=== PATIENT | male | born 1945 | race Caucasian/White ===

== ENCOUNTER 2017-09-21 11:26 | Inpatient (IN) | payer MEDICARE, MEDICAID ==
[2017-09-21] MEDS ORDERED: ISOVUE-370 76%-LOCM 1 ML ONE (12:03)
[2017-09-21 12:12] LABS: #Eosinphils 0.1 thou/uL (0.0-0.7); #Lymphocytes 1.6 thou/uL (1.20-3.40); #Monocytes 1.7 thou/uL (0.11-0.59); #Neutrophils 16.2 thou/uL (1.40-6.50); %Basophils 0.2 % (0.0-1.0); %Eosinophils 0.4 % (0.0-10.0); %Monocytes 8.8 % (0.0-10.0); %Neutrophils 82.6 % (42.0-75.0); Hemoglobin 14.6 g/dL (14.0-18.0); Mean Corpuscular HGB CONC 32.9 g/dL (32.0-36.0); Mean Corpuscular Hemoglobin 31.5 pg (27.0-31.0); Mean Corpuscular Volume 95.7 fl (80.0-94.0); Mean Platelet Volume 6.5 fL (7.4-10.4); Platelet Count 282 thou/uL (130-400); Red Blood Cell (RBC) Count 4.63 mill/uL (4.70-6.10); White Blood Cell (WBC) Count 19.6 thou/uL (4.8-10.8)
[2017-09-21 12:20] LABS: PTT 24.8 SEC (22.9-36.1); Prothrombin Time 13.6 SEC (12.0-14.7)
[2017-09-21 12:33] LABS: ALT (SGPT) 19 U/L (8-55); AST (SGOT) 64 U/L (5-34); Albumin 3.8 g/dL (3.4-4.8); Alkaline Phosphatase 49 U/L (40-150); Anion Gap 20 mmol/L (10-20); BUN (Urea Nitrogen) 26 mg/dL (8.4-25.7); Bilirubin, Total 1.5 mg/dL (0.2-1.2); CK (CPK) 1641 U/L (30-200); Calc. Creatinine Clearance 0 mL/min (70-130); Calcium 9.3 mg/dL (7.8-10.44); Carbon Dioxide 18 mmol/L (23-31); Chloride 94 mmol/L (98-107); Estimated GFR-MDRD 79; Globulin 3.8 g/dL (2.4-3.5); Glucose 107 mg/dL (83-110); Potassium 4.3 mmol/L (3.5-5.1); Protein, Total 7.6 g/dL (5.8-8.1); Sodium 128 mmol/L (136-145)
[2017-09-21 12:43] LABS: CKMB 7.7 ng/mL (0-6.6)
[2017-09-21 12:50] LABS: Troponin I 0.035 ng/mL (< 0.028)
--- NOTE | 2017-09-21 13:05 | RAD ---
LEFT KNEE 4 VIEWS: HISTORY: Pain. COMPARISON: None. FINDINGS: There are severe ostial calcifications. Surgical clips medial posterior soft tissues. No fracture. No malalignment. No significant edema. IMPRESSION: 1. No acute fracture or malalignment. 2. Severe vascular calcifications. POS: [facility]
--- NOTE | 2017-09-21 13:21 | RAD ---
CHEST ONE VIEW: History: Syncope. Comparison: 04-24-14 FINDINGS: New median sternotomy wires. No pneumothorax. No effusion. Cardiac silhouette and mediastinal contour s are similar. IMPRESSION: No acute intrathoracic abnormality. POS: [facility]
--- NOTE | 2017-09-21 15:06 | CT ---
CT BRAIN WITHOUT CONTRAST: HISTORY: Injury, right-sided pain, dizziness. FINDINGS: Comparison is made with the exam of 04/24/14. Changes of cortical atrophy and chronic small-vessel ischemic disease are again seen. The ventricula r size is appropriate and the basilar cisterns are patent. No evidence of acute infarct, hemorrhage, midline shift, or abnormal extraaxial fluid collections are seen. The bony calvarium is intact. Th ere is mucosal disease in the left maxillary sinus. IMPRESSION: No CT evidence of acute intracranial process. POS: [facility]
--- NOTE | 2017-09-21 15:15 | RAD ---
LEFT HIP TWO VIEWS: History: Fall. Comparison: None. FINDINGS: There is a fracture of the left femoral neck with foreshortening and mild displacement. IMPRESSION: Impacted left femoral neck fracture. POS: [facility]
--- NOTE | 2017-09-21 15:16 | RAD ---
PELVIS ONE VIEW: History: Fall. Comparison: None. FINDINGS: There is an impacted left femoral neck fracture with mild lateral displacement and mild varus angulat ion. IMPRESSION: Impacted left femoral neck fracture. POS: [facility]
[2017-09-21 15:21] LABS: Bilirubin Moderate (Negative); Blood, Urine Small (Negative); Clarity CLOUDY (Clear); Glucose, Urine (Dipstick) Negative (Negative); Leukocyte Negative (Negative); Nitrite Negative (Negative); Protein, Urine (Dipstick) 300 mg/dL (Neg-Trace); Specific Gravity, Urine 1.036 (1.002-1.036); pH, Urine 5.5 (5.0-9.0)
--- NOTE | 2017-09-21 15:21 | CT ---
CT FACIAL BOENS WITH CORONAL AND SAGITTAL REFORMATIONS: HISTORY: A 72-year-old male with a history of fall, dizziness, right-sided facial pain. FINDINGS: The facial bones appear intact. No temporomandibular dislocation is seen. No air fluid levels are s een in the paranasal sinuses. There is mucosal disease in the left maxillary sinus. There is tea bullosa of the middle turbinates bilaterally. IMPRESSION: No CT evidence of facial bone fracture. POS: [facility]
[2017-09-21 15:22] LABS: Bacteria/HPF None Seen HPF (None Seen); Pathc Cast-AUWi Flag 1.89 (0-2.49); Squamous Epithelial 0-3 HPF (0-3); WBC/HPF 0-3 HPF (0-3)
--- NOTE | 2017-09-21 15:24 | CT ---
CT CERVICAL SPINE WITHOUT CONTRAST: History Fall. Trauma. COMPARISON: None available. FINDINGS: The occipital condyles are intact. The odontoid process is intact. The mastoids are well aerated. Multilevel spondylosis of the cervical spine. Degenerative disk space disease most severe at C5-6 an d C6-7. There is 2 mm C7 over T1 anterolisthesis due to degenerative facet arthropathy. There are dense calcifications of intradural vertebral arteries bilaterally. The lung apices are clear. The paraspinal soft tissues are unremarkable. IMPRESSION: Degenerative changes. No fracture of the cervical spine. POS: [facility]
[2017-09-21 15:26] LABS: Hyaline Casts/LPF 0-3 HYALINE CAST LPF (0-3 Hyaline)
--- NOTE | 2017-09-21 15:41 | CT ---
CT THORAX WITH CONTRAST CT ABDOMEN WITH CONTRAST CT PELVIS WITH CONTRAST: (trauma protocol) 09/21/17 HISTORY: 72-year-old male status post fall, resulting in trauma to the chest, abdomen and pelvis. TECHNIQUE: IV administration of iodinated contrast media. No oral contrast media. Single phase scans of thorax, abdomen, and pelvis. Sagittal reconstructions of thoracic and lumbar spine. FINDINGS: Thoracic and lumbar spine: There is an old burst fracture with approximately 75% loss of height of T11, and an old compression f racture with anterior wedge loss of height of approximately 50% of T10, which were both present on pr evious MRI of 05/27/16. The rest of the thoracic and lumbar vertebral body heights are preserved. Thorax: The lungs are essentially clear. No pleural effusion or pneumothorax. No mediastinal hematoma or lymp hadenopathy. Sternotomy wires. Extensive atherosclerotic calcification of all major pulmonary arterie s. No cardiomegaly or pericardial effusion. No grossly displaced rib fracture or grossly displaced ac [place] sternal fracture. Abdomen: No evidence of traumatic injury to the bilateral kidneys, adrenals, pancreas, liver, or spleen. No hy dronephrosis. Atherosclerotic calcification of thoracic and abdominal aorta without aneurysm or ruptu re. Heavy atherosclerotic calcification of proximal bilateral renal arteries and superior mesenteric artery. No free fluid or retroperitoneal hematoma. Pelvis: There is a subcapital left femoral neck acute fracture with anterior angulation of fracture apex, and approximately 25 to 50% bone width anterosuperior displacement of distal fragment. The pelvic ring i s intact. No dislocation. No free fluid within the pelvic cavity. No extrapelvic hematoma. No traumat ic injury to the urinary bladder. Heavy atherosclerotic calcification of common, internal, and executive director al, iliac arteries, and the common, superficial, and profunda, femoral arteries. IMPRESSION: 1. Acute, traumatic, displaced, closed, left subcapital femoral neck fracture. 2. No other acute, traumatic injury identified. 3. Old compression fracture of T10 and old burst fracture of T11. 4. Extensive atherosclerotic disease of entire aorta and all of its branches, and all of the cor onary arteries. BECCA Davison POS: [facility]
[2017-09-21] MEDS ORDERED: Morphine 2 mg/2ml in 0.9% NaCl PF SYRINGE ONE (15:43)
[2017-09-21] MEDS ORDERED: Ondansetron ODT 4 MG TAB PO PRN (16:24)
[2017-09-21] MEDS ORDERED: Dextrose 50% Abboject 50 ML SYRINGE SLOW IVP PRN (16:24)
[2017-09-21] MEDS ORDERED: HYDROcodone/Acetaminophen 10/325 mg Tablet PO PRN (16:24)
[2017-09-21] MEDS ORDERED: Dextrose 5% in Water 1,000 ML IV PRN (16:24)
[2017-09-21] MEDS ORDERED: Ondansetron HCl/PF 4 MG/2 ML Vial IVP PRN (16:24)
[2017-09-21] MEDS ORDERED: CEFAZOLIN/Water 2 GM/20 ML SYRINGE SLOW IVP SCH (16:45)
--- NOTE | 2017-09-21 16:53 | HP ---
DATE OF ADMISSION: 09/21/2017 REQUESTING PHYSICIAN: Graham Mcdaniel M.D. ATTENDING SURGEON: Luis Antonio Yates M.D. CONSULTATIONS: Orthopedics, Dr. Flores. HISTORY OF PRESENT ILLNESS: The patient is a 72-year-old man who lives alone at the [facility] when he fell yesterday. He states that he was unable to activate his Life Alert and he believes it malfunctioned. The patient is unsure how long he actually was lying on the ground, b ut it was greater than 12 hours, he was found this afternoon and brought to the emergency department, evaluated and examined, noted to have a hip fracture and mild rhabdomyolysis, at which time we were asked to evaluate the patient for admission and obtain orthopedic consultation. ALLERGIES: None. MEDICATIONS: The patient's current medication list is not available. The nurses are attempting to r each the senior care to obtain his current medical list. PAST MEDICAL HISTORY: Hypertension, Parkinson's disease, coronary artery disease. PAST SURGICAL HISTORY: Appendectomy, hernia repair, coronary artery bypass graft surgery and tonsill ectomy. SOCIAL HISTORY: Patient lives independently in a senior care/assisted living. Patient states he dr inks approximately 5 drinks per day. He quit smoking many years ago and denies drug use. FAMILY MEDICAL HISTORY: Unknown. REVIEW OF SYSTEMS: Ten-point review of systems was negative, unless otherwise stated. PHYSICAL EXAMINATION: VITAL SIGNS: Blood pressure 156/77, heart rate 88, respirations 18, temperature is 98.4, oxygen satu ration is 95% on room air. GENERAL: The patient is resting comfortably in ER bed. He is alert and oriented x3. [place] coma s elly is 15. HEENT: Head is normocephalic. He has contusions noted to bilateral periorbital areas with some ecch ymosis on both and a superficial laceration to the right periorbital area. Nose is atraumatic withou t discharge. Ears are atraumatic without discharge. Oropharynx is clear. NECK: Nontender. Trachea is midline. No JVD. CHEST: Clear to auscultation with moderate inspiratory and expiratory effort. HEART: Regular rate and rhythm. ABDOMEN: Soft, flat, nontender with active bowel sounds. Pelvis is stable. The patient has tendern ess to palpation on the left consistent with his hip fracture. EXTREMITIES: Neurovascularly intact x4. BACK: By history was reported to be atraumatic and nontender. LABORATORY FINDINGS: White blood cell count 19.6, hemoglobin 14.6, hematocrit 44.3, platelets 282. Sodium 128, potassium 4.3, chloride 94, CO2 18, BUN 26, creatinine 0.94, glucose 107, magnesium 1.5, total bilirubin 1.5, AST 64, ALT 19, alkaline phosphatase 49. CK 1641, CK-MB 7.7, troponin 0.035. B PRINTER SLOTTER FEEDER 73.5, PT 14, INR 1, PTT 25. Urinalysis, protein 300, ketones 15, rbc's 7-10. RADIOGRAPHIC REPORTS: CT of the brain without contrast shows no CT evidence of acute intracranial pr ocess. CT of the facial bones without contrast shows no CT evidence of facial bone fractures. CT of the C-spine without contrast showed degenerative changes, no fracture of the cervical spine. CT of the chest, abdomen and pelvis with IV contrast shows an acute traumatic displaced closed left subcapi favian femoral neck fracture. No other acute traumatic injuries are identified. AP chest shows no acut e intrathoracic abnormality. Four views of the left knee showed no acute fracture or malalignment. Two views of the left hip showed impacted left femoral neck fracture. AP pelvis shows a left femoral neck shaft fracture. ASSESSMENT AND PLAN: 1. Status post fall greater than 12 hours ago. 2. Left hip fracture. 3. Rhabdomyolysis. 4. Pain secondary to acute trauma. Plan will be to admit the patient to the surgical floor. IV hydration to include sodium bicarbonate drip, pain control, pulmonary toilet, gastritis and mechanical DVT prophylaxis and pain management. The evaluation, examination and laboratory radiographic findings were done with Dr. Yates in the em ergency department and he was in agreement with this plan. The patient will be made n.p.o. after mid night and we will recheck his labs in the morning, sooner as needed.
[2017-09-21] MEDS ORDERED: Morphine 2 MG/ML SYRINGE SLOW IVP PRN (17:30)
[2017-09-21] MEDS ORDERED: Morphine 4 MG/ML VIAL SLOW IVP PRN (17:45)
[2017-09-21] MEDS ORDERED: Sodium Bicarbonate 150 MEQ in D5 1/4 NS 1,000 ML IV SCH (18:00)
[2017-09-21] MEDS: Acetaminophen 1,000 MG in Premix Bag 1 BAG IVPB SCH ×2 (18:04→23:38)
[2017-09-21] MEDS: Ketorolac Tromethamine 30 MG/ML VIAL IVP SCH ×2 (18:05→23:37)
[2017-09-21] MEDS: Famotidine 20 MG TAB PO SCH (20:16)
[2017-09-21 20:43] LABS: Lactic Acid 1.4 mmol/L (0.5-2.2)
[2017-09-21] MEDS ORDERED: Magnesium 2 GM/NS 0.9% 100 ML 2 GM in Premix Bag 1 BAG IVPB SCH (21:00)
[2017-09-21] MEDS ORDERED: Senokot 8.6 MG TAB PO PRN (21:17)
[2017-09-21] MEDS ORDERED: Acetaminophen 325 MG TAB PO PRN (21:17)
[2017-09-21] MEDS ORDERED: Nitroglycerin 0.4 MG TAB (25 Tab Bottle) PO PRN (21:17)
[2017-09-21] MEDS ORDERED: Bisacodyl 10 MG SUPP PR PRN (21:17)
--- NOTE | 2017-09-21 21:40 | PDOC.EVN ---
Event Note - Event Note Event Note: Patient seen and examined. Note dictated. Full code. DPOA - family
[2017-09-21] MEDS ORDERED: cloNIDine 0.1 MG TAB PO PRN (21:41)
[2017-09-21] MEDS ORDERED: Polyethylene Glycol 3350 17 GM Packet PO PRN (21:41)
[2017-09-21] MEDS ORDERED: Labetalol HCl 100 MG/20 ML VIAL SLOW IVP PRN (21:41)
[2017-09-21] MEDS ORDERED: Diabetic Tussin 200 MG/10 ML UDCUP PO PRN (21:41)
[2017-09-21] MEDS ORDERED: Calcium Carbonate 500 MG ChewTAB PO PRN (21:41)
[2017-09-21] MEDS ORDERED: Loratadine 10 MG TAB PO PRN (21:41)
[2017-09-21] MEDS ORDERED: Eucerin (Mineral Oil/Petrolatum,White) 30 gm Jar TOP PRN (21:41)
[2017-09-21] MEDS ORDERED: Aspirin 81 mg Enteric Coated Tablet PO SCH (21:45)
[2017-09-21] MEDS ORDERED: predniSONE 20 MG TAB PO SCH (21:45)
[2017-09-21] MEDS ORDERED: Folic Acid 1 MG TAB PO SCH (21:45)
[2017-09-21] MEDS ORDERED: Multivit, Therapeutic 1 TAB PO SCH (21:45)
[2017-09-21] MEDS ORDERED: Metoprolol Tartrate 25 MG TAB PO SCH (22:00)
[2017-09-21] MEDS ORDERED: TROSPIUM 20 MG TABLET PO SCH (22:00)
[2017-09-21] MEDS ORDERED: Gabapentin 300 MG CAP PO SCH (22:00)
--- NOTE | 2017-09-21 22:42 | ADD-CON ---
This is an addendum to H&P dictated by Dr. Jr Lane, Trauma PA. This is a 72-year-old male who presents after a fall, was down for 24 hours before he was found. He has been found to have evidence of left femoral neck fracture. He has been hemodynamically stable. His creatine kinase is elevated at 1641 and so he is in rhabdomyolysis. The patient will be admitted , medical consult will be obtained. Dr. Flores will see from an orthopedic standpoint. Again, ple ase see Dr. Jr Lane's note for details.
--- NOTE | 2017-09-21 23:20 | CON ---
DATE OF CONSULTATION: 09/21/2017 REASON FOR CONSULTATION: Medical management. PRIMARY CARE PHYSICIAN: Jc Prieto M.D. ATTENDING PHYSICIAN: Luis Antonio Yates M.D. (Trauma team) REASON FOR ADMISSION: Fall. HISTORY OF PRESENT ILLNESS: Patient is a 72-year-old male with hypertension, hyperlipidemia, Khai on disease and degenerative joint disease on chronic steroids, presented to the emergency room with a n episode of fall. Patient is a poor historian and not much information is available from the patien t. He was on the floor for approximately 24 hours per ER report. He denies any loss of consciousnes s. He is unable to describe his symptoms appropriately. He denies any chest pain, shortness of evnone th, syncope, fever, chills or diaphoresis. In the emergency room, initial vital signs showed temperature 98.2, respiration 18, pulse rate of 121 with blood pressure 130/85. His EKG showed sinus tachycardia without significant ST-T wave changes. His CK was 1641 with sodium of 128. WBC of 19.6 with 82.6% neutrophils, lactic acid 3.2. Urinalys is was negative for WBC or bacteria. His chest x-ray was negative for infiltrate. CT scan of the br ain, facial bone CT, neck CT and chest abdomen CT was negative for acute findings except for subcapit al left femoral neck fracture with anterior angulation of fracture and displacement of the distal fra gment. He received morphine with IV fluids in the emergency room. PAST MEDICAL HISTORY: 1. Hypertension 2. Hyperlipidemia. 3. Parkinson disease. 4. Degenerative disease on chronic steroids. 5. Chronic hyponatremia. 6. Chronic alcoholism. 7. History of falls. 8. Deconditioning. 9. History of compression fractures of thoracic spine. 10. Coronary artery disease. 11. History of paroxysmal atrial fibrillation in the past. PAST SURGICAL HISTORY: 1. Coronary artery bypass grafting. 2. Appendectomy. 3. Tonsillectomy. CURRENT HOME MEDICATIONS: The patient is unable to recall any of his home medications. Per review o radha Mendez's office record from April of this year, his medications were, metoprolol tartrate 50 mg daily, Cymbalta 30 mg twice a day, gabapentin 300 mg b.i.d., losartan 100 mg daily, Mobic 15 mg marily y, amlodipine 2.5 mg daily, prednisone 10 mg daily, tolterodine ER 4 mg daily. ALLERGIES: The patient is allergic to STATINS that causes muscle aches. FAMILY HISTORY: Negative for any inheritable disease per patient report. SOCIAL HISTORY: Patient currently lives alone. He drinks 3-4 beers on the daily basis. Denies any drug use. He ambulates with the help of a rolling walker. He has history of multiple falls in the p ast. REVIEW OF SYSTEMS: The following complete review of systems was negative, unless otherwise mentioned in the HPI or below: Constitutional: Weight loss or gain, ability to conduct usual activities. Skin: Rash, itching. Ey es: Double vision, pain. ENT/Mouth: Nose bleeding, neck stiffness, pain, tenderness. Cardiovascul ar: Palpitations, dyspnea on exertion, orthopnea. Respiratory: Shortness of breath, wheezing, coug h, hemoptysis, fever or night sweats. Gastrointestinal: Poor appetite, abdominal pain, heartburn, n ausea, vomiting, constipation, or diarrhea. Genitourinary: Urgency, frequency, dysuria, nocturia. Musculoskeletal: Pain, swelling. Neurologic/Psychiatric: Anxiety, depression. Allergy/Immunologic : Skin rash, bleeding tendency. PHYSICAL EXAMINATION: VITAL SIGNS: As discussed above. GENERAL: A 72-year-old male in no apparent distress. Denies any pain at this time. HEENT: Head atraumatic, normocephalic, sclerae are anicteric. Dry mucous membrane, no oral lesion. NECK: Supple, no JVD appreciated. No carotid bruit. LUNGS: Clear to auscultation bilaterally. No wheezing or rales. HEART: S1, S2 present. Regular rate and rhythm, tachycardic. No rubs or gallops. ABDOMEN: Soft, nontender, bowel sounds present, no rebound or guarding. EXTREMITIES: No edema or calf tenderness. NEUROLOGIC: Grossly nonfocal, moves all four extremities. PSYCHIATRY: Alert, awake, oriented x3. MUSCULOSKELETAL: No joint swelling or tenderness except for left lower extremity which was not asses sed. SKIN: Warm and dry. LYMPH NODES: No palpable lymph nodes in the neck. PERIPHERAL VASCULAR: Radial pulses palpable bilaterally. LABORATORY AND X-RAY FINDINGS: CBC showed WBC 19.6 with hemoglobin 14.6, platelet 282. PT, INR, PTT normal range. Chemistries showed sodium 128, potassium 4.3, chloride 94, bicarbonate 18, BUN 26, cr eatinine 0.94, glucose 107. Magnesium 1.5. Lactic acid 3.2. Repeat lactic acid 1.4. CK was 1641, total bilirubin 1.5 with AST of 64. Urinalysis was negative for WBC or bacteria. Chest x-ray by my review as discussed above. EKG by my review as discussed above. IMPRESSION AND PLAN: 1. Left femoral neck fracture, management per trauma team. 2. Rhabdomyolysis. 3. Hypomagnesemia. 4. Chronic hyponatremia. 5. Metabolic acidosis/lactic acidosis. 6. Abnormal liver function tests, probably secondary to alcoholic hepatitis. 7. Dehydration. 8. Leukocytosis without any infectious etiology. 9. Sinus tachycardia, probably secondary to dehydration. 10. Coronary artery disease, status post bypass. 11. Parkinson disease. 12. History of degenerative joint disease on chronic steroids, prescribed by Dr. Mendez 13. Depression, on Cymbalta. 14. Chronic pain syndrome on gabapentin. 15. Hypertension, on metoprolol, losartan and amlodipine. 16. Chronic alcoholism with a history of delirium tremens in the past. 17. History of multiple falls. 18. Physical deconditioning. 19. Elevated troponins, probably secondary to demand ischemia. 20. Paroxysmal atrial fibrillation in the past, not an anticoagulation candidate due to recurrent fa lls. PLAN: The patient is currently admitted under trauma team on the surgical floor. We will resume bet a blockers at a low dose. We will resume chronic steroids to prevent going into adrenal insufficienc y. We will repeat cardiac enzymes in a.m. Continue IV fluids. Replace magnesium. Add thiamine, fo lic acid and multivitamins. Due to elevated troponins in the indeterminate range, we will start him on aspirin. Patient never had any chest pain. His troponins are probably elevated from demand ische [place] from sinus tachycardia. We will repeat labs in a.m. Thank you for this consultation. We will follow with you. Plan of care was discussed with the patient in detail. He stated understanding.
[2017-09-22] MEDS: Acetaminophen 1,000 MG in Premix Bag 1 BAG IVPB SCH ×2 (05:07→12:00)
[2017-09-22] MEDS: Ketorolac Tromethamine 30 MG/ML VIAL IVP SCH (05:08)
[2017-09-22] MEDS: Metoprolol Tartrate 25 MG TAB PO SCH ×3 (05:16→22:55)
[2017-09-22 06:31] LABS: #Eosinphils 0.3 thou/uL (0.0-0.7); #Lymphocytes 2.8 thou/uL (1.20-3.40); #Monocytes 1.3 thou/uL (0.11-0.59); #Neutrophils 12.4 thou/uL (1.40-6.50); %Basophils 0.2 % (0.0-1.0); %Lymphocytes 16.5 % (21.0-51.0); %Monocytes 7.9 % (0.0-10.0); %Neutrophils 73.5 % (42.0-75.0); Hemoglobin 12.9 g/dL (14.0-18.0); Mean Corpuscular HGB CONC 33.3 g/dL (32.0-36.0); Mean Corpuscular Hemoglobin 31.9 pg (27.0-31.0); Mean Corpuscular Volume 95.8 fl (80.0-94.0); Mean Platelet Volume 6.7 fL (7.4-10.4); Platelet Count 262 thou/uL (130-400); RBC Distribution Width 11.8 % (11.5-14.5); Red Blood Cell (RBC) Count 4.06 mill/uL (4.70-6.10); White Blood Cell (WBC) Count 16.8 thou/uL (4.8-10.8)
[2017-09-22 06:50] LABS: Troponin I 0.043 ng/mL (< 0.028)
[2017-09-22 06:52] LABS: CKMB 7.5 ng/mL (0-6.6); Critical Call CKMBM RESULT DECREASING
[2017-09-22 07:19] LABS: ALT (SGPT) 18 U/L (8-55); AST (SGOT) 57 U/L (5-34); Albumin 3.4 g/dL (3.4-4.8); Alkaline Phosphatase 49 U/L (40-150); Anion Gap 15 mmol/L (10-20); BUN (Urea Nitrogen) 36 mg/dL (8.4-25.7); Bilirubin, Total 1.2 mg/dL (0.2-1.2); CK (CPK) 1212 U/L (30-200); Calc. Creatinine Clearance 47 mL/min (70-130); Calcium 8.7 mg/dL (7.8-10.44); Carbon Dioxide 25 mmol/L (23-31); Chloride 95 mmol/L (98-107); Estimated GFR-MDRD 49; Globulin 3.1 g/dL (2.4-3.5); Glucose 90 mg/dL (83-110); Magnesium 2.7 mg/dL (1.6-2.6); Phosphorus 3.5 mg/dL (2.3-4.7); Potassium 3.6 mmol/L (3.5-5.1); Protein, Total 6.5 g/dL (5.8-8.1); Sodium 131 mmol/L (136-145)
[2017-09-22] MEDS ORDERED: predniSONE 20 MG TAB PO SCH (08:00)
[2017-09-22 08:12] LABS: Anion Gap 16 mmol/L (10-20); BUN (Urea Nitrogen) 38 mg/dL (8.4-25.7); CK (CPK) 1085 U/L (30-200); Calc. Creatinine Clearance 46 mL/min (70-130); Calcium 8.6 mg/dL (7.8-10.44); Carbon Dioxide 25 mmol/L (23-31); Chloride 94 mmol/L (98-107); Estimated GFR-MDRD 47; Glucose 106 mg/dL (83-110); Potassium 3.6 mmol/L (3.5-5.1); Sodium 131 mmol/L (136-145)
[2017-09-22] MEDS ORDERED: DULoxetine 30 MG CAP PO SCH (09:00)
[2017-09-22] MEDS ORDERED: Gabapentin 300 MG CAP PO SCH (09:00)
[2017-09-22] MEDS ORDERED: Meropenem 1 GM in Sodium Chloride 0.9% 100 ML IVPB SCH (09:00)
--- NOTE | 2017-09-22 09:02 | PDOC.PN ---
- Subjective Encounter Start Date: 09/22/17 Encounter Start Time: 08:58 Patient seen and examined. Lethargic. No overnight events - Objective Resuscitation Status: Resuscitation Status FULL:Full Resuscitation MAR Reviewed: Yes Vital Signs & Weight: Vital Signs (12 hours) Temp Pulse Resp BP Pulse Ox 09/22/17 07:30 97.6 F 67 16 109/67 96 09/22/17 05:25 75 18 131/87 98 09/22/17 04:38 97.6 F 70 18 96/66 96 09/22/17 00:40 99.0 F 97 18 123/76 95 Weight Weight 155 lb I&O: 09/21/17 09/22/17 09/23/17 06:59 06:59 06:59 Intake Total 1320 Output Total 350 Balance 970 Result Diagrams: 09/22/17 05:28 09/22/17 07:37 Phys Exam - Physical Examination Constitutional: NAD Respiratory: no wheezing, no rhonchi S Cardiovascular: RRR, no rub no heaves/pulsations Gastrointestinal: soft, non-tender, positive bowel sounds Musculoskeletal: no edema Neuro/Psych - Cannot assess due to lethargy Dx/Plan - Plan DVT proph w/SCDs IMPRESSION: 1. Toxic Metabolic Encephalopathy - multifactorial 2. Rhabdomyolysis. 3. Coronary artery disease, status post bypass. started on ASA 4. Suspected Sepsis 5. Chronic hyponatremia 6. Abnormal liver function tests, probably secondary to alcoholic hepatitis. 7. Chronic pain syndrome on gabapentin. 8. Depression, on Cymbalta. 9. Hypertension 10. History of degenerative joint disease on chronic steroids 11. Chronic alcoholism with a history of delirium tremens in the past. 12. History of multiple falls. 13. Elevated troponins, probably secondary to demand ischemia. 14. Paroxysmal atrial fibrillation in the past, not an anticoagulation candidate due to recurrent falls/Left femoral neck fracture, management per trauma team/Hypomagnesemia/Metabolic acidosis/lactic acidosis/Dehydration/ Parkinson disease/Sinus tachycardia, probably secondary to dehydration/Physical deconditioning. PLAN: * Transfer to stroke * Consult Neuro * Hold Cymbalta/Gabapentin * CT brain ordered * Neurochecks * Blood cultures * Empiric Atbx * Cont other meds as below * Change Prednisone to IV Solumedrol 20 mg Q8h due to chronic steroid use Laboratory Tests 09/22/17 09/22/17 09/22/17 05:28 05:28 05:28 Creatine Kinase 1212 H Troponin I 0.043 H TSH 3rd Generation 1.0116 Review of Systems - Review of Systems Other: Cannot obtain due to current cognition - Medications/Allergies Allergies/Adverse Reactions: Allergies Allergy/AdvReac Type Severity Reaction Status Date / Time tramadol Allergy Verified 05/02/14 08:59 Medications: Current Medications Acetaminophen (Tylenol) 650 mg PO Q4H PRN PRN Reason: Headache/Fever or Pain Albuterol/Ipratropium (Duoneb) 3 ml NEB Q4H PRN PRN Reason: Wheezing Aspirin (Ecotrin) 81 mg PO DAILY [facility] Bisacodyl (Dulcolax) 10 mg CA Q24H PRN PRN Reason: Constipation Calcium Carbonate (Tums) 1,000 mg PO Q4H PRN PRN Reason: Heartburn or Indigestion Cefazolin Sodium (Ancef) 2 gm SLOW IVP WILLCALL [facility] Stop: 09/22/17 16:46 Clonidine (Catapres) 0.1 mg PO Q4H PRN PRN Reason: Systolic BP > 180 Dextrose/Water (Dextrose 50%) 25 gm SLOW IVP PRN PRN PRN Reason: Hypoglycemia Docusate Sodium (Colace) 100 mg PO BID [facility] Famotidine (Pepcid) 20 mg PO BID [facility] Last Admin: 09/21/17 20:16 Dose: 20 mg Folic Acid (Folvite) 1 mg PO HS [facility] Glucagon (Glucagon) 1 mg IM PRN PRN PRN Reason: Hypoglycemia Guaifenesin (Robitussin Sf) 200 mg PO Q4H PRN PRN Reason: Cough Hydralazine HCl (Apresoline) 10 mg SLOW IVP Q6H PRN PRN Reason: SBP > 150 Acetaminophen 1,000 mg/ Device 100 mls @ 400 mls/hr IVPB Q6HR [facility] Stop: 09/22/17 12:14 Last Admin: 09/22/17 05:07 Dose: 100 mls Dextrose/Water (D5w) 1,000 mls @ 0 mls/hr IV .Q0M PRN; As Directed PRN Reason: Hypoglycemia Sodium Bicarbonate 150 meq/ (Dextrose/Sodium Chloride) 1,150 mls @ 110 mls/hr IV INF [facility] Last Admin: 09/21/17 20:17 Dose: 1,150 mls Vancomycin HCl 1 gm/ Device 200 mls @ 200 mls/hr IVPB Q12H [facility] Meropenem 1 gm/ Sodium (Chloride) 100 mls @ 200 mls/hr IVPB Q8H [facility] Vancomycin HCl 1 gm/ Device 200 mls @ 200 mls/hr IVPB ASDIR [facility] Labetalol HCl (Normodyne) 10 mg SLOW IVP Q4H PRN PRN Reason: Systolic BP > 180 Loratadine (Claritin) 10 mg PO DAILYPRN PRN PRN Reason: Sinus Symptoms Methylprednisolone Sodium Succinate (Solu-Medrol) 20 mg IVP Q8H [facility] Metoprolol Tartrate (Lopressor) 12.5 mg PO BID [facility] Last Admin: 09/22/17 05:16 Dose: 12.5 mg Mineral Oil/White Petrolatum (Eucerin Cream) 0 gm TOP BIDPRN PRN PRN Reason: Dry Skin Miscellaneous Medication (Pharmacy To Dose) 1 each IVPB ONE PRN PRN Reason: Pharmacy to dose Morphine Sulfate (Morphine) 2 mg SLOW IVP Q2H PRN PRN Reason: Mild Pain (1-3) Morphine Sulfate (Morphine) 4 mg SLOW IVP Q2H PRN PRN Reason: Moderate Pain (4-6) Multivitamins (Theragran) 1 tab PO HS [facility] Nitroglycerin (Nitrostat) 0.4 mg PO Q5MIN PRN PRN Reason: Chest Pain Ondansetron HCl (Zofran Odt) 4 mg PO Q6H PRN PRN Reason: Nausea/Vomiting Ondansetron HCl (Zofran) 4 mg IVP Q6H PRN PRN Reason: Nausea Polyethylene Glycol (Miralax) 17 gm PO DAILY PRN PRN Reason: Constipation Saccharomyces Boulardii (Florastor) 250 mg PO DAILY [facility] Senna (Senokot) 2 tab PO HSPRN PRN PRN Reason: Constipation Sodium Chloride (Flush - Normal Saline) 10 ml IVF PRN PRN PRN Reason: Saline Flush Thiamine HCl (Thiamine) 100 mg PO HS [facility] Trospium (Trospium Chloride) 20 mg PO BID [facility]
[2017-09-22] MEDS ORDERED: Vancomycin HCl 1 GM in Premix Bag 1 BAG IVPB SCH ×4 (09:30→14:00)
--- NOTE | 2017-09-22 10:58 | CT ---
CT BRAIN: History: Altered mental status, lethargy. Fall at home. Technique: Noncontrast enhanced CT images of the brain obtained from the base of the skull to the matthew shilpa. Brain and bone windows were obtained. Comparison: One day earlier. FINDINGS/IMPRESSION: No evidence of acute intracranial masses, hemorrhages, strokes or contusions seen. Cortical atrophy a nd deep white matter ischemic changes seen. No significant interval change is seen since the previous CT from one day earlier. POS: [facility]
--- NOTE | 2017-09-22 11:52 | CON ---
DATE OF CONSULTATION: 09/21/2017 REQUESTING PHYSICIAN: Dr. Gareth Yates PRINCIPAL COMPLAINT: Right hip pain. HISTORY OF PRESENT ILLNESS: The patient is a 72-year-old gentleman with history of hypertension, hyp erlipidemia, also past history of coronary artery bypass graft. The patient also has a history of Pa lacey's. He lives independently, but does have home health care come on a daily basis for 2-3 hour s per day. The patient was found down earlier today with complaints of right hip pain and inability to move or ambulate. They estimate that he was down for at least 24 hours. It is unknown whether th ere was any loss of consciousness. Upon arrival at [place], he was found to be awake and alert, b ut did not have a great memory of the events that led to his right femoral neck fracture. He was als o worked up with labs and was found to have a CK level of 1641 with a sodium of 128. Given the recen t trauma he was admitted to the Trauma Surgical Service and medical consultation requested for his pr esumed mild rhabdomyolysis and ongoing chronic medical problems. PAST MEDICAL HISTORY: Remarkable for hypertension, hyperlipidemia, Parkinson's, chronic alcoholism, history of falls. PAST SURGICAL HISTORY: Includes coronary artery bypass, appendectomy, tonsillectomy. MEDICATIONS: The patient is unable to give a list of his home medications, but looking at the record in the emergency room it appears he does take metoprolol, gabapentin, losartan, an anti-inflammatory and other medications, although I do not have a comprehensive list at this time. ALLERGIES: STATINS cause muscle aches. FAMILY HISTORY: Noncontributory. SOCIAL HISTORY: He does drink alcohol on a daily basis with 3-4 alcoholic beverages per day. He den ies history of current cigarette smoking. REVIEW OF SYSTEMS: He does not report any obvious fevers or chills recently. He does have some shor tness of breath with exertion. He also has some mild stocking distribution neuropathy distally witho ut an obvious etiology. PHYSICAL EXAMINATION: HEENT: The patient is found to have an abrasion and scab over the right eye, but with no erythema. He also has drainage from the right eye that he states is chronic. His neck is nontender. HEART: Regular rate and rhythm with a 2/6 systolic ejection blowing murmur. LUNGS: Clear to auscultation bilaterally, but with shallow breath sounds. ABDOMEN: Round and nontender. PELVIS: Stable. EXTREMITIES: Remarkable for right lower extremity that is shortened and held in external rotation. He is able to wiggle his toes, but has some mild decreased sensation bilateral lower extremities. Kn ee, ankle and feet appear atraumatic. X-RAY FINDINGS: X-rays of the hip show a base of neck fracture with displacement and some mild commi nution. LABORATORY: The patient has an INR of 1.0. He has a white blood cell count 19.6, a hematocrit of 44 .3 and 282,000 platelets. His chemistries are remarkable for a sodium of 128. He is found to have a CPK of 1641 with a troponin of 0.035. ASSESSMENT: A 72-year-old gentleman status post unwitnessed fall at home with right femoral neck fra cture. PLAN: At this time, we will proceed with hemiarthroplasty once the patient has been stabilized medic ally. We will obtain informed consent prior to surgery. I have briefly discussed with patient the r isks of surgery. These include, but are not limited to bleeding, infection, nerve injury, DVT, PE, l oss of limb or life. The patient appears to understand and does wish to proceed. Consent will be ob tained prior to surgery.
--- NOTE | 2017-09-22 11:52 | PRG ---
DATE OF SERVICE: 09/22/2017 SUBJECTIVE: The patient is hospital day #2 status post ground level fall which he had reportedly fel l approximately 24 hours earlier and was unable to notify anyone. The patient would eventually be ab le to get help and was brought to the Emergency Department, evaluated, examined and noted to be havin g some rhabdomyolysis and sustained a hip fracture. Overnight, there were no reported issues. The p atient was made n.p.o. with the plan being operative intervention on this hip fracture today. Unfort unately, this morning when the orthopedic surgeon came to consent the patient, the patient was extrem rachel drowsy and he felt that he was unable to properly consent the patient for procedure. OBJECTIVE: VITAL SIGNS: Temperature is 97.6, heart rate 67, blood pressure 109/67, respirations 16. GENERAL: The patient is resting in bed. He is asleep. He will open his eyes briefly when I speak t o him and will nod his head that he is not having any pain, but he is definitely more somnolent today than he was yesterday when I had seen him in the emergency department. HEENT: Unchanged. LUNGS: Clear to auscultation with shallow respirations. The patient is not following the command to take a deep breath during my examination. HEART: Regular rate and rhythm. ABDOMEN: Soft, flat, nontender with hypoactive bowel sounds. EXTREMITIES: Capillary refill is less than 3 seconds. Pulses are 2+ in all 4 extremities. LABORATORY DATA: White blood cell count 16.8, hemoglobin 12.9, hematocrit 38.9, platelets 262. Sodi um 131, potassium 3.6, chloride 94, CO2 of 25, BUN 38, creatinine 1.47, glucose 106. CK 1085. CK-MB 7.5, troponin 0.043. ASSESSMENT AND PLAN: 1. Status post ground level fall. 2. Rhabdomyolysis. 3. Left hip fracture. 4. Probable encephalopathy. Plan will be to continue n.p.o. status. We will review all of his medications to ensure that there a re no meds that could possibly contributed to his somnolence. We will obtain a brain CT this morning for the sake of completeness and thoroughness. After discussion with Dr. Rothman we agreed that it is best that move the patient to the stroke floor for monitoring. We will adjust his care as needed. This case was discussed with Dr. Yates at rounds also this morning.
[2017-09-22] MEDS: Aspirin 81 mg Enteric Coated Tablet PO SCH (11:55)
[2017-09-22] MEDS: Docusate 100 MG CAP PO SCH ×2 (11:55→22:14)
[2017-09-22] MEDS: Famotidine 20 MG TAB PO SCH ×2 (11:55→22:14)
[2017-09-22] MEDS: Saccharomyces boulardii 250 MG CAP PO SCH (11:55)
[2017-09-22] MEDS: TROSPIUM 20 MG TABLET PO SCH ×2 (11:56→22:15)
[2017-09-22] MEDS: MEROPENEM 1 GM/50 ML 1 GM in Premix Bag 1 BAG IVPB SCH ×2 (12:00→23:06)
[2017-09-22] MEDS: D5 0.9% NS w/ 20 mEq KCl 1,000 ML IV SCH ×2 (12:04→22:15)
[2017-09-22] MEDS: hydrALAZINE 20 MG/ML VIAL SLOW IVP PRN (16:07)
[2017-09-22] MEDS ORDERED: Ziprasidone 20 MG VIAL IM PRN (17:33)
[2017-09-22] MEDS: Folic Acid 1 MG TAB PO SCH (22:14)
[2017-09-22] MEDS: Multivit, Therapeutic 1 TAB PO SCH (22:15)
[2017-09-22] MEDS ORDERED: Acetaminophen 650 MG Suppository PR PRN (22:37)
[2017-09-23] MEDS: hydrALAZINE 20 MG/ML VIAL SLOW IVP PRN (03:57)
[2017-09-23] MEDS: D5 0.9% NS w/ 20 mEq KCl 1,000 ML IV SCH ×2 (04:23→20:12)
[2017-09-23 05:09] LABS: #Lymphocytes 0.8 thou/uL (1.20-3.40); #Monocytes 0.5 thou/uL (0.11-0.59); #Neutrophils 11.8 thou/uL (1.40-6.50); %Basophils 0.1 % (0.0-1.0); %Eosinophils 0.2 % (0.0-10.0); %Lymphocytes 6.1 % (21.0-51.0); %Monocytes 3.5 % (0.0-10.0); %Neutrophils 90.1 % (42.0-75.0); Hemoglobin 12.7 g/dL (14.0-18.0); Mean Corpuscular HGB CONC 33.8 g/dL (32.0-36.0); Mean Corpuscular Hemoglobin 32.4 pg (27.0-31.0); Mean Corpuscular Volume 95.9 fl (80.0-94.0); Mean Platelet Volume 6.4 fL (7.4-10.4); Platelet Count 266 thou/uL (130-400); RBC Distribution Width 11.8 % (11.5-14.5); Red Blood Cell (RBC) Count 3.93 mill/uL (4.70-6.10); White Blood Cell (WBC) Count 13.1 thou/uL (4.8-10.8)
[2017-09-23 05:39] LABS: ALT (SGPT) 18 U/L (8-55); AST (SGOT) 46 U/L (5-34); Albumin 3.3 g/dL (3.4-4.8); Alkaline Phosphatase 42 U/L (40-150); Anion Gap 13 mmol/L (10-20); BUN (Urea Nitrogen) 30 mg/dL (8.4-25.7); Bilirubin, Total 0.6 mg/dL (0.2-1.2); CK (CPK) 593 U/L (30-200); Calc. Creatinine Clearance 86 mL/min (70-130); Calcium 8.5 mg/dL (7.8-10.44); Carbon Dioxide 24 mmol/L (23-31); Chloride 99 mmol/L (98-107); Estimated GFR-MDRD Greater than 90; Globulin 3.3 g/dL (2.4-3.5); Glucose 116 mg/dL (83-110); Magnesium 2.4 mg/dL (1.6-2.6); Phosphorus 2.6 mg/dL (2.3-4.7); Protein, Total 6.6 g/dL (5.8-8.1); Sodium 132 mmol/L (136-145)
[2017-09-23] MEDS: Metoprolol Tartrate 25 MG TAB PO SCH ×2 (05:51→22:40)
[2017-09-23 08:34] VITALS: BMI 24.6
[2017-09-23] MEDS ORDERED: Vancomycin HCl 1 GM in Premix Bag 1 BAG IVPB SCH (09:00)
[2017-09-23] MEDS: Famotidine 20 MG TAB PO SCH ×2 (09:28→22:41)
[2017-09-23] MEDS: Docusate 100 MG CAP PO SCH ×2 (09:28→22:41)
[2017-09-23] MEDS: Saccharomyces boulardii 250 MG CAP PO SCH (09:28)
[2017-09-23] MEDS: TROSPIUM 20 MG TABLET PO SCH ×2 (09:28→22:44)
[2017-09-23] MEDS: Aspirin 81 mg Enteric Coated Tablet PO SCH (09:28)
[2017-09-23] MEDS: MEROPENEM 1 GM/50 ML 1 GM in Premix Bag 1 BAG IVPB SCH (10:41)
[2017-09-23] MEDS ORDERED: MEROPENEM 1 GM/50 ML 1 GM in Premix Bag 1 BAG IVPB SCH (11:00)
--- NOTE | 2017-09-23 11:38 | PRG ---
DATE OF SERVICE: 09/23/2017 SUBJECTIVE: The patient is hospital day #3 status post ground level fall in which he fell approximat rachel up to 24 hours prior to presentation. Patient was admitted for rhabdomyolysis and left hip fract ure. Yesterday, he had been scheduled for his surgery, but due to some altered mental status, the saturnino pearson was unable to consent for the procedure, so it was decided to wait and see if it would resolve which did after stopping some sedating type medicines and getting the patient hydrated. In that afte rnoon, he became much more alert and this morning he is back to his baseline and is able to consent f or the surgery. PHYSICAL EXAMINATION: VITAL SIGNS: Temperature is 98.3, heart rate 81, blood pressure 161/70, respirations 18, and oxygen saturation is 95% on room air. GENERAL: Patient is resting comfortably. He is awake, conversant and appropriate. LUNGS: Clear to auscultation bilaterally. HEART: Regular rate and rhythm. ABDOMEN: Soft, flat, and nontender with active bowel sounds. EXTREMITIES: Neurovascularly intact x4. LABORATORY DATA AND IMAGING DATA: White blood cell count 13.1, hemoglobin 12.7, hematocrit 37.7, and platelets 266. Sodium 132, potassium 4.0, chloride 99, CO2 24, BUN 30, creatinine 0.77, glucose 116 , magnesium 2.4, and phosphorus 2.6. There are no radiographs to review this morning. ASSESSMENT AND PLAN: 1. Status post ground level fall. 2. Rhabdomyolysis, resolving. 3. Left hip fracture, awaiting open reduction and internal fixation by orthopedics today. PLAN: Will be to continue supportive care and begin physical and occupational therapy once patient i s postoperative. At that time, placement will be discussed also. His case was discussed with Dr. Saturnino cordero this morning during rounds.
--- NOTE | 2017-09-23 11:44 | PDOC.PN ---
- Subjective Encounter Start Date: 09/23/17 Encounter Start Time: 11:41 Patient seen and examined. No new complaints. No overnight events. Mentation improved - Objective Resuscitation Status: Resuscitation Status FULL:Full Resuscitation MAR Reviewed: Yes Vital Signs & Weight: Vital Signs (12 hours) Temp Pulse Resp BP BP Pulse Ox 09/23/17 07:34 98.3 F 81 18 95 09/23/17 07:30 97.8 F 73 16 161/70 H 97 09/23/17 05:50 91 136/78 09/23/17 03:57 78 166/75 H 09/23/17 03:49 98.3 F 78 20 166/75 H 94 L 09/22/17 23:53 98.5 F 80 16 132/69 95 Weight Admit Weight 155 lb Weight 152 lb 11.2 oz I&O: 09/22/17 09/23/17 09/24/17 06:59 06:59 06:59 Intake Total 1320 1250 Output Total 350 1100 Balance 970 150 Result Diagrams: 09/23/17 04:44 09/23/17 04:44 Additional Labs: Accuchecks 09/23/17 09/22/17 04:43 12:16 POC Glucose 120 H 105 EKG Reviewed by me: Yes (Tele SR) Phys Exam - Physical Examination Constitutional: NAD Respiratory: no wheezing, no rhonchi Cardiovascular: RRR, no rub Gastrointestinal: soft, non-tender, positive bowel sounds Musculoskeletal: no edema Neurological: moves all 4 limbs Dx/Plan - Plan DVT proph w/SCDs 1. Toxic Metabolic Encephalopathy - improved 2. Rhabdomyolysis CK improving 3. Coronary artery disease, status post bypass. started on ASA 4. Suspected Sepsis - cultures negative 5. Chronic hyponatremia 6. Abnormal liver function tests, probably secondary to alcoholic hepatitis. 7. Chronic pain syndrome on gabapentin. 8. Depression, on Cymbalta. 9. Hypertension 10. History of degenerative joint disease on chronic steroids 11. Chronic alcoholism with a history of delirium tremens in the past. 12. History of multiple falls. 13. Elevated troponins, probably secondary to demand ischemia. 14. Paroxysmal atrial fibrillation in the past, not an anticoagulation candidate due to recurrent falls/Left femoral neck fracture, management per trauma team/Hypomagnesemia/Metabolic acidosis/lactic acidosis/Dehydration/ Parkinson disease/Sinus tachycardia, probably secondary to dehydration/Physical deconditioning. PLAN: * Transfer to surgical after surgery * Neuro input apprecaited * Cymbalta/Gabapentin on hold * Change Steroids IV to BID - change to PO in AM * dc Atbx * Cont other meds as below * AM labs Review of Systems - Review of Systems Respiratory: negative: Cough, Dry, Shortness of Breath, Hemoptysis, SOB with Excertion, Pleuritic Pain, Sputum, Wheezing Cardiovascular: negative: chest pain, palpitations, orthopnea, paroxysmal nocturnal dyspnea, edema, light headedness Gastrointestinal: negative: Nausea, Vomiting, Abdominal Pain, Diarrhea, Constipation, Melena, Hematochezia, Other - Medications/Allergies Allergies/Adverse Reactions: Allergies Allergy/AdvReac Type Severity Reaction Status Date / Time tramadol Allergy Verified 05/02/14 08:59 Medications: Current Medications Acetaminophen (Tylenol) 650 mg PO Q4H PRN PRN Reason: Headache/Fever or Pain Last Admin: 09/22/17 22:54 Dose: 650 mg Acetaminophen (Tylenol) 650 mg SC Q4H PRN PRN Reason: Headache/Fever or Pain Albuterol/Ipratropium (Duoneb) 3 ml NEB Q4H PRN PRN Reason: Wheezing Aspirin (Ecotrin) 81 mg PO DAILY [facility] Last Admin: 09/23/17 09:28 Dose: Not Given Bisacodyl (Dulcolax) 10 mg SC Q24H PRN PRN Reason: Constipation Calcium Carbonate (Tums) 1,000 mg PO Q4H PRN PRN Reason: Heartburn or Indigestion Clonidine (Catapres) 0.1 mg PO Q4H PRN PRN Reason: Systolic BP > 180 Dextrose/Water (Dextrose 50%) 25 gm SLOW IVP PRN PRN PRN Reason: Hypoglycemia Docusate Sodium (Colace) 100 mg PO BID [facility] Last Admin: 09/23/17 09:28 Dose: Not Given Famotidine (Pepcid) 20 mg PO BID [facility] Last Admin: 09/23/17 09:28 Dose: Not Given Folic Acid (Folvite) 1 mg PO HS [facility] Last Admin: 09/22/17 22:14 Dose: Not Given Glucagon (Glucagon) 1 mg IM PRN PRN PRN Reason: Hypoglycemia Guaifenesin (Robitussin Sf) 200 mg PO Q4H PRN PRN Reason: Cough Hydralazine HCl (Apresoline) 10 mg SLOW IVP Q6H PRN PRN Reason: SBP > 150 Last Admin: 09/23/17 03:57 Dose: 10 mg Dextrose/Water (D5w) 1,000 mls @ 0 mls/hr IV .Q0M PRN; As Directed PRN Reason: Hypoglycemia Potassium Chloride/Dextrose/Sod Cl (D5 0.9% Ns W/ 20 Meq Kcl) 1,000 mls @ 100 mls/hr IV .Q10H [facility] Last Admin: 09/23/17 04:23 Dose: 1,000 mls Labetalol HCl (Normodyne) 10 mg SLOW IVP Q4H PRN PRN Reason: Systolic BP > 180 Loratadine (Claritin) 10 mg PO DAILYPRN PRN PRN Reason: Sinus Symptoms Methylprednisolone Sodium Succinate (Solu-Medrol) 20 mg IVP BID [facility] Metoprolol Tartrate (Lopressor) 12.5 mg PO BID [facility] Last Admin: 09/23/17 05:51 Dose: 12.5 mg Mineral Oil/White Petrolatum (Eucerin Cream) 0 gm TOP BIDPRN PRN PRN Reason: Dry Skin Miscellaneous Medication (Pharmacy To Dose) 0 each IVPB ASDIR PRN PRN Reason: Pharmacy to Dose VANC/ ANTIBIO Morphine Sulfate (Morphine) 2 mg SLOW IVP Q2H PRN PRN Reason: Mild Pain (1-3) Morphine Sulfate (Morphine) 4 mg SLOW IVP Q2H PRN PRN Reason: Moderate Pain (4-6) Last Admin: 09/23/17 09:28 Dose: 4 mg Multivitamins (Theragran) 1 tab PO [facility] Last Admin: 09/22/17 22:15 Dose: Not Given Nitroglycerin (Nitrostat) 0.4 mg PO Q5MIN PRN PRN Reason: Chest Pain Ondansetron HCl (Zofran Odt) 4 mg PO Q6H PRN PRN Reason: Nausea/Vomiting Ondansetron HCl (Zofran) 4 mg IVP Q6H PRN PRN Reason: Nausea Polyethylene Glycol (Miralax) 17 gm PO DAILY PRN PRN Reason: Constipation Senna (Senokot) 2 tab PO HSPRN PRN PRN Reason: Constipation Sodium Chloride (Flush - Normal Saline) 10 ml IVF PRN PRN PRN Reason: Saline Flush Last Admin: 09/23/17 03:58 Dose: 10 ml Thiamine HCl (Thiamine) 100 mg PO HS [facility] Last Admin: 09/22/17 22:15 Dose: Not Given Trospium (Trospium Chloride) 20 mg PO BID [facility] Last Admin: 09/23/17 09:28 Dose: Not Given Ziprasidone (Geodon) 20 mg IM Q8H PRN PRN Reason: HALLUCINATIONS
[2017-09-23] MEDS ORDERED: Fentanyl 100 MCG/2 ML VIAL ONE ×4 (14:03→17:52)
[2017-09-23] MEDS ORDERED: HYDROmorphone 2 MG/ML VIAL SLOW IVP PRN (15:39)
[2017-09-23] MEDS ORDERED: Ondansetron HCl/PF 4 MG/2 ML Vial IVP PRN (15:39)
--- NOTE | 2017-09-23 16:17 | OP ---
DATE OF OPERATION: 09/23/2017 OPERATION: Left hip bipolar hemiarthroplasty. PREOPERATIVE DIAGNOSIS: Left femoral neck fracture. POSTOPERATIVE DIAGNOSIS: Left femoral neck fracture. COMPLICATIONS: None. ESTIMATED BLOOD LOSS: 150 mL SURGEON: Winston Rubi M.D. PACKING AND WRAPPING SUPERVISOR: Dillon Negron PA-C. IMPLANTS: 1. DePuy Foreman femoral stem size 7 basic press fit. 2. A +8.5 x 28 femoral head with a 48 mm bipolar shell from De[employer]uy. INDICATIONS: Mr. Sepulveda is a 72-year-old male who fell. He sustained a fracture of the left femora l neck. He was indicated for hemiarthroplasty of the hip to restore the ability to mobilize and prev ent complications of prolonged bed rest. Risks have been reviewed in detail. He elected to proceed with the operation after medical optimization. DESCRIPTION OF PROCEDURE: Mr. Sepulveda was identified in the preoperative holding area. His correct extremity was marked. He was carried to the operating room. He was positioned supine. General anes thesia was induced. A multidisciplinary timeout was performed. The left lower extremity was prepped and draped in sterile fashion. We began the procedure with a posterior approach to the left hip. We dissected down through the subc utaneous tissues to the fascia, which was incised. We then exposed the short external rotators of th e hip. These were subperiosteally divided from the proximal femur. We then performed a capsulotomy. This exposed the underlying femoral neck. At this point, we removed the broken femoral neck and he ad. We then performed a new osteotomy using the oscillating saw. At this point, we prepared the femoral side for our stem implantation. We entered the intramedullary canal. We then reamed to a size 7. Next, we broach to a size 7. This gave a good fit. We then tr ialed off of this broach. A +8.5 gave good range of motion and stability of the hip with equal leg l ength. We removed our trial components. We then impacted our final femoral stem and bipolar head. We reduced the hip once more and checked stability. At this point, we closed the capsule and short e xternal rotators with a #5 Ethibond suture followed by 2-0 Vicryl and skin closure. A sterile dressi ng was applied. The patient was taken to the recovery room in good condition without complication.
--- NOTE | 2017-09-23 16:54 | RAD ---
SINGLE LATERAL VIEW LEFT HIP: FINDINGS: Single lateral view left hip demonstrates left hip hemiarthroplasty. The femoral porous-type compone nt is in good position. No evidence of fractures or loosening seen in the proximal portion of the le ft femur. Extensive vascular calcification seen in the left common and superficial femoral arteries. POS: [facility]
--- NOTE | 2017-09-23 17:03 | RAD ---
PELVIS ONE VIEW 09/23/17 HISTORY: Fracture. COMPARISON: Pelvis 09/21/17. FINDINGS: Satisfactory appearance of the left hip arthroplasty. Extensive vascular calcifications. IMPRESSION: Satisfactory appearance left hip arthroplasty. POS: [facility]
[2017-09-23] MEDS ORDERED: PHENYLEPHRINE-NS 100 MCG/ML 10 ML SYRINGE ONE (17:23)
[2017-09-23] MEDS ORDERED: Succinylcholine Chloride 20 MG/ML 10 ml SYRINGE FS ONE (17:23)
[2017-09-23] MEDS ORDERED: Dexamethasone 20 MG/5 ML VIAL ONE (17:23)
[2017-09-23] MEDS ORDERED: Glycopyrrolate 0.2 MG/ML 5 ML SYRINGE ONE (17:23)
[2017-09-23] MEDS ORDERED: Lidocaine 1% PF 5 ML VIAL ONE (17:23)
[2017-09-23] MEDS ORDERED: Ondansetron HCl/PF 4 MG/2 ML Vial ONE (17:23)
[2017-09-23] MEDS ORDERED: PROPOFOL 200 MG/20 ML VIAL ONE (17:23)
[2017-09-23] MEDS: CEFAZOLIN/Water 2 GM/20 ML SYRINGE SLOW IVP SCH (22:40)
[2017-09-23] MEDS: Multivit, Therapeutic 1 TAB PO SCH (22:41)
[2017-09-23] MEDS: Folic Acid 1 MG TAB PO SCH (22:41)
[2017-09-24] MEDS: D5 0.9% NS w/ 20 mEq KCl 1,000 ML IV SCH (00:15)
[2017-09-24] MEDS: CEFAZOLIN/Water 2 GM/20 ML SYRINGE SLOW IVP SCH (05:16)
[2017-09-24 05:39] LABS: #Lymphocytes 0.8 thou/uL (1.20-3.40); %Eosinophils 0.2 % (0.0-10.0); %Lymphocytes 6.1 % (21.0-51.0); %Monocytes 7.9 % (0.0-10.0); %Neutrophils 85.8 % (42.0-75.0); Hemoglobin 10.6 g/dL (14.0-18.0); Mean Corpuscular HGB CONC 32.8 g/dL (32.0-36.0); Mean Corpuscular Volume 97.6 fl (80.0-94.0); Mean Platelet Volume 6.4 fL (7.4-10.4); Platelet Count 257 thou/uL (130-400); RBC Distribution Width 11.7 % (11.5-14.5); Red Blood Cell (RBC) Count 3.32 mill/uL (4.70-6.10); White Blood Cell (WBC) Count 12.8 thou/uL (4.8-10.8)
[2017-09-24 06:06] LABS: ALT (SGPT) 19 U/L (8-55); AST (SGOT) 44 U/L (5-34); Alkaline Phosphatase 32 U/L (40-150); Anion Gap 10 mmol/L (10-20); BUN (Urea Nitrogen) 22 mg/dL (8.4-25.7); Bilirubin, Total 0.6 mg/dL (0.2-1.2); Calc. Creatinine Clearance 93 mL/min (70-130); Calcium 8.1 mg/dL (7.8-10.44); Carbon Dioxide 25 mmol/L (23-31); Chloride 105 mmol/L (98-107); Estimated GFR-MDRD Greater than 90; Globulin 2.7 g/dL (2.4-3.5); Glucose 134 mg/dL (83-110); Magnesium 2.3 mg/dL (1.6-2.6); Phosphorus 2.1 mg/dL (2.3-4.7); Potassium 4.1 mmol/L (3.5-5.1); Protein, Total 5.7 g/dL (5.8-8.1); Sodium 136 mmol/L (136-145)
[2017-09-24] MEDS: Acetaminophen 325 MG TAB PO SCH ×5 (07:54→21:35)
[2017-09-24] MEDS ORDERED: Sterile Water 10 ML ONE (08:46)
[2017-09-24] MEDS: Ibuprofen 600 MG TAB PO SCH ×3 (10:04→21:35)
[2017-09-24] MEDS: Famotidine 20 MG TAB PO SCH ×2 (10:05→21:34)
[2017-09-24] MEDS: Aspirin 81 mg Enteric Coated Tablet PO SCH (10:05)
[2017-09-24] MEDS: Metoprolol Tartrate 25 MG TAB PO SCH ×2 (10:05→21:33)
[2017-09-24] MEDS: Senokot S 8.6-50 MG TAB PO SCH ×2 (10:06→21:34)
[2017-09-24] MEDS: Docusate 100 MG CAP PO SCH ×2 (10:06→21:33)
[2017-09-24] MEDS: TROSPIUM 20 MG TABLET PO SCH ×2 (10:06→21:33)
[2017-09-24] MEDS: K-Phos Neutral 250 MG TAB PO SCH ×3 (13:01→21:32)
[2017-09-24] MEDS: Ferrous Sulfate 325 MG TAB PO SCH (18:00)
--- NOTE | 2017-09-24 18:04 | PRG ---
DATE OF SERVICE: 09/24/2017 SUBJECTIVE: The patient is hospital day #4 status post ground level fall in which he presented appro ximately 24 hours after his fall. The patient appeared to be in rhabdomyolysis and also sustained a left hip fracture. The patient has since undergone ORIF of the same. He tolerated this procedure we ll. He did have a short stay on the stroke unit primarily due to his altered mental status from his rhabdomyolysis. The patient postoperatively has moved to the surgical floor. While here, he has beg un working with physical and occupational therapy and yesterday afternoon, it was noted that he was a ble to be out of bed and began actual therapy with them. Overnight, there were no issues. This morn ing, he is tolerating a diet and his pain is controlled. PHYSICAL EXAMINATION: VITAL SIGNS: Temperature is 97.9, heart rate 83, blood pressure 165/75, respirations 18, oxygen satu ration 96% on room air. GENERAL: The patient is resting comfortably in bed. He is awake, conversant and appropriate, and ap pears to be at his baseline. HEENT: Resolving contusions on his face and forehead, otherwise unremarkable. LUNGS: Clear to auscultation bilaterally. HEART: Regular rate and rhythm. ABDOMEN: Soft, flat, nontender with active bowel sounds. EXTREMITIES: Neurovascularly intact x4. LABORATORY DATA AND IMAGING DATA: White blood cell count 12.8, hemoglobin 10.6, hematocrit 32.3, neena telets 257. Sodium 136, potassium 4.1, chloride 105, CO2 25, BUN 22, creatinine 0.71, glucose 134. Magnesium 2.3, phosphorus 2.1. There are no radiographs to review this morning. ASSESSMENT AND PLAN: 1. Status post ground level fall with delayed presentation. 2. Left hip fracture, status post open reduction and internal fixation. 3. Rhabdomyolysis, resolved. Plan will be to continue physical and occupational therapy and discussed placement with case manageme nt. This case was discussed with Dr. Lima this morning during rounds.
[2017-09-24] MEDS: Folic Acid 1 MG TAB PO SCH (21:33)
[2017-09-24] MEDS: Multivit, Therapeutic 1 TAB PO SCH (21:34)
--- NOTE | 2017-09-24 22:33 | PDOC.PN ---
- Subjective Encounter Start Date: 09/24/17 Encounter Start Time: 15:00 Patient seen and examined. No new complaints. No overnight events. Pain controlled. Intermittent confusion per RN. - Objective Resuscitation Status: Resuscitation Status FULL:Full Resuscitation MAR Reviewed: Yes Vital Signs & Weight: Vital Signs (12 hours) Temp Pulse Resp BP Pulse Ox 09/24/17 21:07 97.9 F 80 18 167/80 H 97 09/24/17 16:47 98.3 F 80 16 178/94 H 96 09/24/17 12:00 97.9 F 83 18 127/56 L 92 L Weight Admit Weight 155 lb Weight 152 lb 11.2 oz I&O: 09/23/17 09/24/17 09/25/17 06:59 06:59 06:59 Intake Total 1250 1920 Output Total 1100 875 Balance 150 1045 Result Diagrams: 09/25/17 04:53 09/25/17 04:53 Phys Exam - Physical Examination Constitutional: NAD Respiratory: no wheezing, no rhonchi Cardiovascular: RRR, no rub Gastrointestinal: soft, non-tender, positive bowel sounds Musculoskeletal: no edema Neurological: moves all 4 limbs Dx/Plan - Plan DVT proph w/SCDs IMPRESSION: 1. Toxic Metabolic Encephalopathy - improved 2. Rhabdomyolysis CK improved 3. Coronary artery disease, status post bypass. started on ASA 4. Suspected Sepsis - cultures negative - Antibiotic dced 5. Chronic hyponatremia 6. Abnormal liver function tests, probably secondary to alcoholic hepatitis. 7. Chronic pain syndrome on gabapentin. 8. Depression, on Cymbalta. 9. Hypertension 10. History of degenerative joint disease on chronic steroids 11. Chronic alcoholism with a history of delirium tremens in the past. 12. History of multiple falls. 13. Elevated troponins, probably secondary to demand ischemia. 14. Paroxysmal atrial fibrillation in the past, not an anticoagulation candidate due to recurrent falls/Left femoral neck fracture, management per trauma team/Hypomagnesemia/Metabolic acidosis/lactic acidosis/Dehydration/ Parkinson disease/Sinus tachycardia, probably secondary to dehydration/Physical deconditioning. PLAN: * Transfer to surgical after surgery * Cymbalta/Gabapentin on hold * Change Steroids to PO in AM * Cont other meds as below * AM labs Review of Systems - Review of Systems Respiratory: negative: Cough, Dry, Shortness of Breath, Hemoptysis, SOB with Excertion, Pleuritic Pain, Sputum, Wheezing Cardiovascular: negative: chest pain, palpitations, orthopnea, paroxysmal nocturnal dyspnea, edema, light headedness - Medications/Allergies Allergies/Adverse Reactions: Allergies Allergy/AdvReac Type Severity Reaction Status Date / Time tramadol Allergy Verified 05/02/14 08:59 Medications: Current Medications Acetaminophen (Tylenol) 650 mg PO Q4H PRN PRN Reason: Headache/Fever or Pain Last Admin: 09/22/17 22:54 Dose: 650 mg Acetaminophen (Tylenol) 650 mg OR Q4H PRN PRN Reason: Headache/Fever or Pain Acetaminophen (Tylenol) 650 mg PO Q4H [facility] Last Admin: 09/24/17 21:35 Dose: Not Given Albuterol/Ipratropium (Duoneb) 3 ml NEB Q4H PRN PRN Reason: Wheezing Aspirin (Ecotrin) 81 mg PO DAILY [facility] Last Admin: 09/24/17 10:05 Dose: 81 mg Bisacodyl (Dulcolax) 10 mg OR Q24H PRN PRN Reason: Constipation Calcium Carbonate (Tums) 1,000 mg PO Q4H PRN PRN Reason: Heartburn or Indigestion Clonidine (Catapres) 0.1 mg PO Q4H PRN PRN Reason: Systolic BP > 180 Dextrose/Water (Dextrose 50%) 25 gm SLOW IVP PRN PRN PRN Reason: Hypoglycemia Docusate Sodium (Colace) 100 mg PO BID [facility] Last Admin: 09/24/17 21:33 Dose: 100 mg Famotidine (Pepcid) 20 mg PO BID [facility] Last Admin: 09/24/17 21:34 Dose: 20 mg Ferrous Sulfate (Feosol) 325 mg PO BID-[facility] Last Admin: 09/24/17 18:00 Dose: 325 mg Folic Acid (Folvite) 1 mg PO HS [facility] Last Admin: 09/24/17 21:33 Dose: 1 mg Glucagon (Glucagon) 1 mg IM PRN PRN PRN Reason: Hypoglycemia Guaifenesin (Robitussin Sf) 200 mg PO Q4H PRN PRN Reason: Cough Hydralazine HCl (Apresoline) 10 mg SLOW IVP Q6H PRN PRN Reason: SBP > 150 Last Admin: 09/23/17 03:57 Dose: 10 mg Dextrose/Water (D5w) 1,000 mls @ 0 mls/hr IV .Q0M PRN; As Directed PRN Reason: Hypoglycemia Ibuprofen (Motrin) 600 mg PO Q8H [facility] Last Admin: 09/24/17 21:35 Dose: Not Given Labetalol HCl (Normodyne) 10 mg SLOW IVP Q4H PRN PRN Reason: Systolic BP > 180 Loratadine (Claritin) 10 mg PO DAILYPRN PRN PRN Reason: Sinus Symptoms Metoprolol Tartrate (Lopressor) 25 mg PO BID [facility] Mineral Oil/White Petrolatum (Eucerin Cream) 0 gm TOP BIDPRN PRN PRN Reason: Dry Skin Miscellaneous Medication (Pharmacy To Dose) 0 each IVPB ASDIR PRN PRN Reason: Pharmacy to Dose VANC/ ANTIBIO Morphine Sulfate (Morphine) 2 mg SLOW IVP Q2H PRN PRN Reason: Mild Pain (1-3) Multivitamins (Theragran) 1 tab PO [facility] Last Admin: 09/24/17 21:34 Dose: 1 tab Nitroglycerin (Nitrostat) 0.4 mg PO Q5MIN PRN PRN Reason: Chest Pain Ondansetron HCl (Zofran Odt) 4 mg PO Q6H PRN PRN Reason: Nausea/Vomiting Ondansetron HCl (Zofran) 4 mg IVP Q6H PRN PRN Reason: Nausea Phosphorus (Kphos Neutral) 500 mg PO QID-[facility] Last Admin: 09/24/17 21:32 Dose: 500 mg Polyethylene Glycol (Miralax) 17 gm PO DAILY PRN PRN Reason: Constipation Prednisone (Prednisone) 20 mg PO QAM-[facility] Senna (Senokot) 2 tab PO HSPRN PRN PRN Reason: Constipation Senna/Docusate Sodium (Senokot S) 1 tab PO BID [facility] Last Admin: 09/24/17 21:34 Dose: 1 tab Sodium Chloride (Flush - Normal Saline) 10 ml IVF PRN PRN PRN Reason: Saline Flush Last Admin: 09/24/17 21:32 Dose: 10 ml Thiamine HCl (Thiamine) 100 mg PO [facility] Last Admin: 09/24/17 21:34 Dose: 100 mg Trospium (Trospium Chloride) 20 mg PO BID [facility] Last Admin: 09/24/17 21:33 Dose: 20 mg Ziprasidone (Geodon) 20 mg IM Q8H PRN PRN Reason: HALLUCINATIONS
[2017-09-25] MEDS: Acetaminophen 325 MG TAB PO SCH ×2 (02:54→06:42)
[2017-09-25] MEDS: hydrALAZINE 20 MG/ML VIAL SLOW IVP PRN ×2 (02:59→20:23)
[2017-09-25 05:28] LABS: #Lymphocytes 1.2 thou/uL (1.20-3.40); #Monocytes 1.4 thou/uL (0.11-0.59); #Neutrophils 10.8 thou/uL (1.40-6.50); %Basophils 0.1 % (0.0-1.0); %Eosinophils 0.2 % (0.0-10.0); %Lymphocytes 8.9 % (21.0-51.0); %Monocytes 10.1 % (0.0-10.0); %Neutrophils 80.8 % (42.0-75.0); Hemoglobin 10.2 g/dL (14.0-18.0); Mean Corpuscular HGB CONC 33.9 g/dL (32.0-36.0); Mean Corpuscular Hemoglobin 32.9 pg (27.0-31.0); Mean Corpuscular Volume 97.1 fl (80.0-94.0); Mean Platelet Volume 7.1 fL (7.4-10.4); Platelet Count 255 thou/uL (130-400); RBC Distribution Width 11.7 % (11.5-14.5); Red Blood Cell (RBC) Count 3.09 mill/uL (4.70-6.10); White Blood Cell (WBC) Count 13.4 thou/uL (4.8-10.8)
[2017-09-25 05:49] LABS: ALT (SGPT) 29 U/L (8-55); AST (SGOT) 49 U/L (5-34); Albumin 3.2 g/dL (3.4-4.8); Alkaline Phosphatase 39 U/L (40-150); Anion Gap 12 mmol/L (10-20); BUN (Urea Nitrogen) 22 mg/dL (8.4-25.7); Bilirubin, Total 0.7 mg/dL (0.2-1.2); Calc. Creatinine Clearance 102 mL/min (70-130); Calcium 8.4 mg/dL (7.8-10.44); Carbon Dioxide 24 mmol/L (23-31); Chloride 103 mmol/L (98-107); Estimated GFR-MDRD Greater than 90; Globulin 2.7 g/dL (2.4-3.5); Glucose 105 mg/dL (83-110); Phosphorus 3.5 mg/dL (2.3-4.7); Potassium 3.7 mmol/L (3.5-5.1); Protein, Total 5.9 g/dL (5.8-8.1); Sodium 135 mmol/L (136-145)
[2017-09-25] MEDS: Ibuprofen 600 MG TAB PO SCH (06:41)
[2017-09-25] MEDS ORDERED: Tamsulosin HCl 0.4 MG CAP PO SCH (07:15)
[2017-09-25] MEDS: predniSONE 20 MG TAB PO SCH (09:12)
[2017-09-25] MEDS: Senokot S 8.6-50 MG TAB PO SCH ×2 (09:12→20:09)
[2017-09-25] MEDS: Metoprolol Tartrate 25 MG TAB PO SCH ×2 (09:12→20:09)
[2017-09-25] MEDS: Famotidine 20 MG TAB PO SCH ×2 (09:12→20:08)
[2017-09-25] MEDS: Aspirin 81 mg Enteric Coated Tablet PO SCH (09:12)
[2017-09-25] MEDS: Ferrous Sulfate 325 MG TAB PO SCH ×2 (09:12→17:13)
[2017-09-25] MEDS: Docusate 100 MG CAP PO SCH ×2 (09:12→20:08)
[2017-09-25] MEDS: K-Phos Neutral 250 MG TAB PO SCH ×4 (09:13→20:08)
[2017-09-25] MEDS: Ibuprofen 600 MG TAB PO PRN ×2 (09:18→20:23)
[2017-09-25] MEDS: TROSPIUM 20 MG TABLET PO SCH (09:25)
--- NOTE | 2017-09-25 09:59 | PRG ---
DATE OF SERVICE: 09/25/2017 SUBJECTIVE: The patient is hospital day #5 status post ground level fall. When he presented approxi mately 24 hours after his fall, the patient had rhabdomyolysis upon presentation in addition to his l eft hip fracture. His rhabdomyolysis has subsequently resolved and he has undergone ORIF of his hip fracture. The patient is currently awaiting placement. The patient has been working with physical a nd occupational therapy and making slow progress which was his advanced age and Parkinson's and this is to be expected. The patient is ready to go to a skilled facility whenever placement is available. Overnight, there have been no issues. This morning, the patient states his pain is controlled. He has been refusing his pain medications during evening and he is tolerating a diet. PHYSICAL EXAMINATION: VITAL SIGNS: Temperature is 97.9, heart rate 92, blood pressure 154/74, respirations 20, and oxygen saturation 96% on room air. HEENT: Head, resolving contusions on the face. Otherwise, unremarkable. LUNGS: Clear to auscultation with good inspiratory and expiratory effort. HEART: Regular rate and rhythm. ABDOMEN: Soft, flat, and nontender with active bowel sounds. EXTREMITIES: Neurovascularly intact x4. Postop dressing is clean, dry, and intact. LABORATORY DATA AND IMAGING DATA: White blood cell count 13.4, hemoglobin 10.0, hematocrit 30, plate lets 255. Sodium 135, potassium 3.7, chloride 102, CO2 24, BUN 22, creatinine 0.65, glucose 105, mag nesium 2.0, and phosphorus 3.5. There are no radiographs to review this morning. ASSESSMENT AND PLAN: 1. Status post ground level fall with delayed presentation. 2. Rhabdomyolysis, resolved. 3. Left hip fracture, status post open reduction and internal fixation of the same. Plan will be to continue supportive care, physical and occupational therapy and await placement.
[2017-09-25] MEDS: Multivit, Therapeutic 1 TAB PO SCH (20:08)
[2017-09-25] MEDS: Tamsulosin HCl 0.4 MG CAP PO SCH (20:08)
[2017-09-25] MEDS: Folic Acid 1 MG TAB PO SCH (20:09)
--- NOTE | 2017-09-25 20:17 | PDOC.PN ---
- Subjective Encounter Start Date: 09/25/17 Encounter Start Time: 14:00 Patient seen and examined. No new complaints. No overnight events - Objective Resuscitation Status: Resuscitation Status FULL:Full Resuscitation MAR Reviewed: Yes Vital Signs & Weight: Vital Signs (12 hours) Temp Pulse Resp BP Pulse Ox 09/25/17 15:25 98.5 F 94 20 147/81 H 96 09/25/17 11:45 98.5 F 85 20 102/61 95 09/25/17 10:00 98 Weight Admit Weight 155 lb Weight 152 lb 11.2 oz I&O: 09/24/17 09/25/17 09/26/17 06:59 06:59 06:59 Intake Total 1920 1680 Output Total 875 1700 Balance 1045 -20 Result Diagrams: 09/26/17 10:41 09/26/17 10:41 Additional Labs: Accuchecks 09/25/17 09/25/17 15:57 11:42 POC Glucose 116 H 94 EKG Reviewed by me: Yes Phys Exam - Physical Examination Constitutional: NAD Respiratory: no wheezing, no rhonchi Cardiovascular: RRR, no rub Gastrointestinal: soft, non-tender, positive bowel sounds Musculoskeletal: no edema Neurological: moves all 4 limbs Psychiatric: A&O x 3 Dx/Plan - Plan PT/OT, incentive spirometry, DVT proph w/SCDs IMPRESSION: 1. Coronary artery disease, status post bypass. on ASA 2. Chronic hyponatremia 3. Abnormal liver function tests, probably secondary to alcoholic hepatitis. 4. Chronic pain syndrome on gabapentin. 5. Depression, on Cymbalta. 6. Hypertension 7. History of degenerative joint disease on chronic steroids 8. Chronic alcoholism with a history of delirium tremens in the past. 9. History of multiple falls. 10. Elevated troponins, probably secondary to demand ischemia. 11. Toxic Metabolic Encephalopathy/Rhabdomyolysis - resolved 14. Paroxysmal atrial fibrillation in the past, not an anticoagulation candidate due to recurrent falls/Left femoral neck fracture, management per trauma team/Hypomagnesemia/Metabolic acidosis/lactic acidosis/Dehydration/ Parkinson disease/Sinus tachycardia, probably secondary to dehydration/Physical deconditioning. PLAN: * Start low dose Cymbalta * Cont current meds as below * Cont therapy * DC to SNF when accepted. * Will follow PRN Review of Systems - Review of Systems Respiratory: negative: Cough, Dry, Shortness of Breath, Hemoptysis, SOB with Excertion, Pleuritic Pain, Sputum, Wheezing Cardiovascular: negative: chest pain, palpitations, orthopnea, paroxysmal nocturnal dyspnea, edema, light headedness - Medications/Allergies Allergies/Adverse Reactions: Allergies Allergy/AdvReac Type Severity Reaction Status Date / Time tramadol Allergy Verified 05/02/14 08:59 Medications: Current Medications Acetaminophen (Tylenol) 650 mg [place] Q4H PRN PRN Reason: Headache/Fever or Pain Albuterol/Ipratropium (Duoneb) 3 ml NEB Q4H PRN PRN Reason: Wheezing Aspirin (Ecotrin) 81 mg PO DAILY [facility] Last Admin: 09/25/17 09:12 Dose: 81 mg Bisacodyl (Dulcolax) 10 mg [place] Q24H PRN PRN Reason: Constipation Calcium Carbonate (Tums) 1,000 mg PO Q4H PRN PRN Reason: Heartburn or Indigestion Clonidine (Catapres) 0.1 mg PO Q4H PRN PRN Reason: Systolic BP > 180 Dextrose/Water (Dextrose 50%) 25 gm SLOW IVP PRN PRN PRN Reason: Hypoglycemia Docusate Sodium (Colace) 100 mg PO BID [facility] Last Admin: 09/25/17 20:08 Dose: 100 mg Duloxetine HCl (Cymbalta) 20 mg PO DAILY [facility] Famotidine (Pepcid) 20 mg PO BID [facility] Last Admin: 09/25/17 20:08 Dose: 20 mg Ferrous Sulfate (Feosol) 325 mg PO BID-[facility] Last Admin: 09/25/17 17:13 Dose: 325 mg Folic Acid (Folvite) 1 mg PO [facility] Last Admin: 09/25/17 20:09 Dose: 1 mg Glucagon (Glucagon) 1 mg IM PRN PRN PRN Reason: Hypoglycemia Guaifenesin (Robitussin Sf) 200 mg PO Q4H PRN PRN Reason: Cough Hydralazine HCl (Apresoline) 10 mg SLOW IVP Q6H PRN PRN Reason: SBP > 150 Last Admin: 09/25/17 02:59 Dose: 10 mg Dextrose/Water (D5w) 1,000 mls @ 0 mls/hr IV .Q0M PRN; As Directed PRN Reason: Hypoglycemia Ibuprofen (Motrin) 600 mg PO Q8H PRN PRN Reason: pain Last Admin: 09/25/17 09:18 Dose: 600 mg Labetalol HCl (Normodyne) 10 mg SLOW IVP Q4H PRN PRN Reason: Systolic BP > 180 Loratadine (Claritin) 10 mg PO DAILYPRN PRN PRN Reason: Sinus Symptoms Metoprolol Tartrate (Lopressor) 25 mg PO BID [facility] Last Admin: 09/25/17 20:09 Dose: 25 mg Mineral Oil/White Petrolatum (Eucerin Cream) 0 gm TOP BIDPRN PRN PRN Reason: Dry Skin Miscellaneous Medication (Pharmacy To Dose) 0 each IVPB ASDIR PRN PRN Reason: Pharmacy to Dose VANC/ ANTIBIO Morphine Sulfate (Morphine) 2 mg SLOW IVP Q2H PRN PRN Reason: Mild Pain (1-3) Multivitamins (Theragran) 1 tab PO [facility] Last Admin: 09/25/17 20:08 Dose: 1 tab Nitroglycerin (Nitrostat) 0.4 mg PO Q5MIN PRN PRN Reason: Chest Pain Ondansetron HCl (Zofran Odt) 4 mg PO Q6H PRN PRN Reason: Nausea/Vomiting Last Admin: 09/25/17 20:09 Dose: 4 mg Ondansetron HCl (Zofran) 4 mg IVP Q6H PRN PRN Reason: Nausea Phosphorus (Kphos Neutral) 500 mg PO QID-[facility] Last Admin: 09/25/17 20:08 Dose: 500 mg Polyethylene Glycol (Miralax) 17 gm PO DAILY PRN PRN Reason: Constipation Prednisone (Prednisone) 20 mg PO QAM-[facility] Last Admin: 09/25/17 09:12 Dose: 20 mg Senna (Senokot) 2 tab PO HSPRN PRN PRN Reason: Constipation Senna/Docusate Sodium (Senokot S) 1 tab PO BID [facility] Last Admin: 09/25/17 20:09 Dose: 1 tab Sodium Chloride (Flush - Normal Saline) 10 ml IVF PRN PRN PRN Reason: Saline Flush Last Admin: 09/24/17 21:32 Dose: 10 ml Tamsulosin HCl (Flomax) 0.4 mg PO [facility] Last Admin: 09/25/17 20:08 Dose: 0.4 mg Thiamine HCl (Thiamine) 100 mg PO HS [facility] Last Admin: 09/25/17 20:08 Dose: 100 mg Ziprasidone (Geodon) 20 mg IM Q8H PRN PRN Reason: HALLUCINATIONS
[2017-09-26] MEDS ORDERED: Acetaminophen 325 MG TAB PO PRN (07:39)
[2017-09-26] MEDS: Ibuprofen 600 MG TAB PO PRN (08:56)
[2017-09-26] MEDS: Famotidine 20 MG TAB PO SCH ×2 (08:58→22:15)
[2017-09-26] MEDS: Senokot S 8.6-50 MG TAB PO SCH ×2 (08:58→21:24)
[2017-09-26] MEDS: Aspirin 81 mg Enteric Coated Tablet PO SCH (08:59)
[2017-09-26] MEDS: K-Phos Neutral 250 MG TAB PO SCH ×4 (08:59→22:16)
[2017-09-26] MEDS: Ferrous Sulfate 325 MG TAB PO SCH ×2 (08:59→17:32)
[2017-09-26] MEDS: Docusate 100 MG CAP PO SCH ×2 (08:59→21:22)
[2017-09-26] MEDS: predniSONE 20 MG TAB PO SCH (08:59)
[2017-09-26] MEDS: Metoprolol Tartrate 25 MG TAB PO SCH ×2 (08:59→22:16)
[2017-09-26 10:50] LABS: #Eosinphils 0.3 thou/uL (0.0-0.7); #Lymphocytes 1.4 thou/uL (1.20-3.40); #Monocytes 1.1 thou/uL (0.11-0.59); #Neutrophils 13.5 thou/uL (1.40-6.50); %Basophils 0.3 % (0.0-1.0); %Eosinophils 1.6 % (0.0-10.0); %Lymphocytes 8.5 % (21.0-51.0); %Monocytes 6.9 % (0.0-10.0); %Neutrophils 82.7 % (42.0-75.0); Hemoglobin 9.8 g/dL (14.0-18.0); Mean Corpuscular Hemoglobin 32.6 pg (27.0-31.0); Mean Corpuscular Volume 98.7 fl (80.0-94.0); Mean Platelet Volume 5.9 fL (7.4-10.4); Platelet Count 258 thou/uL (130-400); RBC Distribution Width 11.7 % (11.5-14.5); White Blood Cell (WBC) Count 16.3 thou/uL (4.8-10.8)
--- NOTE | 2017-09-26 11:02 | PRG ---
DATE OF SERVICE: 09/26/2017 SUBJECTIVE: The patient is hospital day #6 status post ground level fall in which he fell approximat rachel 24 hours prior. He presented to emergency department with rhabdomyolysis and a left hip fracture . The patient has resolved his rhabdomyolysis and has undergone surgical repair of his hip fracture. The patient has been working with physical and occupational therapy, was tolerating a diet. His vishal wel function has returned and his pain is controlled. The patient this morning appears a little bit more drowsy than previous mornings, but will open his eyes and answer questions appropriately. PHYSICAL EXAMINATION: VITAL SIGNS: Temperature is 97.9, heart rate 85, blood pressure 161/62, respirations 20, oxygen satu ration 94% on room air. GENERAL: The patient is resting comfortably in bed, he will open his eyes to verbal stimuli and answ er simple questions, states that he ate breakfast and denies any pain. HEENT: Unremarkable. LUNGS: Clear to auscultation bilaterally. HEART: Regular rate and rhythm. ABDOMEN: Soft, flat, nontender with active bowel sounds. EXTREMITIES: Neurovascularly intact x4. Dressing is clean, dry, and intact. LABORATORY: Labs this morning are pending. ASSESSMENT AND ASSESSMENT: 1. Status post ground level fall with delayed presentation. 2. Left hip fracture, status post open reduction internal fixations of the same. PLAN: The plan will be to continue supportive care. We will check his labs this morning to include a BNP. The patient is slightly ahead on his ins and outs. This case was discussed and evaluated with Dr. Velez during rounds this morning.
[2017-09-26 11:09] LABS: Anion Gap 12 mmol/L (10-20); BUN (Urea Nitrogen) 21 mg/dL (8.4-25.7); Calc. Creatinine Clearance 99 mL/min (70-130); Calcium 7.9 mg/dL (7.8-10.44); Carbon Dioxide 24 mmol/L (23-31); Chloride 100 mmol/L (98-107); Estimated GFR-MDRD Greater than 90; Glucose 101 mg/dL (83-110); Magnesium 1.8 mg/dL (1.6-2.6); Phosphorus 4.5 mg/dL (2.3-4.7); Potassium 3.4 mmol/L (3.5-5.1); Sodium 133 mmol/L (136-145)
[2017-09-26] MEDS ORDERED: Enoxaparin Sodium 40 MG/0.4 ML SYRINGE SC SCH (12:45)
[2017-09-26] MEDS ORDERED: Magnesium Sulfate 2 GM in Sodium Chloride 0.9% 250 ML 250 ML IVPB SCH (21:30)
[2017-09-26] MEDS ORDERED: Magnesium 2 GM/NS 0.9% 50 ML 2 GM in Premix Bag 1 BAG IVPB SCH (22:00)
[2017-09-26] MEDS: Multivit, Therapeutic 1 TAB PO SCH (22:15)
[2017-09-26] MEDS: Tamsulosin HCl 0.4 MG CAP PO SCH (22:16)
[2017-09-26] MEDS: Folic Acid 1 MG TAB PO SCH (22:31)
[2017-09-27] MEDS: Ferrous Sulfate 325 MG TAB PO SCH ×2 (09:07→17:44)
[2017-09-27] MEDS: Famotidine 20 MG TAB PO SCH ×2 (09:07→20:51)
[2017-09-27] MEDS: Metoprolol Tartrate 25 MG TAB PO SCH ×2 (09:07→20:51)
[2017-09-27] MEDS: predniSONE 20 MG TAB PO SCH (09:07)
[2017-09-27] MEDS: Docusate 100 MG CAP PO SCH ×2 (09:08→20:52)
[2017-09-27] MEDS: Enoxaparin Sodium 40 MG/0.4 ML SYRINGE SC SCH ×2 (09:08→12:30)
[2017-09-27] MEDS: Senokot S 8.6-50 MG TAB PO SCH ×2 (09:08→20:52)
[2017-09-27] MEDS: Aspirin 81 mg Enteric Coated Tablet PO SCH (09:09)
[2017-09-27] MEDS: K-Phos Neutral 250 MG TAB PO SCH ×4 (09:17→20:51)
[2017-09-27 09:34] LABS: #Basophils 0.1 thou/uL (0.0-0.2); #Eosinphils 0.4 thou/uL (0.0-0.7); #Lymphocytes 2.1 thou/uL (1.20-3.40); #Monocytes 0.9 thou/uL (0.11-0.59); #Neutrophils 8.6 thou/uL (1.40-6.50); %Basophils 1.2 % (0.0-1.0); %Eosinophils 3.6 % (0.0-10.0); %Lymphocytes 17.1 % (21.0-51.0); %Monocytes 7.3 % (0.0-10.0); %Neutrophils 70.8 % (42.0-75.0); Hemoglobin 9.7 g/dL (14.0-18.0); Mean Corpuscular HGB CONC 33.6 g/dL (32.0-36.0); Mean Corpuscular Hemoglobin 32.8 pg (27.0-31.0); Mean Corpuscular Volume 97.5 fl (80.0-94.0); Mean Platelet Volume 6.2 fL (7.4-10.4); Platelet Count 289 thou/uL (130-400); RBC Distribution Width 11.7 % (11.5-14.5); Red Blood Cell (RBC) Count 2.95 mill/uL (4.70-6.10); White Blood Cell (WBC) Count 12.2 thou/uL (4.8-10.8)
[2017-09-27 09:47] LABS: Anion Gap 11 mmol/L (10-20); BUN (Urea Nitrogen) 17 mg/dL (8.4-25.7); Calc. Creatinine Clearance 109 mL/min (70-130); Calcium 7.9 mg/dL (7.8-10.44); Carbon Dioxide 27 mmol/L (23-31); Chloride 102 mmol/L (98-107); Estimated GFR-MDRD Greater than 90; Glucose 79 mg/dL (83-110); Magnesium 2.1 mg/dL (1.6-2.6); Phosphorus 3.6 mg/dL (2.3-4.7); Potassium 3.2 mmol/L (3.5-5.1); Sodium 137 mmol/L (136-145)
--- NOTE | 2017-09-27 16:48 | PRG ---
DATE OF SERVICE: 09/27/2017 ATTENDING PHYSICIAN: Romaine Velez, DO This is Carine Tompkins, nurse practitioner dictating daily progress note for Dr. Romaine Velez. SUBJECTIVE: A 72-year-old male postop day 4 status post left hip hemiarthroplasty. He has been mobilizing with physical and occupational therapy. He reports very poor appetite and minimal p.o. intake. OBJECTIVE: VITAL SIGNS: Temperature 98.3, pulse 77, respirations 14, O2 sat 95% on room air, blood pressure 150/71. GENERAL: Elderly male lying in bed in no acute distress. Appropriately interactive. HEENT: Atraumatic, normocephalic. PULMONARY: No respiratory distress. Respirations even, unlabored. CARDIOVASCULAR: Regular rate and rhythm. ABDOMEN: Soft, nontender, nondistended. EXTREMITIES: Cap refill brisk. Neurovascularly intact. Moves all extremities. NEUROLOGIC: GCS of 15. Awake, alert, oriented x3. ASSESSMENT: 1. Status post ground-level fall. 2. Left hip fracture. 3. Status post open reduction internal fixation. 4. Rhabdomyolysis, resolved. PLAN: 1. Continue mobilizing with PT, OT. 2. Megace for appetite stimulation. 3. Add Ensure for protein supplementation. 4. Case management referral for discharge planning to detention facility. 5. Hospital medicine following p.r.n. at this point. Patient is seen and examined with Dr. Velez, attending trauma surgeon, who agrees with the assessment and plan. ROMA
[2017-09-27] MEDS: Multivit, Therapeutic 1 TAB PO SCH (20:51)
[2017-09-27] MEDS: Tamsulosin HCl 0.4 MG CAP PO SCH (20:51)
[2017-09-27] MEDS: Folic Acid 1 MG TAB PO SCH (20:51)
[2017-09-27] MEDS: Megestrol Acetate 40 MG TAB PO SCH (20:51)
[2017-09-28] MEDS: K-Phos Neutral 250 MG TAB PO SCH ×2 (08:58→12:41)
[2017-09-28] MEDS: Enoxaparin Sodium 40 MG/0.4 ML SYRINGE SC SCH (08:58)
[2017-09-28] MEDS: Megestrol Acetate 40 MG TAB PO SCH (08:58)
[2017-09-28] MEDS: predniSONE 20 MG TAB PO SCH (08:59)
[2017-09-28] MEDS: Famotidine 20 MG TAB PO SCH (08:59)
[2017-09-28] MEDS: Metoprolol Tartrate 25 MG TAB PO SCH (08:59)
[2017-09-28] MEDS: Ferrous Sulfate 325 MG TAB PO SCH (08:59)
[2017-09-28] MEDS: Aspirin 81 mg Enteric Coated Tablet PO SCH (08:59)
[2017-09-28] MEDS: Senokot S 8.6-50 MG TAB PO SCH (09:24)
[2017-09-28] MEDS: Docusate 100 MG CAP PO SCH (09:24)
[2017-09-28 12:28] VITALS: TEMP 97.5
[2017-09-28 12:42] VITALS: BP 120/74
--- NOTE | 2017-09-29 14:09 | DIS ---
DATE OF ADMISSION: 09/21/2017 DATE OF DISCHARGE: 09/28/2017 ADMITTING PHYSICIAN: Dr. Yates. CONSULTING PHYSICIAN: Dr. [facility] REASON FOR HOSPITALIZATION: Ground level fall with left hip pain. HOSPITAL DIAGNOSES: 1. Left hip fracture. 2. Rhabdomyolysis. PROCEDURE: Left hip bipolar hemiarthroplasty. DATE OF OPERATION: 09/23/2017 SURGEON: Dr. Winston Rubi DISCHARGE CONDITION: Good, to prison facility. FOLLOWUP: Dr. Winston Rubi, 10 days. PCP on discharge from prison facility. BRIEF HISTORY OF HOSPITALIZATION: A 72-year-old male who had a ground level fall. He was found down on the floor by family members and had been unable to get up for at least 24 hours. He was transported to [facility]. He was found to have a left hip fracture and rhabdomyolysis with a CK level of 1641. He was admitted to the hospital by Trauma services. He was started on IV fluids to correct his rhabdomyolysis. He was taken to the operating room by Dr. Winston Rubi for fixation of fracture. Hospital medicine physician was consulted for medical management. He did not have any postoperative complications. He mobilized with PT, OT. Case management was consulted for discharge planning. He was accepted to a prison facility and was discharged on 09/28/2017. He was given followup information and strict return precautions. The patient was seen and examined with Dr. Velez, attending trauma surgeon, who agrees with the assessment and plan for discharge. ROMA
--- NOTE | 2017-10-21 14:08 | EKG ---
Test Reason : Blood Pressure : / mmHG Vent. Rate : 110 BPM Atrial Rate : 110 BPM P-R Int : 192 ms QRS Dur : 084 ms QT Int : 326 ms P-R-T Axes : 042 028 045 degrees QTc Int : 441 ms Sinus tachycardia with Premature atrial complexes Possible Left atrial enlargement Borderline ECG Confirmed by MARYANN CEDILLO, JAG ([id number]), scientific publications editor ANABELL PRITCHARD ([id number]) on 10/21/2017 2:07:23 PM Referred By: Confirmed By:JAG WOLF MD
== END 2017-09-28 14:30 | DRG 469 ==
LOC: ERS 11:26 → SURG B 15:00 → 2SE 09-22 13:09 → SURG A 09-23 12:30
PROVIDERS: ADMIT Surgery; ATTEND Surgery
PROC: 0SRS01A Replacement of Left Hip Joint, Femoral Surface with Metal Synthetic Substitute, Uncemented, Open Approach (ICD-10-PCS; principal; 2017-09-23)
DX: S72.002A Fracture of unspecified part of neck of left femur, initial encounter for closed fracture (principal); G92 Toxic encephalopathy; E87.2 Acidosis; E87.1 Hypo-osmolality and hyponatremia; E83.42 Hypomagnesemia; M62.82 Rhabdomyolysis; G20 Parkinson's disease; W18.30XA Fall on same level, unspecified, initial encounter; I10 Essential (primary) hypertension; I25.10 Atherosclerotic heart disease of native coronary artery without angina pectoris; Z95.1 Presence of aortocoronary bypass graft; Z87.891 Personal history of nicotine dependence; S01.111A Laceration without foreign body of right eyelid and periocular area, initial encounter; S00.12XA Contusion of left eyelid and periocular area, initial encounter; G89.11 Acute pain due to trauma; E78.5 Hyperlipidemia, unspecified; F10.20 Alcohol dependence, uncomplicated; Z91.81 History of falling; Z79.52 Long term (current) use of systemic steroids; M19.90 Unspecified osteoarthritis, unspecified site; E86.0 Dehydration; F32.9 Major depressive disorder, single episode, unspecified; G89.4 Chronic pain syndrome; S50.12XA Contusion of left forearm, initial encounter; S50.11XA Contusion of right forearm, initial encounter; S41.011A Laceration without foreign body of right shoulder, initial encounter
CPT/HCPCS: 36415; 36416; 51702; 70450; 70486; 71010; 71260; 72125; 72170; 74177; 80048; 80053; 81003; 81015; 82550; 82553; 83605; 83735; 83880; 83930; 84100; 84443; 84484; 85025; 85610; 85730; 87040; 87086; 93005; 94760; 96361; 96374; A4216; G0390; G8978-GP-CM; G8979-GP-CK; G8987-GO-CM; G8988-GO-CL; G8996-GN-CI; G8996-GN-CN; G8997-GN-CI; J0131; J0360; J1100; J1650; J1885; J2001; J2270; J2405; J2704; J2920; J3010; J3370; J3475; J7042; J7506; Q0162; S0179

== ENCOUNTER 2017-11-13 17:07 | Inpatient (IN) | payer MEDICARE, MEDICAID ==
[2017-11-13 17:52] LABS: #Basophils 0.2 thou/uL (0.0-0.2); #Eosinphils 0.2 thou/uL (0.0-0.7); #Lymphocytes 3.2 thou/uL (1.20-3.40); #Monocytes 0.9 thou/uL (0.11-0.59); #Neutrophils 6.7 thou/uL (1.40-6.50); %Basophils 1.4 % (0.0-1.0); %Eosinophils 1.8 % (0.0-10.0); %Lymphocytes 28.9 % (21.0-51.0); %Monocytes 8.2 % (0.0-10.0); %Neutrophils 59.8 % (42.0-75.0); Hemoglobin 11.5 g/dL (14.0-18.0); Mean Corpuscular HGB CONC 33.2 g/dL (32.0-36.0); Mean Corpuscular Hemoglobin 30.8 pg (27.0-31.0); Mean Corpuscular Volume 92.9 fl (80.0-94.0); Mean Platelet Volume 6.5 fL (7.4-10.4); Platelet Count 371 thou/uL (130-400); RBC Distribution Width 12.7 % (11.5-14.5); Red Blood Cell (RBC) Count 3.75 mill/uL (4.70-6.10); White Blood Cell (WBC) Count 11.1 thou/uL (4.8-10.8)
[2017-11-13 18:06] LABS: ALT (SGPT) 10 U/L (8-55); AST (SGOT) 19 U/L (5-34); Albumin 4.5 g/dL (3.4-4.8); Alkaline Phosphatase 90 U/L (40-150); Anion Gap 15 mmol/L (10-20); BUN (Urea Nitrogen) 15 mg/dL (8.4-25.7); Bilirubin, Total 0.7 mg/dL (0.2-1.2); Calc. Creatinine Clearance 0 mL/min (70-130); Carbon Dioxide 28 mmol/L (23-31); Chloride 99 mmol/L (98-107); Estimated GFR-MDRD 81; Globulin 4.2 g/dL (2.4-3.5); Glucose 84 mg/dL (83-110); Potassium 3.8 mmol/L (3.5-5.1); Protein, Total 8.7 g/dL (5.8-8.1); Sodium 138 mmol/L (136-145)
--- NOTE | 2017-11-13 18:06 | RAD ---
PORTABLE CHEST: Date: 11/13/17 HISTORY: Cough. COMPARISON: 09/21/17. FINDINGS: Heart size is within normal limits. There are postop sternotomy changes. Linear atelectasis in the ri ght base. No signs of failure. IMPRESSION: Linear atelectasis right lung base. POS: [facility]
[2017-11-13] MEDS ORDERED: Piperacillin/Tazobactam 4.5 GM in Sodium Chloride 0.9% 100 ML IVPB SCH (19:00)
[2017-11-13 23:12] VITALS: BMI 22.6
[2017-11-14] MEDS ORDERED: Enoxaparin Sodium 40 MG/0.4 ML SYRINGE SC SCH ×2 (01:00→21:00)
[2017-11-14] MEDS ORDERED: Ondansetron ODT 4 MG TAB PO PRN (01:10)
[2017-11-14] MEDS ORDERED: Albuterol Sulfate 2.5 mg/3 ml Neb NEB PRN (01:10)
[2017-11-14] MEDS ORDERED: Polyethylene Glycol 3350 17 GM Packet PO PRN (01:10)
[2017-11-14] MEDS ORDERED: Acetaminophen 325 MG TAB PO PRN (01:10)
[2017-11-14] MEDS ORDERED: HYDROcodone/Acetaminophen 10/325 mg Tablet PO PRN (01:10)
[2017-11-14] MEDS ORDERED: HYDROcodone/Acetaminophen 5/325 mg Tablet PO PRN (01:10)
[2017-11-14] MEDS ORDERED: methylPREDNISolone Sod Succ/PF 125 MG/2 ML VIAL IVP SCH (01:15)
[2017-11-14] MEDS ORDERED: hydrALAZINE 20 MG/ML VIAL SLOW IVP PRN ×2 (01:40→11:18)
--- NOTE | 2017-11-14 02:22 | HP ---
DATE OF ADMISSION: 11/14/2017 TIME OF SERVICE: 00:30 PRIMARY CARE PHYSICIAN: Mik Rosen M.D. The patient is a resident of [facility]. CHIEF COMPLAINT: Shortness of breath. HISTORY OF PRESENT ILLNESS: Mr. Sepulveda is a pleasant 72-year-old white male with history of Khai on's, hypertension, coronary artery disease, who presents to the emergency department today for short ness of breath. Notes in the ER say one day, however, he was checked for the flu at his assisted about 3 days ago that was negative. He has been on some Levaquin for prophylaxis and prophylactic d oses of Tamiflu. Nursing reported fever today, though the patient said he has never had fever, just increased temperat ures not over 100 and was brought to the emergency department for evaluation when he was requiring ox ygen to keep his sats 92% or higher. ER notes on arrival was 92% on room air, he was complaining of cough with clear phlegm and some wheez ing. He was given nebulizer treatment, placed on oxygen and we were subsequently called for admissio n. Chest x-ray done in the emergency department showed some lingular scarring, but no pneumonia. Th e patient complains of decreased appetite. He denies any nausea, vomiting, diarrhea, constipation. No shaking chills or rigors. He did miss all of his evening medications. PAST MEDICAL HISTORY: 1. Parkinson's disease. 2. Hypertension. 3. Coronary artery disease. PAST SURGICAL HISTORY: Includes, 1. Hernia repair. 2. Appendectomy. 3. Coronary bypass grafting. 4. Tonsillectomy. HOME MEDICATIONS: 1. Tylenol as needed. 2. Aspirin 81 mg daily. 3. Sinemet 25/100 p.o. t.i.d. 4. Docusate 100 mg p.o. b.i.d. 5. Folic acid 1 mg p.o. daily, 6. Gabapentin 100 mg p.o. t.i.d. 7. Metoprolol tartrate 25 mg p.o. b.i.d. 8. MiraLax 17 grams orally daily. 9. Omeprazole 40 mg daily. 10. Cymbalta 20 mg p.o. q.a.m. 11. Vitamin D2 of 50,000 units orally every week. 12. Iron sulfate 325 mg p.o. daily. 13. Hydrocortisone 10 mg p.o. q.a.m., 5 mg p.o. q.p.m. 14. Levofloxacin dose unknown. New recent medicine, 1. Losartan 50 mg p.o. q.a.m. 2. Pramipexole 0.5 mg p.o. at bedtime. 3. Risperdal 0.25 mg p.o. at bedtime. 4. Tamiflu 75 mg daily. 5. Vitamin B1 of 100 mg daily. ALLERGIES: TRAMADOL causes altered mental status. FAMILY HISTORY: Negative for clotting or bleeding disorder, no immune dysfunction. SOCIAL HISTORY: Negative for habits x3. He does have a 25 or so year pack year history of smoking, smoked 1 pack per day, but quit some 27 years ago. He has no local family and no other immediate con tact. He does wish to be a FULL CODE. REVIEW OF SYSTEMS: A 10-point review of systems was performed, negative for all the systems except a s that is per HPI. PHYSICAL EXAMINATION: VITAL SIGNS: Temperature 97.7, pulse 66, blood pressure 156/73, respiratory rate 20, satting 93% on room air, 95% on 2 liters nasal cannula. GENERAL: He is awake. He is alert. He is oriented x3. He is a thin, frail looking, elderly white male, appears to be in no acute distress. HEENT: Normocephalic, atraumatic. Eyes: Pupils equal, round, react to light bilaterally, mucous me mbranes are moist. He has no visible lesion. No thrush. NECK: Supple with no lymphadenopathy, JVD or thyromegaly. He has normal carotid upstrokes. I do no t appreciate bruits. CHEST: Lungs have diffuse inspiratory expiratory wheezes bilaterally that are very mild. He has a s lightly prolonged expiratory phase. He has no crackles. When taking deep breath, he does have a non productive dry cough. CARDIOVASCULAR: He has normal cardiac and regular. Normal S1, S2. No S3, S4. No audible murmurs. ABDOMEN: Soft. Scaphoid is nontender, nondistended. Good bowel sounds in all four quadrants. Ther e is no rebound, rigidity or guarding. EXTREMITIES: No cyanosis, no clubbing, no edema. He has got 1+ peripheral pulse in the dorsalis ped is and posterior tibial arteries. SKIN: Warm, moist, and well perfused. He has no rashes or lesions. NEUROLOGIC: Cranial nerves II-XII are grossly intact. He has no focal neurologic deficit. He does have a resting pill tremor. He does have cogwheel rigidity and a slightly masked face. He does not g et him up to test his gait. MUSCULOSKELETAL: Showed large joints to be uninflamed. He has got good range of motion and no palpa ble effusions. LABORATORY DATA: Sodium 138, potassium 3.8, chloride 99, bicarbonate 28, BUN 15, creatinine 0.92, gl ucose 84 and calcium 10.0. Liver function completely within normal limits. CBC showed a white count barely elevated at 11.1, he moglobin 11.5, hematocrit 34.8, and platelet count is 371,000. Flu screen here was negative. He has had now 2 of them negative, 11/09 and 11/12. Lactic acid normal at 1.9. Chest x-ray showed lingular a telectasis, but otherwise no infiltrates, no acute cardiopulmonary disease. ASSESSMENT AND PLAN: 1. Probable upper respiratory infection, viral. No sign of bacterial infection at this point. 2. Acute exacerbation of chronic obstructive pulmonary disease. He has not been diagnosed with wood patternmaker rich obstructive pulmonary disease, but does have a significant pack year history of tobacco use. Jeanne ramos has an upper respiratory infection with acute exacerbation of chronic obstructive pulmonary disea se causing his mild hypoxia. 3. Mild hypoxia/mild acute hypoxemic respiratory failure requiring oxygen at present. We will put h im on steroids, nebs, continue his Levaquin, and wean his oxygen as tolerated. He will be able to go home in 1-2 days. 4. Parkinson's disease. We will resume his Sinemet. 5. Hypertension. I will continue his home medications. 6. Coronary artery disease. We will continue his aspirin. He has had no chest pain or other sympto ms.
[2017-11-14] MEDS: Aspirin 81 mg Enteric Coated Tablet PO SCH (09:19)
[2017-11-14] MEDS: Metoprolol Tartrate 25 MG TAB PO SCH ×2 (09:20→20:24)
[2017-11-14] MEDS: Losartan 25 MG TAB PO SCH (09:20)
[2017-11-14] MEDS: Carbidopa/Levodopa 25-100 mg Tablet PO SCH ×3 (09:20→20:24)
[2017-11-14] MEDS: Senokot S 8.6-50 MG TAB PO SCH ×2 (09:20→20:24)
[2017-11-14] MEDS: Gabapentin 100 MG CAP PO SCH ×3 (09:20→20:24)
[2017-11-14] MEDS: Hydrocortisone 10 mg Tablet PO SCH ×2 (09:20→20:23)
[2017-11-14] MEDS: Ferrous Sulfate 325 MG TAB PO SCH (09:20)
[2017-11-14] MEDS ORDERED: cefTRIAXone\\ROCEPHIN 1 GM in Sodium Chloride 0.9% 100 ML IVPB SCH (11:15)
[2017-11-14] MEDS: cefTRIAXone\\ROCEPHIN 1 GM, Syringe 0.4 ML in Sterile Water 9.6 ML SLOW IVP SCH (12:44)
[2017-11-14] MEDS: Pramipexole Di-HCl 1 MG TAB PO SCH (20:22)
[2017-11-14] MEDS: risperiDONE 0.25 MG TAB PO SCH (20:24)
[2017-11-15] MEDS: Metoprolol Tartrate 25 MG TAB PO SCH ×2 (07:53→20:44)
[2017-11-15] MEDS: Ferrous Sulfate 325 MG TAB PO SCH (07:53)
[2017-11-15] MEDS: Hydrocortisone 10 mg Tablet PO SCH ×2 (07:53→20:44)
[2017-11-15] MEDS: Aspirin 81 mg Enteric Coated Tablet PO SCH (07:53)
[2017-11-15] MEDS: Carbidopa/Levodopa 25-100 mg Tablet PO SCH ×3 (07:54→20:44)
[2017-11-15] MEDS: Losartan 25 MG TAB PO SCH (07:54)
[2017-11-15] MEDS: Senokot S 8.6-50 MG TAB PO SCH ×2 (07:54→20:44)
[2017-11-15] MEDS: Gabapentin 100 MG CAP PO SCH ×3 (07:54→20:44)
[2017-11-15] MEDS: cefTRIAXone\\ROCEPHIN 1 GM, Syringe 0.4 ML in Sterile Water 9.6 ML SLOW IVP SCH (11:54)
--- NOTE | 2017-11-15 14:35 | RAD ---
PORTABLE CHEST 1 VIEW: DATE: 11/15/17. TIME: 2:16 p.m. HISTORY: Shortness of breath. FINDINGS: Comparison is made with the exam of 11/13/17. There are changes of median sternotomy. The heart size is normal. There has been interval improveme nt of linear atelectasis in the right lung base. No focal areas of consolidation, pneumothoraces, or pleural effusions are seen. IMPRESSION: No acute process. POS: [facility]
--- NOTE | 2017-11-15 19:43 | PDOC.PN ---
- Subjective Encounter Start Date: 11/15/17 Encounter Start Time: 15:30 Patient seen and examined. SOB on mild exertion/Wheezing +. Cough productive of thick whitish phlegm No overnight events - Objective MAR Reviewed: Yes Result Diagrams: 11/13/17 17:45 11/13/17 17:45 Radiology Reviewed by me: Yes (CXR - ?Rt basilar infiltrate) Phys Exam - Physical Examination Pt in mild resp distress when trying to sit up on the side of bed Respiratory: no wheezing, no rhonchi, wheezing present Cardiovascular: RRR, no rub Gastrointestinal: soft, non-tender, positive bowel sounds Musculoskeletal: no edema Neurological: moves all 4 limbs Dx/Plan - Plan DVT proph w/SCDs IMPRESSION: 1. COPD Exacerbation/Acute hypoxic respiratory failure with ?Rt basilar pneumonia. O2 Sat today 89 % on RA 2. Coronary artery disease, status post bypass. on ASA 3. Hypertension 4. Chronic pain syndrome 5. Depression 6. Physical deconditioning 7. Parkinson disease PLAN: * Cont IV Steroids/Atbx * AM labs * Cont current meds as below * Not stable for dc due to persistent hypoxia Review of Systems - Review of Systems Gastrointestinal: negative: Nausea, Vomiting, Abdominal Pain, Diarrhea, Constipation, Melena, Hematochezia, Other - Medications/Allergies Allergies/Adverse Reactions: Allergies Allergy/AdvReac Type Severity Reaction Status Date / Time tramadol Allergy Verified 11/13/17 22:16 Medications: Current Medications Acetaminophen (Tylenol) 650 mg PO Q4H PRN PRN Reason: Headache/Fever or Pain Last Admin: 11/14/17 01:46 Dose: 650 mg Hydrocodone Bitart/Acetaminophen ([place] 10/325) 1 tab PO Q4H PRN PRN Reason: Severe Pain (7-10) Hydrocodone Bitart/Acetaminophen ([place] 5/325) 1 tab PO Q4H PRN PRN Reason: Moderate Pain (4-6) Albuterol Sulfate (Ventolin) 2.5 mg NEB Q2H PRN PRN Reason: Wheezing Albuterol/Ipratropium (Duoneb) 3 ml NEB [id number] PASHA Last Admin: 11/15/17 13:56 Dose: 3 ml Aspirin (Ecotrin) 81 mg PO DAILY PASHA Last Admin: 11/15/17 07:53 Dose: 81 mg Carbidopa/Levodopa (Sinemet 25-100) 1 tab PO TID [facility] Last Admin: 11/15/17 14:51 Dose: 1 tab Duloxetine HCl (Cymbalta) 20 mg PO DAILY [facility] Last Admin: 11/15/17 07:53 Dose: 20 mg Enoxaparin Sodium (Lovenox) 40 mg SC 2100 [facility] Last Admin: 11/14/17 20:22 Dose: 40 mg Ferrous Sulfate (Feosol) 325 mg PO DAILY [facility] Last Admin: 11/15/17 07:53 Dose: 325 mg Gabapentin (Neurontin) 100 mg PO TID [facility] Last Admin: 11/15/17 14:51 Dose: 100 mg Hydralazine HCl (Apresoline) 10 mg SLOW IVP Q3H PRN PRN Reason: FOR SBP > 180 Last Admin: 11/14/17 01:50 Dose: 10 mg Hydralazine HCl (Apresoline) 10 mg SLOW IVP Q4H PRN PRN Reason: SBP Greater Than 180 Hydrocortisone (Cortef) 10 mg PO DAILY [facility] Last Admin: 11/15/17 07:53 Dose: 10 mg Hydrocortisone (Cortef) 5 mg PO HS [facility] Last Admin: 11/14/17 20:23 Dose: 5 mg Ceftriaxone Sodium 1 gm/ (Syringe 0.4 ml/ Sterile Water) 10 mls @ 120 mls/hr SLOW IVP 1200 [facility] Last Admin: 11/15/17 11:54 Dose: 10 mls Levofloxacin (Levaquin) 500 mg PO 0600 [facility] Last Admin: 11/15/17 05:07 Dose: 500 mg Losartan Potassium (Cozaar) 50 mg PO DAILY [facility] Last Admin: 11/15/17 07:54 Dose: 50 mg Methylprednisolone Sodium Succinate (Solu-Medrol) 40 mg IVP Q6HR [facility] Last Admin: 11/15/17 17:18 Dose: 40 mg Metoprolol Tartrate (Lopressor) 25 mg PO BID [facility] Last Admin: 11/15/17 07:53 Dose: 25 mg Ondansetron HCl (Zofran Odt) 4 mg PO Q6H PRN PRN Reason: Nausea/Vomiting Pantoprazole Sodium (Protonix) 40 mg PO DAILY [facility] Last Admin: 11/15/17 07:54 Dose: 40 mg Polyethylene Glycol (Miralax) 17 gm PO DAILY PRN PRN Reason: Constipation Pramipexole Dihydrochloride (Mirapex) 0.5 mg PO HS [facility] Last Admin: 11/14/17 20:22 Dose: 0.5 mg Risperidone (Risperidone) 0.25 mg PO [facility] Last Admin: 11/14/17 20:24 Dose: 0.25 mg Senna/Docusate Sodium (Senokot S) 1 tab PO BID [facility] Last Admin: 11/15/17 07:54 Dose: 1 tab Thiamine HCl (Thiamine) 100 mg PO DAILY [facility] Last Admin: 11/15/17 07:53 Dose: 100 mg
[2017-11-15] MEDS: risperiDONE 0.25 MG TAB PO SCH (20:44)
[2017-11-15] MEDS: Pramipexole Di-HCl 1 MG TAB PO SCH (20:44)
[2017-11-15] MEDS: Enoxaparin Sodium 30 MG/0.3 ML SYRINGE SC SCH (20:45)
[2017-11-16 05:02] LABS: #Monocytes 0.5 thou/uL (0.11-0.59); #Neutrophils 12.2 thou/uL (1.40-6.50); %Basophils 0.1 % (0.0-1.0); %Eosinophils 0.1 % (0.0-10.0); %Lymphocytes 7.1 % (21.0-51.0); %Monocytes 3.6 % (0.0-10.0); Hemoglobin 9.3 g/dL (14.0-18.0); Mean Corpuscular HGB CONC 33.2 g/dL (32.0-36.0); Mean Corpuscular Hemoglobin 30.1 pg (27.0-31.0); Mean Corpuscular Volume 90.8 fl (80.0-94.0); Mean Platelet Volume 6.5 fL (7.4-10.4); Platelet Count 423 thou/uL (130-400); RBC Distribution Width 12.5 % (11.5-14.5); White Blood Cell (WBC) Count 13.7 thou/uL (4.8-10.8)
[2017-11-16 05:19] LABS: Albumin 3.4 g/dL (3.4-4.8); Anion Gap 14 mmol/L (10-20); BUN (Urea Nitrogen) 21 mg/dL (8.4-25.7); BUN/Creatinine Ratio 26.25; Calc. Creatinine Clearance 78 mL/min (70-130); Calcium 8.8 mg/dL (7.8-10.44); Carbon Dioxide 24 mmol/L (23-31); Chloride 100 mmol/L (98-107); Estimated GFR-MDRD Greater than 90; Glucose 134 mg/dL (83-110); Phosphorus 3.7 mg/dL (2.3-4.7); Potassium 3.1 mmol/L (3.5-5.1); Sodium 135 mmol/L (136-145)
[2017-11-16] MEDS: Losartan 25 MG TAB PO SCH (08:25)
[2017-11-16] MEDS: Metoprolol Tartrate 25 MG TAB PO SCH ×2 (08:25→21:19)
[2017-11-16] MEDS: Senokot S 8.6-50 MG TAB PO SCH ×2 (08:25→21:19)
[2017-11-16] MEDS: Hydrocortisone 10 mg Tablet PO SCH ×2 (08:25→21:19)
[2017-11-16] MEDS: Aspirin 81 mg Enteric Coated Tablet PO SCH (08:25)
[2017-11-16] MEDS: Gabapentin 100 MG CAP PO SCH ×3 (08:25→21:19)
[2017-11-16] MEDS: Ferrous Sulfate 325 MG TAB PO SCH (08:25)
[2017-11-16] MEDS: Carbidopa/Levodopa 25-100 mg Tablet PO SCH ×3 (08:47→21:19)
[2017-11-16] MEDS ORDERED: Potassium Chloride 20 MEQ TAB PO SCH (10:15)
[2017-11-16] MEDS: cefTRIAXone\\ROCEPHIN 1 GM, Syringe 0.4 ML in Sterile Water 9.6 ML SLOW IVP SCH (12:12)
--- NOTE | 2017-11-16 17:19 | PDOC.PN ---
- Subjective Encounter Start Date: 11/16/17 Encounter Start Time: 11:20 Subjective: pt up in bed wants to go home - Objective Vital Signs & Weight: Vital Signs (12 hours) Temp Pulse Resp BP Pulse Ox 11/16/17 14:20 87 16 97 11/16/17 10:17 85 20 11/16/17 08:00 98.1 F 60 20 97 11/16/17 07:55 96 11/16/17 07:54 60 20 96 11/16/17 07:47 97.6 F 70 18 175/82 H 96 I&O: 11/15/17 11/16/17 11/17/17 06:59 06:59 06:59 Intake Total 240 600 Balance 240 600 Result Diagrams: 11/16/17 04:28 11/16/17 04:28 Phys Exam - Physical Examination HEENT: PERRLA Neck: no nodes Respiratory: wheezing present (pt has rhonchi all over lungs) Cardiovascular: RRR, no significant murmur Gastrointestinal: soft, non-tender Musculoskeletal: no edema Psychiatric: normal affect Dx/Plan (1) COPD with acute exacerbation Code(s): J44.1 - CHRONIC OBSTRUCTIVE PULMONARY DISEASE W (ACUTE) EXACERBATION Status: Acute Plan: pt up in bed still on oxygen, on iv steroids. will continue abx, will check resp viral panel (2) Hypertension Code(s): I10 - ESSENTIAL (PRIMARY) HYPERTENSION Status: Chronic Plan: pt is on solucortef at home? not sure why. pt's solumedrol has been reduced. on metoprolol. - Plan * .
[2017-11-16] MEDS: Enoxaparin Sodium 30 MG/0.3 ML SYRINGE SC SCH (21:17)
[2017-11-16] MEDS: Pramipexole Di-HCl 1 MG TAB PO SCH (21:18)
[2017-11-16] MEDS: risperiDONE 0.25 MG TAB PO SCH (21:19)
[2017-11-17] MEDS: Losartan 25 MG TAB PO SCH (09:35)
[2017-11-17] MEDS: Gabapentin 100 MG CAP PO SCH ×3 (09:35→21:07)
[2017-11-17] MEDS: Metoprolol Tartrate 25 MG TAB PO SCH ×2 (09:35→21:09)
[2017-11-17] MEDS: Ferrous Sulfate 325 MG TAB PO SCH (09:35)
[2017-11-17] MEDS: Carbidopa/Levodopa 25-100 mg Tablet PO SCH ×3 (09:35→21:09)
[2017-11-17] MEDS: Aspirin 81 mg Enteric Coated Tablet PO SCH (09:35)
[2017-11-17] MEDS: Senokot S 8.6-50 MG TAB PO SCH ×2 (09:35→21:09)
[2017-11-17] MEDS: Hydrocortisone 10 mg Tablet PO SCH ×2 (09:35→21:07)
[2017-11-17] MEDS: cefTRIAXone\\ROCEPHIN 1 GM, Syringe 0.4 ML in Sterile Water 9.6 ML SLOW IVP SCH (13:03)
--- NOTE | 2017-11-17 15:09 | PDOC.PN ---
- Subjective Encounter Start Date: 11/17/17 Encounter Start Time: 11:00 Subjective: pt up in bed states he feels much better - Objective Vital Signs & Weight: Vital Signs (12 hours) Temp Pulse Pulse Resp BP Pulse Ox Pulse Ox 11/17/17 14:10 84 16 98 11/17/17 10:08 86 16 94 L 11/17/17 09:02 96 96 11/17/17 08:00 97.7 F 78 22 H 95 11/17/17 07:26 97.7 F 78 22 H 158/82 H 92 L 11/17/17 07:08 76 16 97 I&O: 11/16/17 11/17/17 11/18/17 06:59 06:59 06:59 Intake Total 240 1340 480 Output Total 2 Balance 240 1338 480 Result Diagrams: 11/16/17 04:28 11/16/17 04:28 Phys Exam - Physical Examination HEENT: PERRLA Neck: no nodes Respiratory: wheezing present (significnat wheezing and rhonchi) Cardiovascular: RRR, no significant murmur Gastrointestinal: soft, non-tender Psychiatric: normal affect Dx/Plan (1) COPD with acute exacerbation Code(s): J44.1 - CHRONIC OBSTRUCTIVE PULMONARY DISEASE W (ACUTE) EXACERBATION Status: Acute Plan: pt still has significant wheezing and not ready for discharge. will increase steroids to bid, will add flutter valve and mucinex. will continue levaquin (2) Hypertension Code(s): I10 - ESSENTIAL (PRIMARY) HYPERTENSION Status: Chronic Plan: stable continue to monitor - Plan * .
[2017-11-17] MEDS: Pramipexole Di-HCl 1 MG TAB PO SCH (21:08)
[2017-11-17] MEDS: Enoxaparin Sodium 30 MG/0.3 ML SYRINGE SC SCH (21:09)
[2017-11-17] MEDS: risperiDONE 0.25 MG TAB PO SCH (21:09)
[2017-11-17] MEDS: guaiFENesin ER 600 MG TAB PO SCH (21:09)
[2017-11-18] MEDS: Carbidopa/Levodopa 25-100 mg Tablet PO SCH ×3 (09:26→20:58)
[2017-11-18] MEDS: Metoprolol Tartrate 25 MG TAB PO SCH ×2 (09:26→21:00)
[2017-11-18] MEDS: guaiFENesin ER 600 MG TAB PO SCH ×2 (09:26→21:00)
[2017-11-18] MEDS: Ferrous Sulfate 325 MG TAB PO SCH (09:27)
[2017-11-18] MEDS: Senokot S 8.6-50 MG TAB PO SCH ×2 (09:27→21:00)
[2017-11-18] MEDS: Hydrocortisone 10 mg Tablet PO SCH ×2 (09:27→20:59)
[2017-11-18] MEDS: Losartan 25 MG TAB PO SCH (09:27)
[2017-11-18] MEDS: Gabapentin 100 MG CAP PO SCH ×3 (09:27→21:00)
[2017-11-18] MEDS: Aspirin 81 mg Enteric Coated Tablet PO SCH (09:27)
--- NOTE | 2017-11-18 11:54 | PDOC.PN ---
- Subjective Encounter Start Date: 11/18/17 Encounter Start Time: 10:00 Subjective: pt up in bed feels a lot better - Objective Vital Signs & Weight: Vital Signs (12 hours) Temp Pulse Resp BP Pulse Ox 11/18/17 10:32 74 18 100 11/18/17 08:00 97.4 F L 83 16 95 11/18/17 07:45 97.4 F L 83 16 126/71 95 I&O: 11/17/17 11/18/17 11/19/17 06:59 06:59 06:59 Intake Total 1340 2500 240 Output Total 2 Balance 1338 2500 240 Result Diagrams: 11/16/17 04:28 11/16/17 04:28 Phys Exam - Physical Examination HEENT: PERRLA Neck: no nodes Respiratory: wheezing present (improved from yestarday) Cardiovascular: RRR, no significant murmur Gastrointestinal: soft, non-tender Musculoskeletal: no edema Neurological: non-focal Psychiatric: normal affect Dx/Plan (1) COPD with acute exacerbation Code(s): J44.1 - CHRONIC OBSTRUCTIVE PULMONARY DISEASE W (ACUTE) EXACERBATION Status: Acute Plan: will change steroids to po, pt is doing well, continue abx for now. will get oxygen walk test. (2) Hypertension Code(s): I10 - ESSENTIAL (PRIMARY) HYPERTENSION Status: Chronic Plan: stable continue to monitor - Plan * .
[2017-11-18] MEDS: Pramipexole Di-HCl 1 MG TAB PO SCH (20:58)
[2017-11-18] MEDS: Enoxaparin Sodium 30 MG/0.3 ML SYRINGE SC SCH (21:00)
[2017-11-18] MEDS: risperiDONE 0.25 MG TAB PO SCH (21:00)
[2017-11-19 05:35] LABS: Anion Gap 9 mmol/L (10-20); BUN (Urea Nitrogen) 14 mg/dL (8.4-25.7); Calc. Creatinine Clearance 87 mL/min (70-130); Calcium 8.6 mg/dL (7.8-10.44); Carbon Dioxide 25 mmol/L (23-31); Chloride 104 mmol/L (98-107); Estimated GFR-MDRD Greater than 90; Glucose 102 mg/dL (83-110); Potassium 3.3 mmol/L (3.5-5.1); Sodium 135 mmol/L (136-145)
[2017-11-19 05:55] LABS: MDiff Complete? YES
[2017-11-19 05:56] LABS: Band 4 % (5-11); Hemoglobin 9.4 g/dL (14.0-18.0); Lymphocytes 28 % (21-51); Mean Corpuscular HGB CONC 32.7 g/dL (32.0-36.0); Mean Corpuscular Hemoglobin 29.7 pg (27.0-31.0); Mean Corpuscular Volume 90.7 fl (80.0-94.0); Mean Platelet Volume 6.2 fL (7.4-10.4); Monocytes 7 % (0-10); Neutrophil 61 % (42-75); Platelet Count 483 thou/uL (130-400); Red Blood Cell (RBC) Count 3.18 mill/uL (4.70-6.10)
[2017-11-19] MEDS ORDERED: predniSONE 20 MG TAB PO SCH (08:00)
[2017-11-19] MEDS: Carbidopa/Levodopa 25-100 mg Tablet PO SCH (08:36)
[2017-11-19] MEDS: guaiFENesin ER 600 MG TAB PO SCH (08:37)
[2017-11-19] MEDS: Gabapentin 100 MG CAP PO SCH (08:37)
[2017-11-19] MEDS: Hydrocortisone 10 mg Tablet PO SCH (08:37)
[2017-11-19] MEDS: Ferrous Sulfate 325 MG TAB PO SCH (08:37)
[2017-11-19] MEDS: Losartan 25 MG TAB PO SCH (08:37)
[2017-11-19] MEDS: Metoprolol Tartrate 25 MG TAB PO SCH (08:37)
[2017-11-19] MEDS: Senokot S 8.6-50 MG TAB PO SCH (08:37)
[2017-11-19] MEDS: Aspirin 81 mg Enteric Coated Tablet PO SCH (08:37)
[2017-11-19] MEDS ORDERED: Potassium Chloride 20 MEQ TAB PO SCH (10:00)
[2017-11-19 11:44] VITALS: BP 171/82; TEMP 98.2
--- NOTE | 2017-11-20 00:46 | DIS ---
DATE OF ADMISSION: 11/14/2017 DATE OF DISCHARGE: 11/19/2017 DISCHARGE MEDICATIONS: As the following, acetaminophen with codeine 1 tab b.i.d., pramipexole 0.5 mg at bedtime, Senna Plus 1 p.o. b.i.d., Tylenol Extra Strength mg p.o. daily p.r.n., aspirin 81 mg p.o . daily, Sinemet 1 p.o. t.i.d., calcium with vitamin D 1 p.o. daily, Cymbalta 20 mg daily, vitamin D2 , gabapentin 100 mg t.i.d., folic acid 1 daily, ferrous sulfate 325 daily, MiraLax 17 grams p.o. marily y as needed, thiamine 100 mg daily, hydrocortisone 5 mg p.o. at bedtime, hydrocortisone 10 mg p.o. [place], losartan 50 mg daily, risperidone 0.25 mg at bedtime, Protonix 40 mg daily, Mucinex 600 mg q.12 hours for 3 days, metoprolol 25 mg b.i.d., and DuoNeb q.4 hours p.r.n. as needed. HOSPITAL COURSE: The patient is a very pleasant 72-year-old male, who resides in a senior living [facility], who initially presented to the hospital with shortness of breath. The patient was found to have mild hypoxia. He is not oxygen dependent at home. Patient was checked for respiratory panel an d RSV was detected; however, influenza was negative. Patient initially was put on IV steroids and al so on p.o. antibiotics. The patient continued to improve throughout the whole hospital stay. Steroi ds were only given for 5 days; on discharge, steroids were discontinued. The patient was given a flu tter valve and incentive spirometer, which he has been using really well. He completed his dose of a ntibiotics. Patient, on discharge, was able to ambulate without having any hypoxia. He will follow up with his PCP in a week. He will be discharged to a senior living facility. PHYSICAL EXAMINATION: GENERAL: The patient awake, alert, oriented x3. CARDIOVASCULAR: S1 and S2 present. No murmurs, rubs, or gallops. LUNGS: Clear to auscultation. EXTREMITIES: No extremity edema. ABDOMEN: Soft, nontender. Bowel sounds are present x2.
--- NOTE | 2017-12-10 19:55 | EKG ---
Test Reason : Blood Pressure : / mmHG Vent. Rate : 073 BPM Atrial Rate : 073 BPM P-R Int : 224 ms QRS Dur : 096 ms QT Int : 412 ms P-R-T Axes : 029 -03 031 degrees QTc Int : 453 ms Sinus rhythm with 1st degree A-V block Otherwise normal ECG Confirmed by RANI RUFFIN ([id number]), web content editor ANABELL PRITCHARD ([id number]) on 12/10/2017 7:54:40 PM Referred By: Confirmed By:RANI RUFFIN
== END 2017-11-19 13:40 | DRG 189 ==
LOC: ERS 17:07 → T4-A 19:15 → OBSVTOIN 11-15 15:13
PROVIDERS: ADMIT Family Medicine; ATTEND Family Medicine
DX: J96.01 Acute respiratory failure with hypoxia (principal); G20 Parkinson's disease; B97.4 Respiratory syncytial virus as the cause of diseases classified elsewhere; J44.1 Chronic obstructive pulmonary disease with (acute) exacerbation; I10 Essential (primary) hypertension; I25.10 Atherosclerotic heart disease of native coronary artery without angina pectoris; Z95.1 Presence of aortocoronary bypass graft; G89.4 Chronic pain syndrome; F32.9 Major depressive disorder, single episode, unspecified; Z87.891 Personal history of nicotine dependence; J06.9 Acute upper respiratory infection, unspecified
CPT/HCPCS: 36415; 71045; 80048; 80053; 80069; 83605; 83735; 83880; 85007; 85025; 85027; 87040; 87633; 87798; 87804; 93005; 94640; 94760; 96365; 96366; 96367; A4216; G8978-GP-CK; G8979-GP-CJ; J0360; J0696; J1650; J1956; J2543; J2920; J2930; J7050; J7506; J7620

== ENCOUNTER 2018-04-12 13:12 | Outpatient (CLI) | payer MEDICARE, MEDICAID ==
--- NOTE | 2018-04-12 15:45 | MRI ---
MRI OF THE LUMBAR SPINE WITHOUT CONTRAST: Date: 04/12/18 INDICATION: Concern for fracture after falling. COMPARISON: Prior exam dated 05/27/16. FINDINGS: There is an acute superior end plate wedge compression abnormality of L1. There are chronic wedge com pression abnormalities of T11 and T10. At L5-S1, there is mild facet joint degenerative change, but no appreciable central canal or neural f oraminal narrowing. At L4-5, there is a broad based bulge with small superimposed central protrusion. There is no appreci able central canal or neural foraminal narrowing. At L3-4, there is a broad based bulge with mild encroachment on the neural foramina without definite impingement. At L2-3, there is a broad based bulge without appreciable central canal or neural foraminal narrowing . At L1-2, there is a broad based bulge without appreciable central canal or neural foraminal narrowing . At T12-L1, there is no appreciable central canal or neural foraminal narrowing. IMPRESSION: 1. New acute superior end plate wedge compression abnormality of L1. 2. Multilevel spondylosis of the lumbar spine. POS: [facility]
--- NOTE | 2018-04-12 15:46 | MRI ---
MRI THORACIC SPINE WITHOUT CONTRAST: INDICATIONS: Compression fracture of the thoracic spine. COMPARISON: 05/03/2014 FINDINGS: There are stable chronic compression abnormalities of T10 and T11. No definite acute compression abn ormality is grossly evident within the thoracic spine. Multilevel spondylosis of the thoracic spine is similar appearing to the comparison study. No definite central canal or neural foraminal narrowin g is evident. Motion artifact slightly limits image detail. IMPRESSION: Compression abnormalities of T10 and T11 are stable to the comparison in 2013. No new compression ab normality of the thoracic spine. Please see separately dictated, concurrently performed MRI of the l umbar spine for details concerning magnetic resonance examination of the lumbar spine. POS: [facility]
== END 2018-04-12 13:13 | disposition home or self-care (01) ==
LOC: MRI 13:12
PROVIDERS: ATTEND Specialist
DX: S32.000A Wedge compression fracture of unspecified lumbar vertebra, initial encounter for closed fracture (principal); S22.000A Wedge compression fracture of unspecified thoracic vertebra, initial encounter for closed fracture; M47.896 Other spondylosis, lumbar region
CPT/HCPCS: 72146; 72148

== ENCOUNTER 2018-05-01 15:41 | Inpatient (IN) | payer MEDICARE, MEDICAID ==
[2018-05-01 17:23] LABS: #Basophils 0.1 thou/uL (0.0-0.2); #Eosinphils 0.1 thou/uL (0.0-0.7); #Lymphocytes 1.8 thou/uL (1.20-3.40); #Monocytes 0.7 thou/uL (0.11-0.59); #Neutrophils 4.1 thou/uL (1.40-6.50); %Basophils 1.4 % (0.0-1.0); %Eosinophils 2.1 % (0.0-10.0); %Lymphocytes 25.9 % (21.0-51.0); %Monocytes 10.1 % (0.0-10.0); %Neutrophils 60.5 % (42.0-75.0); Hemoglobin 11.7 g/dL (14.0-18.0); Mean Corpuscular HGB CONC 34.9 g/dL (32.0-36.0); Mean Corpuscular Hemoglobin 30.3 pg (27.0-31.0); Mean Corpuscular Volume 86.7 fL (78.0-98.0); Mean Platelet Volume 5.4 fL (7.4-10.4); Platelet Count 312 thou/uL (130-400); RBC Distribution Width 12.7 % (11.5-14.5); Red Blood Cell (RBC) Count 3.87 mill/uL (4.70-6.10); White Blood Cell (WBC) Count 6.8 thou/uL (4.8-10.8)
[2018-05-01 17:45] LABS: ALT (SGPT) Less than 7 U/L (8-55); AST (SGOT) 11 U/L (5-34); Albumin 4.2 g/dL (3.4-4.8); Alkaline Phosphatase 83 U/L (40-150); Anion Gap 11 mmol/L (10-20); BUN (Urea Nitrogen) 4 mg/dL (8.4-25.7); Bilirubin, Total 0.5 mg/dL (0.2-1.2); Calc. Creatinine Clearance 0 mL/min (70-130); Calcium 9.3 mg/dL (7.8-10.44); Carbon Dioxide 27 mmol/L (23-31); Chloride 91 mmol/L (98-107); Estimated GFR-MDRD Greater than 90; Globulin 2.8 g/dL (2.4-3.5); Glucose 106 mg/dL (83-110); Potassium 4.6 mmol/L (3.5-5.1); Sodium 124 mmol/L (136-145)
--- NOTE | 2018-05-01 17:53 | RAD ---
PORTABLE CHEST 1 VIEW: Date: 05/01/18 Time: 1622 hours HISTORY: Low sodium. FINDINGS: Comparison made with the exam of 11/15/17. Changes of median sternotomy are again seen. The heart size is normal. No lobar consolidation, pneumo thorax, anuj pulmonary edema, or large effusions are seen. IMPRESSION: No acute process. POS: [facility]
[2018-05-01 19:41] LABS: Bilirubin Negative (Negative); Blood, Urine Negative (Negative); Clarity CLEAR (Clear); Glucose, Urine (Dipstick) Negative (Negative); Leukocyte Negative (Negative); Nitrite Negative (Negative); Protein, Urine (Dipstick) Negative (Neg-Trace); Specific Gravity, Urine 1.008 (1.002-1.036)
[2018-05-01] MEDS ORDERED: HYDROcodone/Acetaminophen 5/325 mg Tablet PO PRN ×2 (21:12→21:14)
[2018-05-01] MEDS ORDERED: Ondansetron ODT 4 MG TAB PO PRN (21:12)
[2018-05-01] MEDS ORDERED: Polyethylene Glycol 3350 17 GM Packet PO PRN (21:14)
[2018-05-01 23:56] VITALS: BMI 24.3
[2018-05-02] MEDS: Sodium Chloride 0.9% 1,000 ML IV SCH ×2 (00:16→08:22)
--- NOTE | 2018-05-02 02:35 | HP ---
DATE OF ADMISSION: 05/01/2018 CHIEF COMPLAINT: Abnormal labs. HISTORY OF PRESENT ILLNESS: This is a 72-year-old white male, is a resident of a longterm. He w as seen by his primary care physician at the longterm and when she went through the labs, the pat ient's sodium was low, so the patient was immediately referred to the hospital for further evaluation . When patient presented to the ER, he was alert and oriented. He has been lethargic and fatigued, which according to him, has been there for long time and he did not notice any change in his lethargy or fatigue. The patient denies having any dizziness, no chest pain, no nausea, no vomiting, no diar scar, no constipation. No history of any new medications. The patient has a known history of hypert ension and he is on lisinopril and also on number of the inhalers. PAST MEDICAL HISTORY: 1. History of Parkinson's disease. 2. History of hypertension. 3. History of anemia of chronic disease. 4. History of adrenal insufficiency. 5. History of chronic obstructive pulmonary disease. PAST SURGICAL HISTORY: 1. Hernia repair. 2. Appendectomy. 3. Coronary artery disease with coronary artery bypass graft. 4. Tonsillectomy. HOME MEDICATIONS: 1. Aspirin 81 mg daily. 2. Sinemet 25/100 p.o. t.i.d. 3. Docusate. 4. Folic acid. 5. mg p.o. t.i.d. 6. Metoprolol 25 mg p.o. b.i.d. 7. Omeprazole. 8. Cymbalta 20 mg p.o. daily. 9. Vitamin D. 10. Iron sulfate 325 p.o. daily. 11. Hydrocortisone 10 mg in the morning and 5 mg in the evening. 12. Losartan 50 mg p.o. daily. 13. Pramipexole 0.5 mg p.o. daily. 14. Risperdal 0.25 mg p.o. at bedtime. ALLERGIES: TRAMADOL causes altered mental status. FAMILY HISTORY: Negative for any coronary artery disease or any premature deaths in the family. SOCIAL HISTORY: The patient is not a known smoker. No history of alcohol, no history of illicit alexandra g use. He is a former smoker. Patient is a resident of a longterm. REVIEW OF SYSTEMS: All 12 systems are reviewed with the patient thoroughly and found to be negative at this time except the ones described in HPI. Systems reviewed are HEENT, CVS, MEAT AND SEAFOOD MANAGER, respiratory, GI , , musculoskeletal, skin, integument and psychiatric. PHYSICAL EXAMINATION: VITAL SIGNS: Blood pressures are 130/88, heart rate is 80, respiratory rate is 18, saturation 98%. GENERAL: The patient is moderately built and moderately nourished. He does not appear to be in acut e distress at this time. He is alert and oriented x3. HEENT: Atraumatic, normocephalic, PERRLA. Extraocular muscles were intact. Oral mucosa pink and mo ist. CARDIOVASCULAR: S1, S2 normal. No murmurs, rubs or gallops. LUNGS: Bilateral air entry was equal. No wheezing, no crackles. ABDOMEN: Soft, nontender. No guarding or rebound tenderness. Bowel sounds normal. MUSCULOSKELETAL: No calf tenderness. No pedal edema. No joint tenderness, no joint swelling. SKIN: No cyanosis, no erythema, no rash, no pallor. NEUROLOGIC: Cranial nerve examination intact. No focal deficits were noted. PSYCHIATRIC: No signs of suicidal ideations. No signs of naldo. LABORATORY DATA: WBC 6.8, hemoglobin is 11.7, hematocrit 33.5, platelets are 312. Sodium 124, potas sium 4.6, chloride is 91, BUN 4, creatinine 0.78, but osmolality 258. IMAGING: UA was negative for any urinary tract infection. Chest x-ray was done which did not show a ny evidence of pneumonia or any cardiopulmonary process. ASSESSMENT AND PLAN: 1. Acute hyponatremia. 2. Coronary artery disease. 3. Hypertension. 4. History of chronic obstructive pulmonary disease. 5. History of Parkinson's disease. PLAN: 1. Plan is to closely monitor this patient. We will continue the patient on normal saline which was started in the ER and will hold off on the losartan at this time as it can sometimes contribute to h yponatremia. The patient is not on any hydrochlorothiazide and so most likely the reason for her hyp onatremia could be syndrome of inappropriate antidiuretic hormone secretion because of the SSRIs the patient is on. We will plan for free water restriction of 2 liters at this time. 2. The patient has history of coronary artery disease with history of coronary artery bypass graftin g. No evidence of any chest pain. We will continue the patient on aspirin and beta blockers. 3. The patient has a history of Parkinson's disease. We will continue the patient on levodopa/carbi dopa. No evidence of any exacerbation was noted. 4. Hypertension. We will hold the losartan as discussed above. We will continue the patient on bet a-blockers at this time. 5. Deep venous thrombosis prophylaxis, Lovenox. I spent 65 minutes with this patient.
[2018-05-02 05:01] LABS: #Basophils 0.1 thou/uL (0.0-0.2); #Eosinphils 0.2 thou/uL (0.0-0.7); #Lymphocytes 3.3 thou/uL (1.20-3.40); #Monocytes 0.9 thou/uL (0.11-0.59); #Neutrophils 4.9 thou/uL (1.40-6.50); %Basophils 0.9 % (0.0-1.0); %Eosinophils 2.2 % (0.0-10.0); %Monocytes 9.2 % (0.0-10.0); %Neutrophils 52.7 % (42.0-75.0); Hemoglobin 11.7 g/dL (14.0-18.0); Mean Corpuscular HGB CONC 34.6 g/dL (32.0-36.0); Mean Corpuscular Hemoglobin 30.1 pg (27.0-31.0); Mean Corpuscular Volume 86.8 fL (78.0-98.0); Mean Platelet Volume 5.6 fL (7.4-10.4); Platelet Count 319 thou/uL (130-400); RBC Distribution Width 12.8 % (11.5-14.5); Red Blood Cell (RBC) Count 3.91 mill/uL (4.70-6.10); White Blood Cell (WBC) Count 9.3 thou/uL (4.8-10.8)
[2018-05-02 05:12] LABS: Anion Gap 13 mmol/L (10-20); BUN (Urea Nitrogen) 4 mg/dL (8.4-25.7); Calc. Creatinine Clearance 96 mL/min (70-130); Calcium 9.3 mg/dL (7.8-10.44); Carbon Dioxide 25 mmol/L (23-31); Chloride 94 mmol/L (98-107); Estimated GFR-MDRD Greater than 90; Glucose 88 mg/dL (83-110); Potassium 4.1 mmol/L (3.5-5.1); Sodium 128 mmol/L (136-145)
[2018-05-02] MEDS: Acetaminophen 500 MG TAB PO SCH (08:05)
[2018-05-02] MEDS: Acetaminophen/Codeine 30-300mg Tablet PO SCH ×2 (08:06→19:55)
[2018-05-02] MEDS: Folic Acid 1 MG TAB PO SCH (08:07)
[2018-05-02] MEDS: Calcium Carbonate + Vit D 1 TAB PO SCH (08:07)
[2018-05-02] MEDS: Gabapentin 100 MG CAP PO SCH ×3 (08:07→19:50)
[2018-05-02] MEDS: guaiFENesin ER 600 MG TAB PO SCH ×2 (08:07→19:51)
[2018-05-02] MEDS: Carbidopa/Levodopa CR 50-200 mg Tablet PO SCH ×3 (08:07→19:51)
[2018-05-02] MEDS: Ferrous Sulfate 325 MG TAB PO SCH (08:07)
[2018-05-02] MEDS: Aspirin 81 mg Enteric Coated Tablet PO SCH (08:07)
[2018-05-02] MEDS: Metoprolol Tartrate 25 MG TAB PO SCH ×2 (08:08→19:50)
[2018-05-02] MEDS: Enoxaparin Sodium 40 MG/0.4 ML SYRINGE SC SCH (08:08)
[2018-05-02] MEDS: Ergocalciferol 1.25 MG(50,000 UNITS) CAP PO SCH (08:08)
[2018-05-02] MEDS: Hydrocortisone 10 mg Tablet PO SCH ×2 (08:12→19:50)
[2018-05-02] MEDS: Famotidine/PF 20 mg/2ml Vial SLOW IVP SCH ×2 (10:35→19:52)
--- NOTE | 2018-05-02 12:59 | CON ---
DATE OF CONSULTATION: 05/02/2018 REASON FOR CONSULTATION: Hyponatremia. HISTORY OF PRESENT ILLNESS: This is a 72-year-old gentleman who cannot give history as the patient i s nonverbal, was admitted for abnormal labs. The patient had a sodium of 124, which increased to 128 after normal saline, so I was consulted this morning. No further history can be obtained. PAST MEDICAL HISTORY: Significant for Parkinson's, hypertension, anemia, COPD, hernia, coronary radha ry disease. HOME MEDICATIONS: List reviewed. HOSPITAL MEDICATIONS: List reviewed. ALLERGIES: Reviewed. REVIEW OF SYSTEMS: Unobtainable. SOCIAL ECONOMIC HISTORY: Unobtainable. PHYSICAL EXAMINATION: GENERAL: Patient is resting. VITAL SIGNS: Afebrile, pulse 62, breathing at 16, blood pressure 176/84. GENERAL APPEARANCE AND MENTAL STATUS: Fair. HEAD/NECK: Normocephalic. Atraumatic. EYES: EOMI. No deformity. EARS: Clear. No ulcers. NOSE: Intact. No lesions. MOUTH: Clear. No discharge. THROAT: Clear. No exudate. LUNGS: Clear. No crackles. CARDIAC: S1, S2. No rub. ABDOMEN: Benign. BS+. GENITALIA/RECTUM: Barnes absent. BACK/EXTREMITIES: Edema 0+ Ulcer-. NEUROLOGICAL: Alert and motor intact. SKIN: Rash- Bruise- LYMPHATICS: Edema- Ulcer-. LABORATORY DATA: Show sodium 128. Serum osmolarity of 264. Urine sodium 69, urine osmolality was n ot done. ASSESSMENT AND RECOMMENDATIONS: 1. Hyponatremia, most likely because of syndrome of inappropriate antidiuretic hormone secretion. W e would recommend fluid restriction. 2. Anemia, stable. 3. Medication based on GFR are appropriate. 4. Hypertension, management per primary team. No indication for hypertonic saline. I will repeat l abs later today.
[2018-05-02 13:59] LABS: Osmolality, Urine 245 mOsm/kg (300-900)
[2018-05-02 14:08] LABS: Sodium, Urine 68 mmol/L (Not Available)
[2018-05-02 14:41] LABS: Anion Gap 15 mmol/L (10-20); BUN (Urea Nitrogen) 5 mg/dL (8.4-25.7); Calc. Creatinine Clearance 92 mL/min (70-130); Calcium 9.6 mg/dL (7.8-10.44); Carbon Dioxide 23 mmol/L (23-31); Chloride 96 mmol/L (98-107); Estimated GFR-MDRD Greater than 90; Glucose 91 mg/dL (83-110); Potassium 4.5 mmol/L (3.5-5.1); Sodium 129 mmol/L (136-145)
--- NOTE | 2018-05-02 16:50 | PDOC.PN ---
- Subjective Encounter Start Date: 05/02/18 Encounter Start Time: 16:49 Subjective: feels well. no nausea/vomiting/pain/discomfort - Objective MAR Reviewed: Yes Vital Signs & Weight: Vital Signs (12 hours) Temp Pulse Resp BP Pulse Ox 05/02/18 16:26 97.7 F 67 16 155/83 H 96 05/02/18 14:57 70 16 91 L 05/02/18 11:39 98.1 F 62 18 176/84 H 100 05/02/18 11:34 56 L 16 95 05/02/18 08:00 97.8 F 61 16 98 05/02/18 07:52 61 16 98 05/02/18 07:32 97.8 F 63 16 201/81 H 98 I&O: 05/01/18 05/02/18 05/03/18 06:59 06:59 06:59 Intake Total 940 360 Balance 940 360 Result Diagrams: 05/02/18 04:26 05/02/18 14:14 Additional Labs: labs reviewed Phys Exam - Physical Examination Constitutional: NAD HEENT: PERRLA, moist MMs, sclera anicteric, oral pharynx no lesions Neck: no nodes, no JVD, supple, full ROM Respiratory: no wheezing, no rales, no rhonchi, clear to auscultation bilateral Cardiovascular: RRR, no significant murmur, no rub Gastrointestinal: soft, non-tender, no distention, positive bowel sounds Musculoskeletal: no edema, pulses present Neurological: non-focal, normal sensation, moves all 4 limbs Psychiatric: normal affect, A&O x 3 Skin: no rash Dx/Plan (1) Hyponatremia Code(s): E87.1 - HYPO-OSMOLALITY AND HYPONATREMIA Status: Acute (2) COPD (chronic obstructive pulmonary disease) Status: Acute (3) Chronic back pain Code(s): M54.9 - DORSALGIA, UNSPECIFIED; G89.29 - OTHER CHRONIC PAIN Status: Chronic (4) Hypertension Code(s): I10 - ESSENTIAL (PRIMARY) HYPERTENSION Status: Chronic - Plan PT/OT, out of bed/ambulate, DVT proph w/SCDs Monitor sodium.better now -: consult nephrology.Fluid restriction -: DC IVF -: am labs.home meds as below. HD stable * . Review of Systems - Review of Systems Constitutional: negative: fever, chills, sweats, weakness, malaise, other Respiratory: negative: Cough, Dry, Shortness of Breath, Hemoptysis, SOB with Excertion, Pleuritic Pain, Sputum, Wheezing Cardiovascular: negative: chest pain, palpitations, orthopnea, paroxysmal nocturnal dyspnea, edema, light headedness, other Gastrointestinal: negative: Nausea, Vomiting, Abdominal Pain, Diarrhea, Constipation, Melena, Hematochezia, Other Genitourinary: negative: Dysuria, Frequency, Incontinence, Hematuria, Retention , Other Musculoskeletal: negative: Neck Pain, Shoulder Pain, Arm Pain, Back Pain, Hand Pain, Leg Pain, Foot Pain, Other Neurological: negative: Weakness, Numbness, Incoordination, Change in Speech, Confusion, Seizures, Other - Medications/Allergies Allergies/Adverse Reactions: Allergies Allergy/AdvReac Type Severity Reaction Status Date / Time Xxrqrmk-Dik-Pko Reductase Allergy Verified 05/02/18 00:34 Inhibitor tramadol Allergy Verified 11/13/17 22:16 Medications: Current Medications Acetaminophen (Tylenol) 500 mg PO DAILY [facility] Last Admin: 05/02/18 08:05 Dose: Not Given Acetaminophen/Codeine Phosphate (Tylenol #3) 1 tab PO BID [facility] Last Admin: 05/02/18 08:06 Dose: 1 tab Hydrocodone Bitart/Acetaminophen ([place] 5/325) 1 tab PO Q4H PRN PRN Reason: Moderate Pain (4-6) Hydrocodone Bitart/Acetaminophen ([place] 5/325) 1 tab PO TID PRN PRN Reason: Severe Pain (7-10) Albuterol/Ipratropium (Duoneb) 3 ml NEB [id number] [facility] Last Admin: 05/02/18 14:57 Dose: 3 ml Aspirin (Ecotrin) 81 mg PO DAILY [facility] Last Admin: 05/02/18 08:07 Dose: 81 mg Calcium/Vitamin D (Caltrate 600 + Vit D) 1 tab PO DAILY [facility] Last Admin: 05/02/18 08:07 Dose: 1 tab Carbidopa/Levodopa (Sinemet Cr 50/200) 0.5 tab PO TID [facility] Last Admin: 05/02/18 14:12 Dose: 0.5 tab Duloxetine HCl (Cymbalta) 20 mg PO DAILY [facility] Last Admin: 05/02/18 10:35 Dose: 20 mg Enoxaparin Sodium (Lovenox) 40 mg SC 0900 [facility] Last Admin: 05/02/18 08:08 Dose: 40 mg Ergocalciferol (Drisdol) 1.25 mg PO DAILY [facility] Last Admin: 05/02/18 08:08 Dose: 1.25 mg Famotidine (Pepcid) 20 mg SLOW IVP Q12HR [facility] Last Admin: 05/02/18 10:35 Dose: 20 mg Ferrous Sulfate (Feosol) 325 mg PO DAILY [facility] Last Admin: 05/02/18 08:07 Dose: 325 mg Folic Acid (Folvite) 1 mg PO DAILY [facility] Last Admin: 05/02/18 08:07 Dose: 1 mg Gabapentin (Neurontin) 100 mg PO TID [facility] Last Admin: 05/02/18 14:12 Dose: 100 mg Guaifenesin (Mucinex) 600 mg PO Q12HR [facility] Last Admin: 05/02/18 08:07 Dose: 600 mg Hydrocortisone (Cortef) 10 mg PO DAILY [facility] Last Admin: 05/02/18 08:12 Dose: 10 mg Hydrocortisone (Cortef) 5 mg PO HS [facility] Metoprolol Tartrate (Lopressor) 25 mg PO BID [facility] Last Admin: 05/02/18 08:08 Dose: 25 mg Ondansetron HCl (Zofran Odt) 4 mg PO Q6H PRN PRN Reason: Nausea/Vomiting Pantoprazole Sodium (Protonix) 40 mg PO DAILY [facility] Last Admin: 05/02/18 08:07 Dose: 40 mg Polyethylene Glycol (Miralax) 17 gm PO DAILYPRN PRN PRN Reason: Constipation Pramipexole Dihydrochloride (Mirapex) 0.5 mg PO HS [facility] Risperidone (Risperidone) 0.25 mg PO HS [facility] Sodium Chloride (Flush - Normal Saline) 10 ml IVF Q12HR [facility] Last Admin: 05/02/18 08:13 Dose: 10 ml Sodium Chloride (Flush - Normal Saline) 10 ml IVF PRN PRN PRN Reason: Saline Flush Thiamine HCl (Thiamine) 100 mg PO DAILY [facility] Last Admin: 05/02/18 08:07 Dose: 100 mg
[2018-05-02] MEDS ORDERED: Pramipexole Di-HCl 0.25 MG TAB PO SCH (21:00)
[2018-05-02] MEDS ORDERED: risperiDONE 0.25 MG TAB PO SCH (21:00)
[2018-05-02] MEDS ORDERED: Hydrocortisone 10 mg Tablet PO SCH (21:00)
[2018-05-03 08:45] LABS: Anion Gap 18 mmol/L (10-20); BUN (Urea Nitrogen) 7 mg/dL (8.4-25.7); Calc. Creatinine Clearance 89 mL/min (70-130); Calcium 9.9 mg/dL (7.8-10.44); Carbon Dioxide 21 mmol/L (23-31); Chloride 97 mmol/L (98-107); Estimated GFR-MDRD Greater than 90; Glucose 80 mg/dL (83-110); Sodium 132 mmol/L (136-145)
[2018-05-03] MEDS: Acetaminophen/Codeine 30-300mg Tablet PO SCH (10:06)
[2018-05-03] MEDS: Calcium Carbonate + Vit D 1 TAB PO SCH (10:06)
[2018-05-03] MEDS: Ergocalciferol 1.25 MG(50,000 UNITS) CAP PO SCH (10:06)
[2018-05-03] MEDS: Carbidopa/Levodopa CR 50-200 mg Tablet PO SCH (10:07)
[2018-05-03] MEDS: Metoprolol Tartrate 25 MG TAB PO SCH (10:07)
[2018-05-03] MEDS: Folic Acid 1 MG TAB PO SCH (10:07)
[2018-05-03] MEDS: Ferrous Sulfate 325 MG TAB PO SCH (10:07)
[2018-05-03] MEDS: guaiFENesin ER 600 MG TAB PO SCH (10:08)
[2018-05-03] MEDS: Gabapentin 100 MG CAP PO SCH (10:08)
[2018-05-03] MEDS: Enoxaparin Sodium 40 MG/0.4 ML SYRINGE SC SCH (10:09)
[2018-05-03] MEDS: Acetaminophen 500 MG TAB PO SCH (10:09)
[2018-05-03] MEDS: Aspirin 81 mg Enteric Coated Tablet PO SCH (10:09)
[2018-05-03] MEDS: Famotidine/PF 20 mg/2ml Vial SLOW IVP SCH (10:10)
--- NOTE | 2018-05-03 11:21 | PRG ---
DATE OF SERVICE: 05/03/2018 SUBJECTIVE: A 72-year-old male being seen for hyponatremia. The patient denies any nausea, vomiting , or chest pain. PHYSICAL EXAMINATION: GENERAL: Patient is awake, alert. VITAL SIGNS: Afebrile, pulse 65, breathing 16, blood pressure 150/72. OBJECTIVE: See above. Awake, alert, in no acute distress. GENERAL APPEARANCE AND MENTAL STATUS: Fair. HEAD/NECK: Normocephalic. Atraumatic. EYES: EOMI. No deformity. EARS: Clear. No ulcers. NOSE: Intact. No lesions. MOUTH: Clear. No discharge. THROAT: Clear. No exudate. LUNGS: Clear. No crackles. CARDIAC: S1, S2. No rub. ABDOMEN: Benign. BS+. GENITALIA/RECTUM: Barnes absent. BACK/EXTREMITIES: Edema 0+ Ulcer- NEUROLOGICAL: Alert and motor intact. SKIN: Rash- Bruise- LYMPHATICS: Edema- Ulcer- LABORATORY DATA: Sodium 132, creatinine 0.76. ASSESSMENT AND RECOMMENDATIONS: 1. Stage 1 chronic kidney disease, stable. 2. Hypertension, stable. 3. Hyponatremia, resolved. Recommend 1500 mL fluid restriction, no indication for hypertonic saline .
--- NOTE | 2018-05-03 13:31 | DIS ---
DATE OF ADMISSION: 05/01/2018 DATE OF DISCHARGE: 05/03/2018 CONDITION AT THE TIME OF DISCHARGE: Stable and improved. DISCHARGE DISPOSITION: Back to [facility] where the patient is a permanent resident. DISCHARGE DIAGNOSES: 1. Hyponatremia, improved. 2. Chronic obstructive pulmonary disease. 3. Chronic back pain. 4. Hypertension. 5. History of Parkinson's disease. 6. History of adrenal insufficiency. DISCHARGE MEDICATIONS: Remain the same as admission medication. Please see admission H and P for de tail. No changes were made. INHOUSE CONSULTATION: Nephrology, Dr. Josue. PROCEDURES DONE IN THE HOSPITAL: Chest x-ray upon admission, which does not show any pleural effusio n or pulmonary edema and no infiltrates. HISTORY OF PRESENTING ILLNESS: Mr. Sepulveda is a very pleasant 72-year-old male with past medical his tory as outlined above who is a long term resident. He was sent by the primary care physician at long term for abnormal labs. His sodium was found to be low and he was referred to the ER. He wa s asymptomatic, however, a little bit lethargic and more fatigued. His blood work showed a sodium of 124, potassium 4.6, chloride 91, BUN 4, creatinine 0.78 and osmolality of 258. Urinalysis was negat dolly for UTI. Chest x-ray was negative for any evidence of infection. He was admitted for further ev aluation and correction of hyponatremia. Please see admission history and physical dictated by Dr. José shannon for further detail. HOSPITAL COURSE: The patient's sodium was followed. Initially, he was started on IV fluids and Neph rology was consulted. He was also put on free water restriction. Sodium was monitored daily and it improved from 124-138 over the course of almost 48 hours. The patient was asymptomatic. OT, PT was consulted and as per their recommendations, OT, PT has been arranged for [facility]. As of this morning, he is back to his baseline and will be discharged back to long term. He has n o new complaints. He will get a repeat BMP checked in 2 days and follow up with Nephrology as an out patient as well as with primary care physician. He was seen and examined prior to discharge. PHYSICAL EXAMINATION: VITAL SIGNS: This morning, temperature 97.7, pulse of 71, respirations 16, saturating 94% on room ai r, blood pressure 167/76. GENERAL: No acute distress, awake, alert, oriented x3. CHEST: Clear to auscultation without any wheezing, rales or rhonchi. Rate and rhythm is regular wit hout any murmur, rubs or gallops. ABDOMEN: Soft, nontender, nondistended with positive bowel sounds. LABORATORY DATA: Sodium this morning is 132, it was 124 upon presentation. 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 Urine osmolality is slightly low at 248. Urine sodium 68.
[2018-05-03 15:11] VITALS: BP 136/78; TEMP 97.6
== END 2018-05-03 14:47 | DRG 644 ==
LOC: ERS 15:41 → T4-B 23:50
PROVIDERS: ADMIT Internal Medicine; ATTEND Internal Medicine
DX: E22.2 Syndrome of inappropriate secretion of antidiuretic hormone (principal); E27.40 Unspecified adrenocortical insufficiency; G20 Parkinson's disease; D64.9 Anemia, unspecified; J44.9 Chronic obstructive pulmonary disease, unspecified; I25.10 Atherosclerotic heart disease of native coronary artery without angina pectoris; I12.9 Hypertensive chronic kidney disease with stage 1 through stage 4 chronic kidney disease, or unspecified chronic kidney disease; N18.1 Chronic kidney disease, stage 1; M54.9 Dorsalgia, unspecified; G89.29 Other chronic pain; T43.225A Adverse effect of selective serotonin reuptake inhibitors, initial encounter; Z79.82 Long term (current) use of aspirin; Z79.899 Other long term (current) drug therapy; Z95.1 Presence of aortocoronary bypass graft; Z90.49 Acquired absence of other specified parts of digestive tract
CPT/HCPCS: 36415; 71045; 80048; 80053; 81003; 83930; 83935; 84300; 85025; 94640; 96360; 96361; A4216; G8978-GP-CK; G8979-GP-CJ; J1650; J7620; S0028

== ENCOUNTER 2018-05-15 16:16 | Inpatient (IN) | payer MEDICARE, MEDICAID ==
[2018-05-15 16:41] LABS: #Basophils 0.1 thou/uL (0.0-0.2); #Eosinphils 0.3 thou/uL (0.0-0.7); #Lymphocytes 2.5 thou/uL (1.20-3.40); #Monocytes 0.7 thou/uL (0.11-0.59); #Neutrophils 4.3 thou/uL (1.40-6.50); %Basophils 0.8 % (0.0-1.0); %Eosinophils 3.4 % (0.0-10.0); %Lymphocytes 31.6 % (21.0-51.0); %Monocytes 8.9 % (0.0-10.0); %Neutrophils 55.3 % (42.0-75.0); Hemoglobin 12.5 g/dL (14.0-18.0); Mean Corpuscular HGB CONC 34.9 g/dL (32.0-36.0); Mean Corpuscular Hemoglobin 30.5 pg (27.0-31.0); Mean Corpuscular Volume 87.3 fL (78.0-98.0); Mean Platelet Volume 5.5 fL (7.4-10.4); Platelet Count 337 thou/uL (130-400); RBC Distribution Width 12.6 % (11.5-14.5); Red Blood Cell (RBC) Count 4.12 mill/uL (4.70-6.10); White Blood Cell (WBC) Count 7.8 thou/uL (4.8-10.8)
[2018-05-15 17:01] LABS: ALT (SGPT) Less than 7 U/L (8-55); AST (SGOT) 13 U/L (5-34); Albumin 4.7 g/dL (3.4-4.8); Alkaline Phosphatase 85 U/L (40-150); Anion Gap 12 mmol/L (10-20); BUN (Urea Nitrogen) 8 mg/dL (8.4-25.7); Bilirubin, Total 0.5 mg/dL (0.2-1.2); Calc. Creatinine Clearance 0 mL/min (70-130); Calcium 9.6 mg/dL (7.8-10.44); Carbon Dioxide 24 mmol/L (23-31); Chloride 91 mmol/L (98-107); Estimated GFR-MDRD 77; Globulin 3.2 g/dL (2.4-3.5); Glucose 118 mg/dL (83-110); Potassium 4.3 mmol/L (3.5-5.1); Protein, Total 7.9 g/dL (5.8-8.1); Sodium 123 mmol/L (136-145)
[2018-05-15 18:53] LABS: Bilirubin Negative (Negative); Blood, Urine Negative (Negative); Clarity CLEAR (Clear); Glucose, Urine (Dipstick) Negative (Negative); Leukocyte Negative (Negative); Nitrite Negative (Negative); Protein, Urine (Dipstick) Negative (Neg-Trace); Specific Gravity, Urine 1.003 (1.002-1.036); pH, Urine 6.5 (5.0-9.0)
[2018-05-15] MEDS ORDERED: Metoprolol Tartrate 5 MG/5 ML VIAL ONE (18:59)
[2018-05-15] MEDS ORDERED: Acetaminophen 325 MG TAB PO PRN (20:16)
[2018-05-15 20:55] LABS: Thyroid Stimulating Hormone 1.1502 uIU/mL (0.35-4.94)
--- NOTE | 2018-05-15 21:56 | HP ---
CHIEF COMPLAINT: Abnormal labs. HISTORY OF PRESENT ILLNESS: Patient is a very pleasant 72-year-old male who resides in a nursing [facility], who was on fluid restriction and was told that he could drink anything, he wanted yesterday. Radha ent stated that he was told by the nurse that he can drink as much as fluid as he wanted. Patient de nies taking excessive fluids. He stated that he took and whatever was provided to him with his meals . Patient stated that this morning, they thiago his labs and in the evening, they told him he had to c ome into the ER because of abnormal laboratory values. Patient currently denies any symptoms, any he adaches, blurry vision, any nausea, vomiting, any diarrhea, any abdominal pain, any shortness of evonne th, any chest pain. Denies any numbness or tingling sensation. Patient states that he feels well. Patient denies drinking excessive water. He stated that he only drank and ate what was provided to vinicius im on his trays. PAST MEDICAL HISTORY: Hypertension, Parkinson, cataracts, history of SIADH, and alcohol abuse. PAST SURGICAL HISTORY: He had a hernia repair, appendectomy. He had a CABG in 2004, tonsillectomy, left hip repair a year ago. FAMILY HISTORY: Sister has a history of cancer, she was smoker. ALLERGIES: He is allergic to TRAMADOL and STATINS. MEDICATIONS: As of the following: Patient takes aspirin 81 mg daily, calcium carbonate 1 p.o. daily , carbidopa/levodopa 3 times a day, Colace once daily, ferrous sulfate 325 daily, folic acid once alida ly, gabapentin 100 mg b.i.d., hydrocortisone twice a day, losartan 50 mg daily. He takes Tylenol wit h codeine twice a day. He takes pantoprazole daily, pramipexole 0.5 mg at bedtime, vitamin B1 once a day, Cymbalta once a day 30 mg, MiraLax 17 grams p.r.n., metoprolol 25 mg p.o. b.i.d. REVIEW OF SYSTEMS: Denies all negative except for the ones mentioned above in the HPI. SOCIAL HISTORY: He does have a history of smoking, quit about 28 years ago. Alcohol use. He used t o be an alcohol user; however, currently denies. Drugs, he denies. He currently lives in a group home. He has been twice. His surrogate is Jane Roberts, which is his friend. Her number is [phone]. CODE STATUS: FULL. LABORATORY DATA: As of the following, WBCs of 7.8, hemoglobin of 12.5, hematocrit of 36.0, platelets of 337. Sodium of 123, potassium of 4.3, BUN of 8, creatinine 0.96. His AST is 13, ALT 7. LFTs ar e normal. Urine looked normal. Chest x-ray that was not done. PHYSICAL EXAMINATION: VITAL SIGNS: Temperature of 98.2, blood pressure 154/84, respirations 16, 99% on room air, 63 pulse. GENERAL: He is awake, alert, oriented x3, does not appear in any distress. HEENT: Normocephalic, atraumatic. NECK: No lymphadenopathy noted. CARDIOVASCULAR: S1, S2 present. No murmurs, rubs, or gallops. LUNGS: Clear to auscultation, rhonchi, or wheezes noted. ABDOMEN: Soft, nontender. Bowel sounds are present x2. EXTREMITIES: No edema. Pedal pulses are present x2. NEUROLOGIC: No focal deficits noted. SKIN: No cuts or lesions noted. ASSESSMENT AND PLAN: Patient is a very pleasant 72-year-old male who presents to the hospital for ab normal laboratories: 1. Hyponatremia. Patient apparently comes with a diagnosis syndrome of inappropriate antidiuretic h ormone, however, and was told that he was off the fluid restriction by nursing staff yesterday. I am not sure what the thought process was in that. We will call group home in the morning. For right now, we will put patient on fluid restriction of 1200 mL for the day. We will also get serum osmola lity, urine osmolality, and urine sodium. I do not think patient clinically does not appear to be de hydrated. I will avoid starting patient on IV hydration. Patient does have a history of chronic hyp onatremia and currently is asymptomatic. We will not provide any other additional measures to improv e the sodium quickly. We will also consult Nephrology. Patient is on hydrocortisone, I am not sure why. Patient is also on duloxetine, which can also cause hyponatremia. 2. Parkinson's. We will continue his levodopa and carbidopa. 3. History of neuropathy. We will continue his medications. 4. History of hypertension. We will continue his blood pressure medications. 5. Deep venous thrombosis prophylaxis. We will put on patient on subcutaneous heparin.
[2018-05-15 22:26] VITALS: BMI 24.4
[2018-05-16] MEDS ORDERED: Labetalol HCl 100 MG/20 ML VIAL SLOW IVP PRN (00:08)
[2018-05-16 04:51] LABS: #Basophils 0.1 thou/uL (0.0-0.2); #Eosinphils 0.2 thou/uL (0.0-0.7); #Lymphocytes 3.6 thou/uL (1.20-3.40); #Monocytes 0.9 thou/uL (0.11-0.59); #Neutrophils 4.9 thou/uL (1.40-6.50); %Basophils 1.1 % (0.0-1.0); %Lymphocytes 37.1 % (21.0-51.0); %Monocytes 8.9 % (0.0-10.0); Hemoglobin 11.8 g/dL (14.0-18.0); Mean Corpuscular HGB CONC 35.4 g/dL (32.0-36.0); Mean Corpuscular Hemoglobin 30.6 pg (27.0-31.0); Mean Corpuscular Volume 86.4 fL (78.0-98.0); Mean Platelet Volume 5.4 fL (7.4-10.4); Platelet Count 324 thou/uL (130-400); RBC Distribution Width 12.6 % (11.5-14.5); Red Blood Cell (RBC) Count 3.86 mill/uL (4.70-6.10); White Blood Cell (WBC) Count 9.6 thou/uL (4.8-10.8)
[2018-05-16 04:59] LABS: Anion Gap 12 mmol/L (10-20); BUN (Urea Nitrogen) 7 mg/dL (8.4-25.7); Calc. Creatinine Clearance 85 mL/min (70-130); Calcium 9.2 mg/dL (7.8-10.44); Carbon Dioxide 25 mmol/L (23-31); Chloride 94 mmol/L (98-107); Estimated GFR-MDRD Greater than 90; Glucose 85 mg/dL (83-110); Potassium 3.9 mmol/L (3.5-5.1); Sodium 127 mmol/L (136-145)
[2018-05-16] MEDS ORDERED: Polyethylene Glycol 3350 17 GM Packet PO PRN (07:44)
[2018-05-16] MEDS ORDERED: HYDROcodone/Acetaminophen 5/325 mg Tablet PO PRN (07:44)
[2018-05-16] MEDS: Carbidopa/Levodopa 25-100 mg Tablet PO SCH ×3 (09:50→20:38)
[2018-05-16] MEDS: DULoxetine 30 MG CAP PO SCH (09:50)
[2018-05-16] MEDS: Metoprolol Tartrate 25 MG TAB PO SCH ×2 (09:50→20:40)
[2018-05-16] MEDS: Gabapentin 100 MG CAP PO SCH ×2 (09:50→20:38)
[2018-05-16] MEDS: Hydrocortisone 10 mg Tablet PO SCH ×2 (09:53→20:37)
[2018-05-16] MEDS: Pramipexole Di-HCl 0.25 MG TAB PO SCH (20:37)
[2018-05-16] MEDS ORDERED: PRAMIPEXOLE DI HCL 0.5 MG PO SCH (21:00)
--- NOTE | 2018-05-16 23:27 | CON ---
DATE OF CONSULTATION: 05/16/2018 CONSULTING PHYSICIAN: Sindi Banks M.D. REQUESTING PHYSICIAN: Sangita Ruiz M.D. REASON FOR CONSULTATION: Hyponatremia. IMPRESSION: Hyponatremia. This is likely in the context of polydipsia. PLAN: 1. Restrict the amount of free water access to this patient. 2. Increase the protein intake; therefore, we will change this patient's diet to regular diet with h igh protein in the way of animal meat. 3. Monitor the sodium level as the response to these conservative measures. HISTORY OF PRESENT ILLNESS: History is that of a 72-year-old gentleman, snf resident who wa s sent over with a low sodium. The patient could not offer much of any history, but from all indicat ion based on the urine chemistry and the blood chemistry, this is likely dilutional hyponatremia in t he context of excessive free water intake. As a result of the low sodium, decision has been taken to involve Renal in the management of this case. PAST MEDICAL HISTORY: Significant for hypertension, Parkinson disease, cataracts, alcohol abuse. FAMILY HISTORY: Significant for malignancy. ALLERGIES: TRAMADOL and CHOLESTEROL MEDICATIONS. MEDICATIONS: Medications reviewed and as documented on [employer]. REVIEW OF SYSTEMS: Highly limited given the mental status of this patient. PHYSICAL EXAMINATION: GENERAL: The patient was found to be sleepy, but arousable and noted with the following vital signs. VITAL SIGNS: Afebrile with temperature 98, pulse 71, respiratory rate of 16, O2 sat 94% with blood p ressure 142/85. HEENT: Unremarkable. Moist oral mucosa. No conjunctival injection or icterus. NECK: Supple. CARDIOVASCULAR SYSTEM: First and second heart sounds were heard. RESPIRATORY SYSTEM: Clear to auscultation. DIGESTIVE SYSTEM: Revealed a benign abdomen with positive bowel sounds. EXTREMITIES: No peripheral edema. SKIN: No new gross rash. LYMPHATICS: No peripheral lymphadenopathy. SUMMARY: This is a 72-year-old gentleman with hyponatremia in the context of excessive free water in take. Thank you for this consultation. We will follow with you.
[2018-05-17 05:49] LABS: Anion Gap 11 mmol/L (10-20); BUN (Urea Nitrogen) 11 mg/dL (8.4-25.7); Calc. Creatinine Clearance 83 mL/min (70-130); Calcium 9.2 mg/dL (7.8-10.44); Carbon Dioxide 24 mmol/L (23-31); Chloride 95 mmol/L (98-107); Estimated GFR-MDRD Greater than 90; Glucose 103 mg/dL (83-110); Potassium 4.4 mmol/L (3.5-5.1); Sodium 126 mmol/L (136-145)
[2018-05-17] MEDS: Metoprolol Tartrate 25 MG TAB PO SCH ×2 (09:51→20:14)
[2018-05-17] MEDS: DULoxetine 30 MG CAP PO SCH (09:51)
[2018-05-17] MEDS: Gabapentin 100 MG CAP PO SCH ×2 (09:51→20:14)
[2018-05-17] MEDS: Carbidopa/Levodopa 25-100 mg Tablet PO SCH ×3 (09:51→20:14)
[2018-05-17] MEDS: Hydrocortisone 10 mg Tablet PO SCH ×2 (09:51→20:20)
[2018-05-17] MEDS ORDERED: Tolvaptan 15 MG TAB PO SCH (15:45)
--- NOTE | 2018-05-17 19:23 | PDOC.PN ---
- Subjective Encounter Start Date: 05/16/18 Encounter Start Time: 10:30 Subjective: pt up in bed no complains - Objective Resuscitation Status: Resuscitation Status FULL:Full Resuscitation Vital Signs & Weight: Vital Signs (12 hours) Temp Pulse Resp BP Pulse Ox 05/17/18 18:38 98.6 F 85 20 130/68 96 05/17/18 16:10 98.0 F 66 16 97 05/17/18 15:17 98.0 F 66 16 147/67 H 97 05/17/18 11:23 97.7 F 63 17 130/68 93 L 05/17/18 08:05 98.0 F 65 22 H 05/17/18 07:57 98.0 F 65 22 H 179/84 H 99 Weight Weight 154 lb 8 oz I&O: 05/16/18 05/17/18 05/18/18 06:59 06:59 06:59 Intake Total 100 600 600 Output Total 100 Balance 100 600 500 Result Diagrams: 05/16/18 04:37 05/17/18 04:32 Phys Exam - Physical Examination Neck: no nodes, no JVD, supple, full ROM Respiratory: no wheezing, no rales, no rhonchi, wheezing present, clear to auscultation bilateral Cardiovascular: RRR, no significant murmur, no rub, gallop, irregular Gastrointestinal: soft, non-tender, no distention, positive bowel sounds Musculoskeletal: no edema, pulses present, edema present Dx/Plan (1) Hyponatremia Code(s): E87.1 - HYPO-OSMOLALITY AND HYPONATREMIA Status: Acute (2) Hypertension Code(s): I10 - ESSENTIAL (PRIMARY) HYPERTENSION Status: Chronic (3) Physical deconditioning Code(s): R53.81 - OTHER MALAISE Status: Acute - Plan pt's sodium is still low, he is asymptomatic -: will await recommedation from nephro. Possible SIADH vs polydipsia * . Review of Systems - Review of Systems ENT: negative: Ear Pain, Ear Discharge, Nose Pain, Nose Discharge, Nose Congestion, Mouth Pain, Mouth Swelling, Throat Pain, Throat Swelling, Other Respiratory: negative: Cough, Dry, Shortness of Breath, Hemoptysis, SOB with Excertion, Pleuritic Pain, Sputum, Wheezing Cardiovascular: negative: chest pain, palpitations, orthopnea, paroxysmal nocturnal dyspnea, edema, light headedness, other - Medications/Allergies Allergies/Adverse Reactions: Allergies Allergy/AdvReac Type Severity Reaction Status Date / Time Vpuxuoe-Slx-Nwy Reductase Allergy Verified 05/15/18 21:54 Inhibitor tramadol Allergy Verified 05/15/18 21:54 Medications: Current Medications Acetaminophen (Tylenol) 650 mg PO Q4H PRN PRN Reason: Headache/Fever or Pain Hydrocodone Bitart/Acetaminophen ([place] 5/325) 1 tab PO TID PRN PRN Reason: Severe Pain (7-10) Aspirin (Aspirin Chewable) 81 mg PO DAILY [facility] Last Admin: 05/17/18 09:50 Dose: 81 mg Carbidopa/Levodopa (Sinemet 25-100) 1 tab PO TID [facility] Last Admin: 05/17/18 16:08 Dose: 1 tab Duloxetine HCl (Cymbalta) 30 mg PO DAILY [facility] Last Admin: 05/17/18 09:51 Dose: 30 mg Gabapentin (Neurontin) 100 mg PO BID [facility] Last Admin: 05/17/18 09:51 Dose: 100 mg Hydrocortisone (Cortef) 10 mg PO BID [facility] Last Admin: 05/17/18 09:51 Dose: 10 mg Labetalol HCl (Normodyne) 10 mg SLOW IVP Q4H PRN PRN Reason: SBP Greater Than 170 Last Admin: 05/16/18 00:31 Dose: 10 mg Metoprolol Tartrate (Lopressor) 25 mg PO BID [facility] Last Admin: 05/17/18 09:51 Dose: 25 mg Pantoprazole Sodium (Protonix) 40 mg PO DAILY [facility] Last Admin: 05/17/18 09:51 Dose: 40 mg Polyethylene Glycol (Miralax) 17 gm PO DAILY PRN PRN Reason: Constipation Pramipexole Dihydrochloride (Mirapex) 0.5 mg PO HS [facility] Last Admin: 05/16/18 20:37 Dose: 0.5 mg Sodium Chloride (Flush - Normal Saline) 10 ml IVF Q12HR [facility] Last Admin: 05/17/18 09:51 Dose: 10 ml Sodium Chloride (Flush - Normal Saline) 10 ml IVF PRN PRN PRN Reason: Saline Flush Thiamine HCl (Thiamine) 100 mg PO DAILY [facility] Last Admin: 05/17/18 09:51 Dose: 100 mg Tolvaptan (Samsca) 15 mg PO DAILY [facility]
--- NOTE | 2018-05-17 19:25 | PDOC.PN ---
- Subjective Encounter Start Date: 05/17/18 Encounter Start Time: 11:30 Subjective: pt up in bed no complains - Objective Resuscitation Status: Resuscitation Status FULL:Full Resuscitation Vital Signs & Weight: Vital Signs (12 hours) Temp Pulse Resp BP Pulse Ox 05/17/18 18:38 98.6 F 85 20 130/68 96 05/17/18 16:10 98.0 F 66 16 97 05/17/18 15:17 98.0 F 66 16 147/67 H 97 05/17/18 11:23 97.7 F 63 17 130/68 93 L 05/17/18 08:05 98.0 F 65 22 H 05/17/18 07:57 98.0 F 65 22 H 179/84 H 99 Weight Weight 154 lb 8 oz I&O: 05/16/18 05/17/18 05/18/18 06:59 06:59 06:59 Intake Total 100 600 600 Output Total 100 Balance 100 600 500 Result Diagrams: 05/16/18 04:37 05/17/18 04:32 Phys Exam - Physical Examination Neck: no nodes, no JVD, supple, full ROM Respiratory: no wheezing, no rales, no rhonchi, wheezing present, clear to auscultation bilateral Cardiovascular: RRR, no significant murmur, no rub, gallop, irregular Dx/Plan (1) Hyponatremia Code(s): E87.1 - HYPO-OSMOLALITY AND HYPONATREMIA Status: Acute (2) Hypertension Code(s): I10 - ESSENTIAL (PRIMARY) HYPERTENSION Status: Chronic (3) Physical deconditioning Code(s): R53.81 - OTHER MALAISE Status: Acute - Plan spoke with nephro will reorder labs -: if siadh confirmed will start pt on tolvaptin * . Review of Systems - Review of Systems ENT: negative: Ear Pain, Ear Discharge, Nose Pain, Nose Discharge, Nose Congestion, Mouth Pain, Mouth Swelling, Throat Pain, Throat Swelling, Other Cardiovascular: negative: chest pain, palpitations, orthopnea, paroxysmal nocturnal dyspnea, edema, light headedness, other - Medications/Allergies Allergies/Adverse Reactions: Allergies Allergy/AdvReac Type Severity Reaction Status Date / Time [id number]-[id number]-Pxm Reductase Allergy Verified 05/15/18 21:54 Inhibitor tramadol Allergy Verified 05/15/18 21:54 Medications: Current Medications Acetaminophen (Tylenol) 650 mg PO Q4H PRN PRN Reason: Headache/Fever or Pain Hydrocodone Bitart/Acetaminophen ([place] 5/325) 1 tab PO TID PRN PRN Reason: Severe Pain (7-10) Aspirin (Aspirin Chewable) 81 mg PO DAILY [facility] Last Admin: 05/17/18 09:50 Dose: 81 mg Carbidopa/Levodopa (Sinemet 25-100) 1 tab PO TID [facility] Last Admin: 05/17/18 16:08 Dose: 1 tab Duloxetine HCl (Cymbalta) 30 mg PO DAILY [facility] Last Admin: 05/17/18 09:51 Dose: 30 mg Gabapentin (Neurontin) 100 mg PO BID [facility] Last Admin: 05/17/18 09:51 Dose: 100 mg Hydrocortisone (Cortef) 10 mg PO BID [facility] Last Admin: 05/17/18 09:51 Dose: 10 mg Labetalol HCl (Normodyne) 10 mg SLOW IVP Q4H PRN PRN Reason: SBP Greater Than 170 Last Admin: 05/16/18 00:31 Dose: 10 mg Metoprolol Tartrate (Lopressor) 25 mg PO BID [facility] Last Admin: 05/17/18 09:51 Dose: 25 mg Pantoprazole Sodium (Protonix) 40 mg PO DAILY [facility] Last Admin: 05/17/18 09:51 Dose: 40 mg Polyethylene Glycol (Miralax) 17 gm PO DAILY PRN PRN Reason: Constipation Pramipexole Dihydrochloride (Mirapex) 0.5 mg PO HS [facility] Last Admin: 05/16/18 20:37 Dose: 0.5 mg Sodium Chloride (Flush - Normal Saline) 10 ml IVF Q12HR [facility] Last Admin: 05/17/18 09:51 Dose: 10 ml Sodium Chloride (Flush - Normal Saline) 10 ml IVF PRN PRN PRN Reason: Saline Flush Thiamine HCl (Thiamine) 100 mg PO DAILY [facility] Last Admin: 05/17/18 09:51 Dose: 100 mg Tolvaptan (Samsca) 15 mg PO DAILY [facility]
[2018-05-17] MEDS: Pramipexole Di-HCl 0.25 MG TAB PO SCH (20:20)
--- NOTE | 2018-05-17 23:56 | PRG ---
DATE OF SERVICE: 05/17/2018 The patient was seen and examined, noted with the following vital signs. PHYSICAL EXAMINATION: VITAL SIGNS: Afebrile with temperature 98.6, pulse 85, respiratory rate 20, O2 sat 96% with blood pr essure 130/68. HEENT: Unremarkable. CARDIOVASCULAR: First and second heart sounds were heard. RESPIRATORY: Clear to auscultation. DIGESTIVE: Revealed a benign abdomen, positive bowel sounds. EXTREMITIES: No peripheral edema. SKIN: No new gross rash. LYMPHATICS: No peripheral lymphadenopathy. LABORATORY INVESTIGATION: Showed sodium that has gone down to 126. IMPRESSION: 1. Hyponatremia. 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 However, the hyponatremia is not responding to the conservative management of psychogenic polydipsia being ini tiated. 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 2. SIADH. 3. Hypertension. PLAN: 1. Given the confirmed diagnosis of SIADH, we will continue with fluid restriction; however, I will increase his meat intake in this patient. 2. In addition to this, we medically ADH Vaprisol with the goal of sodium not to rise more roc n 1 mEq every 2 hours. Therefore, we will keep very close monitoring of the sodium level in this pat ient. 3. Further management to be dependent on the clinical course.
[2018-05-18 06:15] LABS: Anion Gap 14 mmol/L (10-20); BUN (Urea Nitrogen) 13 mg/dL (8.4-25.7); Calc. Creatinine Clearance 87 mL/min (70-130); Calcium 9.5 mg/dL (7.8-10.44); Carbon Dioxide 24 mmol/L (23-31); Chloride 99 mmol/L (98-107); Estimated GFR-MDRD Greater than 90; Glucose 85 mg/dL (83-110); Potassium 4.5 mmol/L (3.5-5.1); Sodium 132 mmol/L (136-145)
[2018-05-18] MEDS: Metoprolol Tartrate 25 MG TAB PO SCH (08:25)
[2018-05-18] MEDS: DULoxetine 30 MG CAP PO SCH (08:25)
[2018-05-18] MEDS: Hydrocortisone 10 mg Tablet PO SCH (08:25)
[2018-05-18] MEDS: Carbidopa/Levodopa 25-100 mg Tablet PO SCH (08:26)
[2018-05-18] MEDS: Gabapentin 100 MG CAP PO SCH (08:27)
[2018-05-18] MEDS ORDERED: Tolvaptan 15 MG TAB PO SCH (09:00)
[2018-05-18 11:40] VITALS: TEMP 98.3
[2018-05-18 12:27] VITALS: BP 134/71
== END 2018-05-18 13:28 | disposition home or self-care (01) | DRG 645 ==
LOC: ERS 16:16 → 2SW 21:05 → OBSVTOIN 05-17 15:48
PROVIDERS: ADMIT Internal Medicine; ATTEND Internal Medicine
DX: E22.2 Syndrome of inappropriate secretion of antidiuretic hormone (principal); I10 Essential (primary) hypertension; G20 Parkinson's disease; F10.10 Alcohol abuse, uncomplicated; Z87.891 Personal history of nicotine dependence; G62.9 Polyneuropathy, unspecified; Z95.1 Presence of aortocoronary bypass graft
CPT/HCPCS: 36415; 80048; 80053; 81003; 82533; 83930; 83935; 84300; 84443; 85025; 93005; 96374; A4216; G8978-GP-CJ; G8979-GP-CJ; G8980-GP-CJ

== ENCOUNTER 2019-04-18 04:40 | Inpatient (IN) | payer MEDICARE, OTHER ==
[2019-04-18 06:03] LABS: Hemoglobin 12.8 g/dL (14.0-18.0); Mean Corpuscular HGB CONC 31.3 g/dL (32.0-36.0); Mean Corpuscular Volume 89.3 fL (78.0-98.0); Mean Platelet Volume 6.2 fL (7.4-10.4); Platelet Count 340 thou/uL (130-400); RBC Distribution Width 12.2 % (11.5-14.5); Red Blood Cell (RBC) Count 4.59 mill/uL (4.70-6.10); White Blood Cell (WBC) Count 18.3 thou/uL (4.8-10.8)
[2019-04-18] MEDS ORDERED: Pantoprazole 40 MG VIAL ONE (06:10)
[2019-04-18 06:15] LABS: ALT (SGPT) 11 U/L (8-55); AST (SGOT) 20 U/L (5-34); Albumin 4.7 g/dL (3.4-4.8); Alkaline Phosphatase 55 U/L (40-150); Anion Gap 16 mmol/L (10-20); BUN (Urea Nitrogen) 22 mg/dL (8.4-25.7); Bilirubin, Total 1.4 mg/dL (0.2-1.2); Calc. Creatinine Clearance 0 mL/min (70-130); Calcium 10.3 mg/dL (7.8-10.44); Carbon Dioxide 23 mmol/L (23-31); Chloride 92 mmol/L (98-107); Estimated GFR-MDRD 47; Globulin 3.6 g/dL (2.4-3.5); Glucose 93 mg/dL (83-110); Potassium 5.5 mmol/L (3.5-5.1); Protein, Total 8.3 g/dL (5.8-8.1); Sodium 125 mmol/L (136-145)
[2019-04-18 06:18] LABS: Band 7 % (5-11); Lymphocytes 8 % (21-51); MDiff Complete? YES; Monocytes 9 % (0-10); Neutrophil 76 % (42-75); Platelet Morphology Comment Appears Adequate
--- NOTE | 2019-04-18 06:58 | CT ---
CT HEAD NONCONTRAST: CLINICAL HISTORY: Altered mental status. COMPARISON: Reference made to . FINDINGS: Mild global atrophy with compensatory dilatation of the ventricular system is present. There is mild to moderate chronic microvascular ischemic disease of the cerebral white matter. There is redemonst ration of bilateral hypodensities at each basal ganglia, indicative of chronic lacunar infarctions. No acute intracranial hemorrhage or mass effect. No midline shift. The paranasal sinuses are clear. IMPRESSION: 1. No acute intracranial hemorrhage or mass effect. 2. Parenchymal atrophy and microvascular ischemic disease of the cerebral white matter. POS: [facility]
[2019-04-18 07:02] LABS: Bilirubin Negative (Negative); Blood, Urine Negative (Negative); Clarity Clear (Clear); Glucose, Urine (Dipstick) Normal (Negative); Leukocyte Negative Leu/uL (Negative); Nitrite Negative (Negative); Protein, Urine (Dipstick) 10 mg/dL (Neg-Trace)
[2019-04-18] MEDS ORDERED: Acetaminophen 325 MG TAB PO PRN (07:37)
[2019-04-18] MEDS ORDERED: Ondansetron ODT 4 MG TAB PO PRN (07:37)
--- NOTE | 2019-04-18 07:54 | RAD ---
PORTABLE CHEST ONE VIEW: 04/18/2019 5:22 a.m. HISTORY: Altered mental status. COMPARISON: 05/01/2018 FINDINGS: Changes of median sternotomy are again seen. The heart size is normal. The aorta is tortuous. No l obar consolidation, pneumothoraces, anuj pulmonary edema, or large effusions are seen. IMPRESSION: No acute process. POS: [facility]
[2019-04-18] MEDS: Sodium Chloride 0.9% 1,000 ML IV SCH ×2 (08:23→15:49)
--- NOTE | 2019-04-18 08:30 | HP ---
PRIMARY CARE PHYSICIAN: Mik Rosen MD The patient is referred to the [facility] by [facility]. The patient was transferred because of confusion. In the emergency room, he is oriented to person only, answers no questions appropriately. He has apparently been found to have fever, leukocytosis, acute kidney failure, and heme-positive stools. He is able to give me no other history. REVIEW OF SYSTEMS: Unobtainable due to the patient's confusion. PAST MEDICAL HISTORY: He has a past medical history of hypertension; Parkinson disease; hyponatremia, thought due to SIADH; alcohol abuse in the past; history of anxiety; chronic pain; gastroesophageal reflux disease. CURRENT MEDICATIONS: 1. Aspirin 81 mg a day. 2. Cymbalta 20 mg a day. 3. Pepcid 20 mg at bedtime. 4. Ferrous sulfate. 5. Losartan 50 mg a day. 6. Pramipexole 0.5 mg at bedtime. 7. Protonix 20 mg a day. 8. Gabapentin 100 mg twice a day. 9. Hydrocodone 10 mg 4 times times a day. 10. Metoprolol 25 mg twice a day. 11. Sinemet 25/100 three times a day. 12. Hydrocortisone twice a day. ALLERGIES: NO MEDICAL ALLERGIES LISTED. PAST SURGICAL HISTORY: Hernia repair, appendectomy, coronary artery bypass graft, tonsillectomy, and left hip surgery. FAMILY HISTORY: Sister has a history of cancer. She was a smoker. SOCIAL HISTORY: Resident of [facility]. Alcohol abuse in the past. Cigarette abuse in the distant past. He is . There are no decision makers present. He will be full code based on inability to make decisions for himself at the time. PHYSICAL EXAMINATION: VITAL SIGNS: Blood pressure 176/86, pulse 79, respirations 20, temperature 100 to 100.7, and O2 sat high 90s on room air. GENERAL: This patient is easily aroused. He knows his name. He gives no other reasonable information. Skin turgor is poor. HEENT: Examination of his eyes reveals pupils equal and round. Extraocular movements are intact. Sclerae are white. Tympanic membranes are clear. Nose is clear. Oral mucous membranes are dry. NECK: No jugular venous distention, adenopathy or thyromegaly. CHEST: Clear to auscultation and percussion. HEART: Regular rate and rhythm. First and second heart sounds are clear. No murmurs are appreciated. ABDOMEN: Soft. Bowel sounds are normal. There is no hepatosplenomegaly. No mass. No rebound. RECTAL: Rectal done in the emergency room was unrevealing. Stool was positive for occult blood. EXTREMITIES: No cyanosis, clubbing or edema. Pulses; carotid, radial, femoral and dorsalis pedis pulses palpable. SKIN: Warm and dry. LYMPHATIC SURVEY: No tender or swollen lymph nodes in the axilla, inguinal and cervical area. NEUROLOGICAL: Cranial nerves 2 through 12 are intact, moves all extremities. No obvious focal weakness. DIAGNOSTIC DATA: EKG, regular sinus rhythm, PACs, first-degree AV block, no acute ST-T abnormality reviewed by me. Chest x-ray, no cardiomegaly, CHF or infiltrate. Median sternotomy changes, reviewed by me. LABORATORY DATA: White count 18.3, hemoglobin 12.8, and platelet count 340,000. Lactic acid 1.1. Comp metabolic profile reveals total bilirubin of 1.4, creatinine 1.48, potassium 5.5, and sodium 125. ADMITTING DIAGNOSES: 1. Encephalopathy. 2. Hyponatremia. 3. Hyperkalemia. 4. Acute kidney injury. 5. Hemoccult-positive stools. 6. Coronary artery disease. 7. Parkinson disease. 8. Hypertension. 9. History of syndrome of inappropriate antidiuretic hormone. PLAN: Urinalysis is pending. Chest x-ray is clear. The patient will be started on normal saline. Serial basic metabolic profiles will be monitored. Stat cortisol level will be obtained. If his urine shows evidence of infection, antibiotics will be started. Serial H and H will be monitored. Selected home medicines will be continued. The patient will require close monitoring. Job ID: [id number] [facility]
[2019-04-18 09:10] VITALS: BMI 25.0
[2019-04-18 09:23] LABS: #Lymphocytes 2.5 thou/uL (1.20-3.40); #Monocytes 1.6 thou/uL (0.11-0.59); %Basophils 0.3 % (0.0-1.0); %Eosinophils 0.1 % (0.0-10.0); %Lymphocytes 13.7 % (21.0-51.0); %Monocytes 8.8 % (0.0-10.0); Hemoglobin 12.1 g/dL (14.0-18.0); Mean Corpuscular HGB CONC 32.5 g/dL (32.0-36.0); Mean Corpuscular Hemoglobin 29.2 pg (27.0-31.0); Mean Corpuscular Volume 89.6 fL (78.0-98.0); Mean Platelet Volume 5.8 fL (7.4-10.4); Platelet Count 288 thou/uL (130-400); RBC Distribution Width 12.1 % (11.5-14.5); Red Blood Cell (RBC) Count 4.16 mill/uL (4.70-6.10); White Blood Cell (WBC) Count 18.2 thou/uL (4.8-10.8)
[2019-04-18] MEDS: Carbidopa/Levodopa 25-100 mg Tablet PO SCH ×2 (14:56→20:42)
--- NOTE | 2019-04-18 14:59 | PDOC.EVN ---
Event Note - Event Note Event Note: Hx of addisons, will give stress level steroids
[2019-04-18 17:49] LABS: Anion Gap 11 mmol/L (10-20); BUN (Urea Nitrogen) 17 mg/dL (8.4-25.7); Calc. Creatinine Clearance 84 mL/min (70-130); Carbon Dioxide 21 mmol/L (23-31); Chloride 97 mmol/L (98-107); Estimated GFR-MDRD 90; Glucose 95 mg/dL (83-110); Potassium 4.2 mmol/L (3.5-5.1); Sodium 125 mmol/L (136-145)
[2019-04-18] MEDS: Hydrocortisone Sod Succ/PF 100 mg/2 ml Vial IVP SCH (20:42)
[2019-04-18] MEDS: Calcium Carbonate + Vit D 1 TAB PO SCH (20:42)
[2019-04-18] MEDS: Metoprolol Tartrate 25 MG TAB PO SCH (20:42)
[2019-04-18] MEDS: Docusate 100 MG CAP PO SCH (20:42)
[2019-04-18] MEDS ORDERED: Hydrocortisone 10 mg Tablet PO SCH (21:00)
[2019-04-18 22:30] LABS: Anion Gap 10 mmol/L (10-20); BUN (Urea Nitrogen) 15 mg/dL (8.4-25.7); Calc. Creatinine Clearance 93 mL/min (70-130); Calcium 8.7 mg/dL (7.8-10.44); Carbon Dioxide 22 mmol/L (23-31); Chloride 96 mmol/L (98-107); Estimated GFR-MDRD Greater than 90; Glucose 97 mg/dL (83-110); Potassium 4.2 mmol/L (3.5-5.1); Sodium 124 mmol/L (136-145)
[2019-04-19] MEDS: Sodium Chloride 0.9% 1,000 ML IV SCH ×3 (00:11→17:51)
[2019-04-19 05:54] LABS: #Lymphocytes 2.1 thou/uL (1.20-3.40); #Monocytes 1.5 thou/uL (0.11-0.59); #Neutrophils 12.4 thou/uL (1.40-6.50); %Basophils 0.1 % (0.0-1.0); %Eosinophils 0.3 % (0.0-10.0); %Lymphocytes 13.1 % (21.0-51.0); %Monocytes 9.3 % (0.0-10.0); %Neutrophils 77.3 % (42.0-75.0); Hemoglobin 11.2 g/dL (14.0-18.0); Mean Corpuscular HGB CONC 32.4 g/dL (32.0-36.0); Mean Corpuscular Volume 89.5 fL (78.0-98.0); Mean Platelet Volume 6.1 fL (7.4-10.4); Platelet Count 271 thou/uL (130-400); RBC Distribution Width 12.1 % (11.5-14.5); Red Blood Cell (RBC) Count 3.88 mill/uL (4.70-6.10)
[2019-04-19] MEDS: Aspirin Chewable 81 MG TAB PO SCH (09:37)
[2019-04-19] MEDS: Magnesium Oxide 400 MG TAB PO SCH (09:37)
[2019-04-19] MEDS: Ferrous Sulfate 325 MG TAB PO SCH (09:38)
[2019-04-19] MEDS: Carbidopa/Levodopa 25-100 mg Tablet PO SCH ×3 (09:38→20:14)
[2019-04-19] MEDS: Metoprolol Tartrate 25 MG TAB PO SCH ×2 (09:38→20:14)
[2019-04-19] MEDS: Hydrocortisone Sod Succ/PF 100 mg/2 ml Vial IVP SCH ×2 (09:38→20:17)
[2019-04-19] MEDS: Multivit, Therapeutic 1 TAB PO SCH (09:38)
--- NOTE | 2019-04-19 12:47 | PDOC.PN ---
- Subjective Encounter Start Date: 04/19/19 Encounter Start Time: 12:43 Subjective: decreased alertness - Objective Resuscitation Status - Order Detail: 04/18/19 07:14 Resuscitation Status Routine Resuscitation Status: FULL: Full Resuscitation MAR Reviewed: Yes Vital Signs & Weight: Vital Signs (12 hours) Temp Pulse Resp BP Pulse Ox 04/19/19 10:54 99.2 F 68 18 173/75 H 95 04/19/19 08:00 97 04/19/19 07:30 98.9 F 75 18 179/67 H 97 Weight Weight 165 lb I&O: 04/18/19 04/19/19 04/20/19 06:59 06:59 06:59 Intake Total 3300 100 Output Total 3 Balance 3297 100 Result Diagrams: 04/19/19 05:29 04/18/19 21:58 Phys Exam - Physical Examination Neck: no JVD Respiratory: clear to auscultation bilateral Cardiovascular: RRR, no significant murmur Gastrointestinal: soft, non-tender, positive bowel sounds Musculoskeletal: no edema skin clammy Dx/Plan (1) Encephalopathy acute Code(s): G93.40 - ENCEPHALOPATHY, UNSPECIFIED Status: Acute (2) Leukocytosis Code(s): D72.829 - ELEVATED WHITE BLOOD CELL COUNT, UNSPECIFIED Status: Acute Qualifiers: Leukocytosis type: unspecified Qualified Code(s): D72.829 - Elevated white blood cell count, unspecified (3) Acute renal failure Status: Resolved (4) CAD (coronary artery disease) Code(s): I25.10 - ATHSCL HEART DISEASE OF [place] CORONARY ARTERY W/O ANG PCTRS Status: Chronic Qualifiers: Coronary Disease-Associated Artery/Lesion type: [place] artery [place] vs. transplanted heart: [place] heart Associated angina: without angina Qualified Code(s): I25.10 - Atherosclerotic heart disease of [place] coronary artery without angina pectoris (5) Hyperkalemia Code(s): E87.5 - HYPERKALEMIA Status: Resolved (6) Physical deconditioning Code(s): R53.81 - OTHER MALAISE Status: Acute (7) Hypertension Code(s): I10 - ESSENTIAL (PRIMARY) HYPERTENSION Status: Chronic Qualifiers: Hypertension type: essential hypertension Qualified Code(s): I10 - Essential (primary) hypertension - Plan cultures neg. afebrile -: will give solu-medrol 125mg. start broad spectrum antibx. serum lactate * .
[2019-04-19] MEDS: Vancomycin HCl 1 GM in Premix Bag 1 BAG IVPB SCH (14:15)
--- NOTE | 2019-04-19 16:44 | PDOC.EVN ---
Event Note - Event Note Event Note: alert, apprpriate. looks much improved, cont iv antibx, await further C&S results. if down tomorrow , may need higher dose of steroids for addisons.
[2019-04-19] MEDS: Calcium Carbonate + Vit D 1 TAB PO SCH (20:13)
[2019-04-19] MEDS: Docusate 100 MG CAP PO SCH (20:13)
[2019-04-19] MEDS: Cefepime 2 GM in Sodium Chloride 0.9% 100 ML IVPB SCH (20:22)
[2019-04-20] MEDS: Vancomycin HCl 1 GM in Premix Bag 1 BAG IVPB SCH ×2 (02:53→14:43)
[2019-04-20] MEDS: hydrALAZINE 20 MG/ML VIAL SLOW IVP PRN ×2 (03:23→20:25)
[2019-04-20] MEDS: Ferrous Sulfate 325 MG TAB PO SCH (07:49)
[2019-04-20] MEDS: Carbidopa/Levodopa 25-100 mg Tablet PO SCH ×3 (07:49→20:20)
[2019-04-20] MEDS: Aspirin Chewable 81 MG TAB PO SCH (07:49)
[2019-04-20] MEDS: Hydrocortisone Sod Succ/PF 100 mg/2 ml Vial IVP SCH (07:49)
[2019-04-20] MEDS: Cefepime 2 GM in Sodium Chloride 0.9% 100 ML IVPB SCH ×2 (07:49→20:22)
[2019-04-20] MEDS: Multivit, Therapeutic 1 TAB PO SCH (07:50)
[2019-04-20] MEDS: Magnesium Oxide 400 MG TAB PO SCH (07:50)
[2019-04-20] MEDS: Metoprolol Tartrate 25 MG TAB PO SCH ×2 (07:50→20:20)
[2019-04-20] MEDS: Sodium Chloride 0.9% 1,000 ML IV SCH (07:51)
[2019-04-20] MEDS ORDERED: Sodium Chloride 0.9% 1,000 ML IV SCH (09:23)
--- NOTE | 2019-04-20 11:00 | PQF ---
CLINICAL DOCUMENTATION IMPROVEMENT CLARIFICATION FORM: ICD-10 Updated PLEASE DO AN ADDENDUM TO THE PROGRESS NOTE WITH ANY DOCUMENTATION UPDATES OR ADDITIONS AND CARRY THROUGH TO DC SUMMARY. THANK YOU. DATE: ATTN: Dr. Parish Please exercise your independent, professional judgment in responding to the clarification form. Clinical indicators are provided on the bottom of this form for your review Please check appropriate box(s): [ ] Encephalopathy: Etiology: [ ] Hypertensive [ X] Metabolic [ ] Toxic [ ] Septic [ ] Unspecified [ ] in the setting of underlying dementia [ ] Other (please specify) [ ] Other diagnosis [ ] Unable to determine In addition, please specify: Present on Admission (POA): [ X ] Yes [ ] No [ ] Unable to determine For continuity of documentation, please document condition throughout progress notes and discharge summary. Thank You. CLINICAL INDICATORS - SIGNS / SYMPTOMS / LABS H&P 04/18: Pt was transferred because of confusion. Has been found to have fever, leukocytosis, acute kidney failure, and heme-positive stools. White count 18.3 Admitting DX's: Encephalopathy Hyponatremia Hyperkalemia JOYCE 04/18 Event note : Hx of addisons, will give stress level steroids. 04/19 Event note: Alert, appropriate. looks much improved, cont iv antibx RISKS: H&P 04/18: 73 yo, [facility] [place] [facility]. Past medical hx of HTN, Parkinson disease; Hyponatremia, thought d/t SIADH; alcohol abuse in the past , TREATMENT: H&P: Pt will be started on normal saline. Serial bmp's will be monitored. MAR: 04/19 Order: Cefepime 2 gm IV q 12 hr Thank you, Ellen (This form is maintained as a part of the permanent medical record) 2014 [employer]. All Rights Reserved Ellen Alvarez RN, BSN [email or web address] Office: [phone] [facility]
[2019-04-20 14:04] LABS: Vancomycin, Trough 9.6 ug/mL
--- NOTE | 2019-04-20 14:31 | PDOC.PN ---
- Subjective Encounter Start Date: 04/20/19 Encounter Start Time: 14:29 Subjective: wants to go home.denies any pain or discomfort -: no difficulty urination/fever/chills - Objective Resuscitation Status - Order Detail: 04/18/19 07:14 Resuscitation Status Routine Resuscitation Status: FULL: Full Resuscitation MAR Reviewed: Yes Vital Signs & Weight: Vital Signs (12 hours) Temp Pulse Resp BP BP BP Pulse Ox 04/20/19 11:29 98.5 F 76 16 169/75 H 97 04/20/19 08:04 99.2 F 103 H 16 138/55 L 98 04/20/19 04:00 98.6 F 76 16 151/76 H 95 04/20/19 03:23 70 192/73 H 04/20/19 02:54 187/75 H Weight Weight 167 lb I&O: 04/19/19 04/20/19 04/21/19 06:59 06:59 06:59 Intake Total 3300 1300 Output Total 3 Balance 3297 1300 Result Diagrams: 04/19/19 05:29 04/18/19 21:58 Additional Labs: Microbiology 04/18/19 06:43 Urine voided Urine Culture - Final NO GROWTH AT 48 HOURS 04/18/19 04:55 Stool - Pending Stool Occult Blood (DAKSHA) - Final 04/18/19 06:43 Urine voided Urine Culture - Preliminary NO GROWTH AT 24 HOURS 04/18/19 05:46 Venous blood - Right Arm Blood Culture - Preliminary Specimen has been received and culture in progress. No Growth to date. 04/18/19 05:46 Venous blood - Right Arm Blood Culture - Preliminary NO GROWTH AT 48 HOURS 04/18/19 05:35 Venous blood - Right Arm Blood Culture - Preliminary Specimen has been received and culture in progress. No Growth to date. 04/18/19 05:35 Venous blood - Right Arm Blood Culture - Preliminary NO GROWTH AT 48 HOURS Laboratory Tests 05/17/18 05/18/18 04/18/19 04:32 04:21 05:36 WBC 18.3 H Sodium 126 L 132 L 04/18/19 04/18/19 04/18/19 05:36 09:10 17:02 WBC 18.2 H Sodium 125 L 125 L 04/18/19 04/19/19 21:58 05:29 WBC 16.0 H Sodium 124 L Phys Exam - Physical Examination Constitutional: NAD dishevelled HEENT: PERRLA, moist MMs, sclera anicteric, oral pharynx no lesions Neck: no nodes, no JVD, supple, full ROM Respiratory: no wheezing, no rales, no rhonchi, clear to auscultation bilateral Cardiovascular: RRR, no significant murmur Gastrointestinal: soft, non-tender, no distention, positive bowel sounds Musculoskeletal: no edema, pulses present Neurological: non-focal, normal sensation, moves all 4 limbs Psychiatric: normal affect, A&O x 3 Skin: no rash Dx/Plan (1) Hyponatremia Code(s): E87.1 - HYPO-OSMOLALITY AND HYPONATREMIA Status: Acute (2) Encephalopathy acute Code(s): G93.40 - ENCEPHALOPATHY, UNSPECIFIED Status: Acute Comment: improved. suspected due to hyponatremia.metabolic. all Cx negative (3) CAD (coronary artery disease) Code(s): I25.10 - ATHSCL HEART DISEASE OF [place] CORONARY ARTERY W/O ANG PCTRS Status: Chronic Qualifiers: Coronary Disease-Associated Artery/Lesion type: [place] artery [place] vs. transplanted heart: [place] heart Associated angina: without angina Qualified Code(s): I25.10 - Atherosclerotic heart disease of [place] coronary artery without angina pectoris (4) COPD (chronic obstructive pulmonary disease) Status: Chronic Comment: stable (5) Hypertension Code(s): I10 - ESSENTIAL (PRIMARY) HYPERTENSION Status: Chronic Qualifiers: Hypertension type: essential hypertension Qualified Code(s): I10 - Essential (primary) hypertension - Plan empiric ABx and steroids. will taper as all Cx negative -: recheck BMP.h/o SIADH.reduce IVf and fluid restrict -: no labs yesterday. -: consult nephrology. * . Review of Systems - Review of Systems Constitutional: weakness, malaise - Medications/Allergies Allergies/Adverse Reactions: Allergies Allergy/AdvReac Type Severity Reaction Status Date / Time [id number]-Tll-Txj Reductase Allergy Verified 05/15/18 21:54 Inhibitor tramadol Allergy Verified 05/15/18 21:54 Medications: Current Medications Acetaminophen (Tylenol) 650 mg PO Q4H PRN PRN Reason: Headache/Fever/Mild Pain (1-3) Last Admin: 04/19/19 16:31 Dose: 650 mg Aspirin (Aspirin Chewable) 81 mg PO DAILY [facility] Last Admin: 04/20/19 07:49 Dose: 81 mg Calcium/Vitamin D (Caltrate 600 + Vit D) 1 tab PO HS [facility] Last Admin: 04/19/19 20:13 Dose: 1 tab Carbidopa/Levodopa (Sinemet 25-100) 1 tab PO TID [facility] Last Admin: 04/20/19 07:49 Dose: 1 tab Cholecalciferol (Vitamin D3) 2,000 units PO DAILY [facility] Last Admin: 04/20/19 07:49 Dose: 2,000 units Docusate Sodium (Colace) 100 mg PO HS [facility] Last Admin: 04/19/19 20:13 Dose: 100 mg Duloxetine HCl (Cymbalta) 20 mg PO DAILY [facility] Last Admin: 04/20/19 07:49 Dose: 20 mg Ferrous Sulfate (Feosol) 325 mg PO DAILY [facility] Last Admin: 04/20/19 07:49 Dose: 325 mg Hydralazine HCl (Apresoline) 10 mg SLOW IVP Q4H PRN PRN Reason: Hypertension Last Admin: 04/20/19 03:23 Dose: 10 mg Hydrocortisone Sodium Succinate (Solu-Cortef) 25 mg IVP BID [facility] Last Admin: 04/20/19 07:49 Dose: 25 mg Cefepime HCl 2 gm/ Sodium (Chloride) 100 mls @ 200 mls/hr IVPB Q12HR [facility] Last Admin: 04/20/19 07:49 Dose: 100 mls Sodium Chloride (Normal Saline 0.9%) 1,000 mls @ 50 mls/hr IV .Q20H [facility] Last Admin: 04/20/19 11:05 Dose: Not Given Magnesium Oxide (Magnesium Oxide) 400 mg PO DAILY [facility] Last Admin: 04/20/19 07:50 Dose: 400 mg Metoprolol Tartrate (Lopressor) 25 mg PO BID [facility] Last Admin: 04/20/19 07:50 Dose: 25 mg Miscellaneous Medication (Pharmacy To Dose) 0 each IVPB ASDIR [facility] Multivitamins (Theragran) 1 tab PO DAILY [facility] Last Admin: 04/20/19 07:50 Dose: 1 tab Ondansetron HCl (Zofran Odt) 4 mg PO Q6H PRN PRN Reason: Nausea/Vomiting Pantoprazole Sodium (Protonix) 20 mg PO DAILY [facility] Last Admin: 04/20/19 07:50 Dose: 20 mg Sodium Chloride (Flush - Normal Saline) 10 ml IVF Q12HR [facility] Last Admin: 04/20/19 07:51 Dose: Not Given Sodium Chloride (Flush - Normal Saline) 10 ml IVF PRN PRN PRN Reason: Saline Flush
[2019-04-20] MEDS ORDERED: Vancomycin HCl 1.5 GM in Sodium Chloride 0.9% 250 ML 300 ML IVPB SCH (14:45)
[2019-04-20 14:55] LABS: Anion Gap 13 mmol/L (10-20); BUN (Urea Nitrogen) 10 mg/dL (8.4-25.7); Calc. Creatinine Clearance 101 mL/min (70-130); Carbon Dioxide 20 mmol/L (23-31); Chloride 97 mmol/L (98-107); Estimated GFR-MDRD Greater than 90; Glucose 106 mg/dL (83-110); Potassium 3.6 mmol/L (3.5-5.1); Sodium 126 mmol/L (136-145)
[2019-04-20] MEDS: Calcium Carbonate + Vit D 1 TAB PO SCH (20:20)
[2019-04-20] MEDS: Docusate 100 MG CAP PO SCH (20:20)
[2019-04-21] MEDS: Vancomycin HCl 1.5 GM in Sodium Chloride 0.9% 250 ML 300 ML IVPB SCH ×2 (01:21→13:39)
--- NOTE | 2019-04-21 01:51 | CON ---
DATE OF CONSULTATION: CONSULTING PHYSICIAN: Sindi Banks MD REQUESTING PHYSICIAN: Dr. Parish. REASON FOR CONSULTATION: Hyponatremia. IMPRESSION: Hyponatremia. Going by the history of this patient, this is likely to be syndrome of inappropriate antidiuretic hormone, however, cannot completely rule out other potential etiologies. PLAN: 1. Urine chemistry including urine sodium and urine osmolality to characterize this hyponatremia and treat accordingly. 2. We will discontinue current IV fluids since this is SIADH disease, IV fluid will make things worse. 3. We will change the diet to include increased amount of meat. 4. Further management to be dependent on the clinical course. HISTORY: A 73-year-old gentleman who was sent in with altered mental status, noted with low sodium level. Going by the history of this patient and a previous hospitalization, the patient has had issues with hyponatremia. The workup today did review evidence of SIADH. Now, because of the worsening hyponatremia, decision has been taken to involve Renal in the management of this case. PAST MEDICAL HISTORY: Significant for Parkinson disease, hyponatremia, alcohol abuse in the past, anxiety, chronic pain, and reflux disease. MEDICATIONS: Reviewed as documented on [employer]. ALLERGIES: NO KNOWN DRUG ALLERGIES. FAMILY HISTORY: Not significantly related to present illness. REVIEW OF SYSTEMS: As documented in the body of the history. All the other systems were reviewed and found not to be significantly related to present illness. PHYSICAL EXAMINATION: GENERAL: The patient was found not to be in any obvious distress, noted with the following vital signs. VITAL SIGNS: Afebrile, temperature 98.2, pulse 74, respiratory rate of 16, O2 saturation of 93%, blood pressure of 170/72 to 192/79. HEENT: Unremarkable. CARDIOVASCULAR: First and second heart sounds were heard. RESPIRATORY: Clear to auscultation. DIGESTIVE SYSTEM: Revealed a benign abdomen with positive bowel sounds. EXTREMITIES: No peripheral edema. SKIN: No new gross rash. LYMPHATICS: No peripheral lymphadenopathy. SUMMARY: A 73-year-old gentleman with hyponatremia, possibly syndrome of inappropriate antidiuretic hormone. Thank you for this consultation. We will follow with you. Job ID: [id number]
[2019-04-21 06:40] LABS: #Basophils 0.1 thou/uL (0.0-0.2); #Eosinphils 0.4 thou/uL (0.0-0.7); #Lymphocytes 2.3 thou/uL (1.20-3.40); #Monocytes 1.2 thou/uL (0.11-0.59); #Neutrophils 6.2 thou/uL (1.40-6.50); %Basophils 0.5 % (0.0-1.0); %Eosinophils 4.2 % (0.0-10.0); %Lymphocytes 22.8 % (21.0-51.0); %Monocytes 11.4 % (0.0-10.0); %Neutrophils 61.1 % (42.0-75.0); Hemoglobin 11.2 g/dL (14.0-18.0); Mean Corpuscular Hemoglobin 29.3 pg (27.0-31.0); Mean Corpuscular Volume 88.6 fL (78.0-98.0); Mean Platelet Volume 6.3 fL (7.4-10.4); Platelet Count 324 thou/uL (130-400); Red Blood Cell (RBC) Count 3.84 mill/uL (4.70-6.10); White Blood Cell (WBC) Count 10.2 thou/uL (4.8-10.8)
[2019-04-21 07:00] LABS: Anion Gap 10 mmol/L (10-20); BUN (Urea Nitrogen) 8 mg/dL (8.4-25.7); Calc. Creatinine Clearance 109 mL/min (70-130); Calcium 9.1 mg/dL (7.8-10.44); Carbon Dioxide 24 mmol/L (23-31); Chloride 97 mmol/L (98-107); Estimated GFR-MDRD Greater than 90; Glucose 81 mg/dL (83-110); Potassium 3.4 mmol/L (3.5-5.1); Sodium 128 mmol/L (136-145)
[2019-04-21] MEDS ORDERED: predniSONE 20 MG TAB PO SCH (08:00)
[2019-04-21] MEDS: Multivit, Therapeutic 1 TAB PO SCH (08:38)
[2019-04-21] MEDS: Ferrous Sulfate 325 MG TAB PO SCH (08:39)
[2019-04-21] MEDS: Cefepime 2 GM in Sodium Chloride 0.9% 100 ML IVPB SCH ×2 (08:39→19:58)
[2019-04-21] MEDS: Aspirin Chewable 81 MG TAB PO SCH (08:39)
[2019-04-21] MEDS: Carbidopa/Levodopa 25-100 mg Tablet PO SCH ×3 (08:39→19:58)
[2019-04-21] MEDS: Magnesium Oxide 400 MG TAB PO SCH (08:39)
[2019-04-21] MEDS: Metoprolol Tartrate 25 MG TAB PO SCH ×2 (08:39→19:58)
--- NOTE | 2019-04-21 13:52 | PDOC.PN ---
- Subjective Encounter Start Date: 04/21/19 Encounter Start Time: 13:50 Subjective: no new complaints but wants to walk and go back to CT - Objective Resuscitation Status - Order Detail: 04/18/19 07:14 Resuscitation Status Routine Resuscitation Status: FULL: Full Resuscitation MAR Reviewed: Yes Vital Signs & Weight: Vital Signs (12 hours) Temp Pulse Resp BP BP Pulse Ox 04/21/19 08:36 97 04/21/19 08:00 98.3 F 98 18 150/76 H 97 04/21/19 04:16 98.6 F 84 16 159/78 H 96 Weight Weight 164 lb 10.965 oz I&O: 04/20/19 04/21/19 04/22/19 06:59 06:59 06:59 Intake Total 1300 2670 Output Total 200 Balance 1300 2470 Result Diagrams: 04/21/19 06:10 04/21/19 06:10 Additional Labs: Microbiology 04/18/19 06:43 Urine voided Urine Culture - Final NO GROWTH AT 48 HOURS 04/18/19 04:55 Stool - Pending Stool Occult Blood (DAKSHA) - Final 04/18/19 05:46 Venous blood - Right Arm Blood Culture - Preliminary NO GROWTH AT 48 HOURS 04/18/19 05:35 Venous blood - Right Arm Blood Culture - Preliminary NO GROWTH AT 48 HOURS Phys Exam - Physical Examination Constitutional: NAD HEENT: PERRLA, moist MMs, sclera anicteric, oral pharynx no lesions, 2+ tonsils Neck: no nodes, no JVD, supple, full ROM Respiratory: no wheezing, no rales, no rhonchi, clear to auscultation bilateral Cardiovascular: RRR, no significant murmur Gastrointestinal: soft, non-tender, no distention, positive bowel sounds Musculoskeletal: no edema, pulses present Neurological: non-focal, normal sensation, moves all 4 limbs Psychiatric: normal affect, A&O x 3 Skin: no rash Dx/Plan (1) Hyponatremia Code(s): E87.1 - HYPO-OSMOLALITY AND HYPONATREMIA Status: Acute Comment: improving with fluid restriction and stopping IVF. Nephrology recs appreciated as well likley SIADH.Monitor (2) Encephalopathy acute Code(s): G93.40 - ENCEPHALOPATHY, UNSPECIFIED Status: Acute Comment: improved. suspected due to hyponatremia.metabolic. all Cx negative (3) CAD (coronary artery disease) Code(s): I25.10 - ATHSCL HEART DISEASE OF [place] CORONARY ARTERY W/O ANG PCTRS Status: Chronic Qualifiers: Coronary Disease-Associated Artery/Lesion type: [place] artery [place] vs. transplanted heart: [place] heart Associated angina: without angina Qualified Code(s): I25.10 - Atherosclerotic heart disease of [place] coronary artery without angina pectoris (4) COPD (chronic obstructive pulmonary disease) Status: Chronic Comment: stable (5) Hypertension Code(s): I10 - ESSENTIAL (PRIMARY) HYPERTENSION Status: Chronic Qualifiers: Hypertension type: essential hypertension Qualified Code(s): I10 - Essential (primary) hypertension - Plan DVT proph w/SCDs mentataion cleared. all Cx negative -: stop Abx after today -: DC back to NH hopefully tomorrow if sodium continues to improve -: am labs -: steroid quick taper * . Review of Systems - Review of Systems Constitutional: weakness. negative: fever, chills, sweats, malaise, other ENT: negative: Ear Pain, Ear Discharge, Nose Pain, Nose Discharge, Nose Congestion, Mouth Pain, Mouth Swelling, Throat Pain, Throat Swelling, Other Cardiovascular: negative: chest pain, palpitations, orthopnea, paroxysmal nocturnal dyspnea, edema, light headedness, other Gastrointestinal: negative: Nausea, Vomiting, Abdominal Pain, Diarrhea, Constipation, Melena, Hematochezia, Other Genitourinary: negative: Dysuria, Frequency, Incontinence, Hematuria, Retention , Other Musculoskeletal: negative: Neck Pain, Shoulder Pain, Arm Pain, Back Pain, Hand Pain, Leg Pain, Foot Pain, Other Neurological: negative: Weakness, Numbness, Incoordination, Change in Speech, Confusion, Seizures, Other - Medications/Allergies Allergies/Adverse Reactions: Allergies Allergy/AdvReac Type Severity Reaction Status Date / Time Irigogh-Rhl-Jhz Reductase Allergy Verified 05/15/18 21:54 Inhibitor tramadol Allergy Verified 05/15/18 21:54 Medications: Current Medications Acetaminophen (Tylenol) 650 mg PO Q4H PRN PRN Reason: Headache/Fever/Mild Pain (1-3) Last Admin: 04/19/19 16:31 Dose: 650 mg Aspirin (Aspirin Chewable) 81 mg PO DAILY [facility]HA Last Admin: 04/21/19 08:39 Dose: 81 mg Calcium/Vitamin D (Caltrate 600 + Vit D) 1 tab PO HS [facility] Last Admin: 04/20/19 20:20 Dose: 1 tab Carbidopa/Levodopa (Sinemet 25-100) 1 tab PO TID [facility] Last Admin: 04/21/19 08:39 Dose: 1 tab Cholecalciferol (Vitamin D3) 2,000 units PO DAILY [facility] Last Admin: 04/21/19 08:38 Dose: 2,000 units Docusate Sodium (Colace) 100 mg PO HS [facility] Last Admin: 04/20/19 20:20 Dose: 100 mg Duloxetine HCl (Cymbalta) 20 mg PO DAILY [facility] Last Admin: 04/21/19 08:39 Dose: 20 mg Ferrous Sulfate (Feosol) 325 mg PO DAILY [facility] Last Admin: 04/21/19 08:39 Dose: 325 mg Hydralazine HCl (Apresoline) 10 mg SLOW IVP Q4H PRN PRN Reason: Hypertension Last Admin: 04/20/19 20:25 Dose: 10 mg Cefepime HCl 2 gm/ Sodium (Chloride) 100 mls @ 200 mls/hr IVPB Q12HR [facility] Stop: 04/22/19 09:29 Last Admin: 04/21/19 08:39 Dose: 100 mls Vancomycin HCl 1.5 gm/ Sodium (Chloride) 300 mls @ 200 mls/hr IVPB 0200,1400 [facility] Stop: 04/22/19 03:29 Last Admin: 04/21/19 13:39 Dose: 300 mls Magnesium Oxide (Magnesium Oxide) 400 mg PO DAILY [facility] Last Admin: 04/21/19 08:39 Dose: 400 mg Metoprolol Tartrate (Lopressor) 25 mg PO BID [facility] Last Admin: 04/21/19 08:39 Dose: 25 mg Miscellaneous Medication (Pharmacy To Dose) 0 each IVPB ASDIR [facility] Multivitamins (Theragran) 1 tab PO DAILY [facility] Last Admin: 04/21/19 08:38 Dose: 1 tab Ondansetron HCl (Zofran Odt) 4 mg PO Q6H PRN PRN Reason: Nausea/Vomiting Pantoprazole Sodium (Protonix) 20 mg PO DAILY [facility] Last Admin: 04/21/19 08:38 Dose: 20 mg Prednisone (Prednisone) 20 mg PO QAM-WM [facility] Last Admin: 04/21/19 08:39 Dose: 20 mg Sodium Chloride (Flush - Normal Saline) 10 ml IVF Q12HR [facility] Last Admin: 04/21/19 08:41 Dose: 10 ml Sodium Chloride (Flush - Normal Saline) 10 ml IVF PRN PRN PRN Reason: Saline Flush
--- NOTE | 2019-04-21 14:07 | EKG ---
Test Reason : Blood Pressure : / mmHG Vent. Rate : 084 BPM Atrial Rate : 084 BPM P-R Int : 236 ms QRS Dur : 078 ms QT Int : 356 ms P-R-T Axes : 007 011 028 degrees QTc Int : 420 ms Sinus rhythm with sinus arrhythmia with 1st degree A-V block Otherwise normal ECG Confirmed by WAYNE LOMBARDI ([id number]), editorial writer KENNA SMITH ([id number]) on 04/21/2019 2:07:35 PM Referred By: Confirmed By:WAYNE LOMBARDI
[2019-04-21] MEDS ORDERED: Tolvaptan 15 MG TAB PO SCH (18:45)
[2019-04-21] MEDS: Calcium Carbonate + Vit D 1 TAB PO SCH (19:57)
[2019-04-21] MEDS: Docusate 100 MG CAP PO SCH (19:58)
[2019-04-22] MEDS: Vancomycin HCl 1.5 GM in Sodium Chloride 0.9% 250 ML 300 ML IVPB SCH (01:35)
[2019-04-22 06:52] LABS: #Basophils 0.1 thou/uL (0.0-0.2); #Eosinphils 0.3 thou/uL (0.0-0.7); #Lymphocytes 2.9 thou/uL (1.20-3.40); #Monocytes 1.2 thou/uL (0.11-0.59); #Neutrophils 6.4 thou/uL (1.40-6.50); %Basophils 0.7 % (0.0-1.0); %Eosinophils 2.7 % (0.0-10.0); %Lymphocytes 26.5 % (21.0-51.0); %Monocytes 10.8 % (0.0-10.0); %Neutrophils 59.3 % (42.0-75.0); Hemoglobin 11.7 g/dL (14.0-18.0); Mean Corpuscular HGB CONC 32.7 g/dL (32.0-36.0); Mean Corpuscular Hemoglobin 29.2 pg (27.0-31.0); Mean Corpuscular Volume 89.2 fL (78.0-98.0); Mean Platelet Volume 6.3 fL (7.4-10.4); Platelet Count 365 thou/uL (130-400); RBC Distribution Width 12.1 % (11.5-14.5); White Blood Cell (WBC) Count 10.8 thou/uL (4.8-10.8)
[2019-04-22 07:17] LABS: Anion Gap 12 mmol/L (10-20); BUN (Urea Nitrogen) 12 mg/dL (8.4-25.7); Calc. Creatinine Clearance 82 mL/min (70-130); Calcium 9.6 mg/dL (7.8-10.44); Carbon Dioxide 24 mmol/L (23-31); Chloride 100 mmol/L (98-107); Estimated GFR-MDRD 87; Glucose 98 mg/dL (83-110); Potassium 3.5 mmol/L (3.5-5.1); Sodium 132 mmol/L (136-145)
[2019-04-22] MEDS ORDERED: predniSONE 20 MG TAB PO SCH (08:00)
[2019-04-22] MEDS: Aspirin Chewable 81 MG TAB PO SCH (08:20)
[2019-04-22] MEDS: Carbidopa/Levodopa 25-100 mg Tablet PO SCH ×2 (08:20→14:31)
[2019-04-22] MEDS: Cefepime 2 GM in Sodium Chloride 0.9% 100 ML IVPB SCH (08:21)
[2019-04-22] MEDS: Metoprolol Tartrate 25 MG TAB PO SCH (08:22)
[2019-04-22] MEDS: Ferrous Sulfate 325 MG TAB PO SCH (08:22)
[2019-04-22] MEDS: Magnesium Oxide 400 MG TAB PO SCH (08:22)
[2019-04-22] MEDS: Multivit, Therapeutic 1 TAB PO SCH (08:23)
[2019-04-22] MEDS ORDERED: Tolvaptan 15 MG TAB PO SCH (09:00)
[2019-04-22 14:41] VITALS: BP 148/80; TEMP 98.1
--- NOTE | 2019-04-22 15:59 | DIS ---
DATE OF ADMISSION: 04/18/2019 DATE OF DISCHARGE: 04/22/2019 DISCHARGE DISPOSITION: Back to long-term senior living at [facility]. PRIMARY CARE PHYSICIAN: Dr. Rosen. IN-HOUSE CONSULTATION: Nephrology, Dr. Delong. PROCEDURES DONE IN THE HOSPITAL: CT scan of the brain upon presentation, which is negative for any acute abnormality. DISCHARGE DIAGNOSES: 1. Metabolic encephalopathy due to hyponatremia. 2. 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 3. History of coronary artery disease. 4. Chronic obstructive pulmonary disease. 5. Hypertension. 6. Sepsis, ruled out. HISTORY OF PRESENTING ILLNESS: Mr. Sepulveda is a pleasant 73-year-old senior living resident who was admitted to the emergency room for complaints of altered mental status. His white count was 18.3, lactic acid 1.1, potassium 5.5, creatinine 1.48, sodium 125. He was otherwise hemodynamically stable albeit a little bit hypertensive. He was admitted with a presumptive diagnosis of encephalopathy and rule out sepsis. Please see admission history and physical dictated by Dr. Davis on 04/18/2019, for full details. HOSPITAL COURSE: The patient's leukocytosis improved after he was started on empiric antibiotics. Urine culture and blood culture were obtained and were negative till date. It was thought that his encephalopathy is most likely due to hyponatremia. 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 Nephrology was once again consulted and Dr. Delong, who has seen the patient in the past: Saw him again. He was put on fluid restriction and saline was discontinued, which was started by the admitting physician. His sodium improved to 132 on the day of discharge from 125. His mentation has been back to baseline for the last 2 days of my examination. He is awake, alert, and oriented x3. He will be discharged back home and he is very eager to go back home. He worked barely with the physical therapist here, but I was notified that he is wheelchair bound otherwise. He will get OT/PT in the senior living. He will be discharged. I have seen and examined the patient prior to discharge. PHYSICAL EXAMINATION: This morning; VITAL SIGNS: Blood pressure of 148/80, heart rate 98. No acute distress; sitting up in bed. Awake, alert, and oriented x3. CHEST: Clear to auscultation bilaterally. HEART: Rate and rhythm are regular. He is given referral to follow up with Nephrology in the outpatient setting as well. Otherwise, no changes were made. He is being discharged on empiric antibiotics to finish the course of antibiotic that he was started here by Dr. Davis. All the infectious workup has been negative. DISCHARGE MEDICATIONS: New medication; Omnicef 300 mg p.o. b.i.d., and Florastor 250 mg p.o. b.i.d., Omnicef for 5 days and Florastor for 7 days. Rest of the discharge medication remain as same as admission medication. Resume home medication as dictated in Dr. Erazo's H and P from 04/18/2019. No changes were made. TIME SPENT: Total time spent on the discharge, 32 minutes. Job ID: [id number]
== END 2019-04-22 14:54 | DRG 643 ==
LOC: ERS 04:40 → T4-A 08:16 → OBSVTOIN 13:10
PROVIDERS: ADMIT Family Medicine; ATTEND Family Medicine
DX: E22.2 Syndrome of inappropriate secretion of antidiuretic hormone (principal); G93.41 Metabolic encephalopathy; N17.9 Acute kidney failure, unspecified; E87.5 Hyperkalemia; I25.10 Atherosclerotic heart disease of native coronary artery without angina pectoris; G20 Parkinson's disease; I10 Essential (primary) hypertension; E86.0 Dehydration; F41.9 Anxiety disorder, unspecified; K21.9 Gastro-esophageal reflux disease without esophagitis; Z79.82 Long term (current) use of aspirin; Z95.1 Presence of aortocoronary bypass graft; Z79.899 Other long term (current) drug therapy
CPT/HCPCS: 36415; 51701; 70450; 71045; 80048; 80053; 80202; 81003; 82274; 82533; 83605; 83935; 84300; 84484; 85025; 87040; 87086; 93005; 96361; 96374; C9113; J0360; J0692; J1720; J3370; J3490; J7050; J7512

== ENCOUNTER 2019-11-10 10:37 | Inpatient (IN) | payer MEDICARE, MEDICAID ==
[2019-11-10] MEDS ORDERED: HYDROcodone/Acetaminophen 5/325 mg Tablet ONE (11:08)
--- NOTE | 2019-11-10 11:35 | RAD ---
XR Hip Rt 2-3 View HISTORY: Right hip pain. COMPARISON: None. FINDINGS: There are arthritic changes of the hip. There is an area of lucency over the right superior pubic ramus, I think this is somewhat unlikely to represent a fracture but the acetabulum is difficult to assess in this patient. If there is strong suspicion of injury I would suggest CT for fu rther assessment. Extensive vascular calcifications are noted. IMPRESSION: Lucency along the central aspect of acetabulum and superior pubic ramus region although t his may just be related to rotation the possibility of an acetabular or superior pubic rami injury is not excluded and consideration for CT if patient has had significant trauma is suggested.
--- NOTE | 2019-11-10 12:19 | CT ---
EXAM: CT Pelvis WO Con PROVIDED CLINICAL HISTORY: Right hip pain status post injury COMPARISON: None FINDINGS: There is a markedly comminuted fracture of the right acetabulum with involvement of anterior and post erior carlisle as well as acetabular roof. There are nondisplaced fractures involving both right superior and inferior pubic rami. Extensive vascular calcifications are seen with severe right common iliac, right common femoral and b ilateral proximal superficial femoral artery stenoses. Moderate to severe profunda femoral stenoses bilaterally. Postoperative changes of left hip arthroplasty are noted without evidence for hardware complication. No additional fracture is evident. IMPRESSION: Complex comminuted right acetabular fracture with involvement of the obturator ring. Orthopedic consu ltation is recommended.
--- NOTE | 2019-11-10 14:03 | RAD ---
PORTABLE CHEST: HISTORY: Preop. COMPARISON: 04/18/2019 study. FINDINGS: Heart size is within normal limits for portable technique. There are postop sternotomy changes. The re are atherosclerotic changes of the aorta. The lungs are clear of infiltrates. IMPRESSION: No active intrathoracic disease. POS: KYRAH
[2019-11-10 14:06] LABS: #Basophils 0.1 thou/uL (0.0-0.2); #Eosinphils 0.2 thou/uL (0.0-0.7); #Neutrophils 11.5 thou/uL (1.40-6.50); %Basophils 0.5 % (0.0-1.0); %Eosinophils 1.1 % (0.0-10.0); %Lymphocytes 13.6 % (21.0-51.0); %Monocytes 6.8 % (0.0-10.0); %Neutrophils 78.1 % (42.0-75.0); Hemoglobin 12.9 g/dL (14.0-18.0); Mean Corpuscular HGB CONC 33.5 g/dL (32.0-36.0); Mean Corpuscular Hemoglobin 29.8 pg (27.0-31.0); Mean Corpuscular Volume 88.9 fL (78.0-98.0); Platelet Count 305 thou/uL (130-400); RBC Distribution Width 12.1 % (11.5-14.5); Red Blood Cell (RBC) Count 4.33 mill/uL (4.70-6.10); White Blood Cell (WBC) Count 14.8 thou/uL (4.8-10.8)
[2019-11-10 14:12] LABS: Prothrombin Time 12.8 SEC (12.0-14.7)
[2019-11-10 14:27] LABS: ALT (SGPT) Less than 7 U/L (8-55); AST (SGOT) 21 U/L (5-34); Albumin 4.1 g/dL (3.4-4.8); Alkaline Phosphatase 57 U/L (40-110); Anion Gap 14 mmol/L (10-20); BUN (Urea Nitrogen) 10 mg/dL (8.4-25.7); Bilirubin, Total 0.4 mg/dL (0.2-1.2); Calc. Creatinine Clearance 0 mL/min (70-130); Calcium 9.1 mg/dL (7.8-10.44); Carbon Dioxide 23 mmol/L (23-31); Chloride 95 mmol/L (98-107); Estimated GFR-MDRD 86; Globulin 3.2 g/dL (2.4-3.5); Glucose 106 mg/dL (83-110); Potassium 4.1 mmol/L (3.5-5.1); Protein, Total 7.3 g/dL (5.8-8.1); Sodium 128 mmol/L (136-145)
--- NOTE | 2019-11-10 15:11 | HP ---
REQUESTING PHYSICIAN: Clayton Hicks MD ATTENDING SURGEON: Dr. Velez. CONSULTATIONS: Orthopedics, Franco Mireles DO. HISTORY OF PRESENT ILLNESS: The patient is a 74-year-old man who lives at [facility]. He reports this morning he was in his bed when he rolled out, he fell onto the floor, landing on his right hip. He was brought to the emergency department by ground ambulance, where he underwent evaluation and examination. He was noted to have a right acetabular fracture. The patient denies hitting his head or having any loss of consciousness and was able to summon help quickly. ALLERGIES: TRAMADOL AND STATINS. CURRENT MEDICATIONS: 1. Baby aspirin. 2. Carbidopa/levodopa. 3. Gabapentin. 4. Metoprolol tartrate. 5. MiraLAX. 6. Cymbalta. 7. Hydrocortisone. 8. Losartan. 9. Pramipexole. 10. . 11. Tylenol with Codeine. 12. Calcium. 13. Amlodipine. PAST MEDICAL HISTORY: 1. Parkinson disease. 2. Topaz's crisis/adrenal insufficiency. 3. Coronary artery disease. 4. Hypertension. PAST SURGICAL HISTORY: 1. Inguinal hernia repair. 2. Appendectomy. 3. Tonsillectomy. 4. Coronary artery bypass graft x3 vessels. SOCIAL HISTORY: The patient resides in a nursing facility. He quit smoking greater than 10 years ago. Drinks occasional alcohol. Denies drug use. REVIEW OF SYSTEMS: A 10-point review of systems is negative except as otherwise stated. PHYSICAL EXAMINATION: VITAL SIGNS: Blood pressure 138/65, heart rate 67, respirations 18, oxygen saturation 93% on room air, and temperature is 98.8. GENERAL: The patient is resting comfortably in bed. He is awake, alert, and oriented x3. [place] Coma Scale is 15. HEENT: Normocephalic and atraumatic. Eyes, extraocular motion intact. PERRLA bilaterally. Ears are atraumatic without discharge. Nose is atraumatic without discharge. Oropharynx is clear. NECK: Nontender. Trachea is midline. No JVD. CHEST: Clear to auscultation with good inspiratory and expiratory effort. HEART: Regular rate and rhythm. ABDOMEN: Soft, flat, and nontender with hypoactive bowel sounds. PELVIS: Stable with tenderness to palpation to the right hip consistent with his fracture. EXTREMITIES: Neurovascularly intact x4. BACK: By report is atraumatic and nontender. LABORATORY FINDINGS: White blood cell count 14.8, hemoglobin 12.9, hematocrit 38.5, and platelets 305. Sodium 128, potassium 4.1, chloride 95, CO2 of 23, BUN 10, creatinine 0.87, and glucose 106. PTT 13 and INR 1.0. RADIOGRAPHIC REPORTS: AP chest x-ray showed no active intrathoracic disease. Views of the right hip show a lucency along the central aspect of the acetabulum and superior pubic ramus region, although this may be related to rotation, the possibility of acetabular or superior pubic rami injury is not excluded. CT of the pelvis without contrast shows a complex comminuted right acetabular fracture with involvement of the obturator ring. ASSESSMENT AND PLAN: 1. Status post ground-level fall. 2. Right acetabular fracture, complex, closed. 3. Acute pain secondary to above. 4. History of coronary artery disease, adrenal insufficiency, Parkinson's, and hypertension. 5. Hyponatremia, chronic, likely related to Topaz's. Plan will be to make the patient n.p.o., move to the surgical floor. He will have pulmonary toilet, gastritis and mechanical VTE prophylaxis in addition to his pain management. Postoperatively, we will begin physical and occupational therapy. Dr. Mireles has been notified. He will evaluate the patient. Initially by ER report, he plans on taking the patient to the operating room today. We will await for him to evaluate the patient for final determination. The evaluation, examination, laboratory, and radiographic findings will be discussed with Dr. Velez after this dictation. Job ID: [id number]
[2019-11-10] MEDS ORDERED: Sodium Chloride 0.9% 1,000 ML IV SCH (17:31)
[2019-11-10] MEDS ORDERED: Dextrose 5% in Water 1,000 ML IV PRN (17:31)
[2019-11-10] MEDS ORDERED: Dextrose 50% Abboject 50 ML SYRINGE SLOW IVP PRN (17:31)
[2019-11-10] MEDS ORDERED: Ondansetron ODT 4 MG TAB PO PRN (17:31)
[2019-11-10] MEDS ORDERED: Morphine 4 MG/ML VIAL SLOW IVP PRN (17:31)
[2019-11-10] MEDS ORDERED: Ondansetron PF 4 MG/2 ML Vial IVP PRN (17:31)
[2019-11-10] MEDS ORDERED: Morphine 2 MG/ML SYRINGE SLOW IVP PRN (17:31)
[2019-11-10] MEDS ORDERED: hydrALAZINE 20 MG/ML VIAL SLOW IVP PRN (17:31)
[2019-11-10] MEDS: Acetaminophen 500 MG TAB PO SCH ×2 (19:15→23:20)
[2019-11-10] MEDS: Acetaminophen/Codeine 30-300mg Tablet PO PRN (19:15)
[2019-11-10 19:28] VITALS: BMI 27.4
[2019-11-10] MEDS: Ibuprofen 600 MG TAB PO SCH (20:20)
--- NOTE | 2019-11-10 20:48 | RAD ---
XR Pelvis Minimum 3 Views HISTORY: Right hip pain FINDINGS: There is a fracture involving the right acetabulum and obturator ring.
--- NOTE | 2019-11-10 21:50 | CON ---
DATE OF CONSULTATION: REASON FOR CONSULTATION: Right acetabular fracture, pubic rami fracture. CONSULTING PHYSICIAN: Dr. Clayton Hicks. CHIEF COMPLAINT: Right hip pain. HISTORY OF PRESENT ILLNESS: Mr. Sepulveda is a 74-year-old man with complex past medical history including previous CABG, hypertension, coronary artery disease, peripheral vascular disease, diabetes, [place]'s crisis/adrenal insufficiency, Parkinson's disease, presented to emergency department via EMS with right hip pain. The patient lives at [facility] for the last 5 years. The patient states that he rolled out of bed and fell onto his right hip onto the floor. He had immediate right hip pain. He does not remember the fall himself. Remembers not being able to get up from a supine position with significant right hip pain. He was transferred to the emergency department via EMS. In the emergency department, x-rays demonstrated a complex right acetabular fracture. Orthopedics was consulted secondary to his fracture. The patient was seen and evaluated in the hospital. ALLERGIES: TRAMADOL AND STATINS. PAST MEDICAL HISTORY: Parkinson's, [place]'s crisis/adrenal insufficiency, coronary artery disease, peripheral vascular disease, hypertension. PAST SURGICAL HISTORY: Inguinal repair, appendectomy, tonsillectomy, coronary artery bypass graft x3 vessels. CURRENT MEDICATIONS: 1. Aspirin. 2. Carbidopa/levodopa. 3. Gabapentin. 4. Metoprolol. 5. MiraLAX. 6. Cymbalta. 7. Hydrocortisone. 8. Losartan. 9. Pramipexole. 10. Tylenol with codeine. 11. Calcium. 12. Amlodipine. SOCIAL HISTORY: The patient resides in the [facility]. He no longer smokes or drinks. He quit several years ago. Denies any illicit drug use. REVIEW OF SYSTEMS: Complete 10 systems reviewed, is negative with the exception of right hip pain. PHYSICAL EXAMINATION: VITAL SIGNS: Blood pressure 138/80, heart rate 68, respirations 18, oxygen saturation 93% on room air, and temperature is 98.8. GENERAL: Alert and oriented x3, in no acute distress. He is resting comfortably in bed. HEENT: Normocephalic and nontraumatic. RESPIRATORY: Nonlabored. CARDIOVASCULAR: Regular rate. ABDOMEN: Soft, nontender, nondistended. PSYCHIATRIC: Normal mood and affect. MUSCULOSKELETAL: Evaluation of the right lower extremity demonstrate tenderness to palpation about the right hip area. He has pain with logrolling of the right hip area. No ecchymosis noted along the right hip, knee, or ankle/foot. No tenderness to palpation about the right hip, knee, ankle, or foot. Evaluation of left lower extremity demonstrates no tenderness to palpation or pain on passive range of motion of left hip, hip, knee, ankle, foot. No ecchymosis, lacerations, or abrasions noted along left lower extremity. Evaluation of bilateral upper extremities demonstrate some senile purpura on the dorsal aspect of bilateral hands. There is no tenderness to palpation or pain on active range of motion of bilateral shoulders, elbows, wrist, or hands. NEUROVASCULAR: Sensation intact to light touch, L4 through S1 dermatomes of bilateral lower extremities and radial, ulnar, and median nerve distribution of bilateral upper extremities. Cap refill is less than 2 seconds in all digits and he has 1+ DP and PT pulses in bilateral lower extremities. 2+ radial pulses in bilateral upper extremities. IMAGING DATA: AP chest demonstrates no acute abnormalities. AP pelvis demonstrates right acetabular fracture. CT scan of the pelvis demonstrates complex comminuted right acetabular fracture with involvement of the posterior column and posterior wall. He has concentric reduction of the right hip. LABORATORY DATA: White count is 14.8, hematocrit is 38.5, hemoglobin is 12.9, platelets 305. Sodium is 128, potassium 4.1, chloride 95, bicarb 23, BUN 10, creatinine 0.87, and glucose 106. ASSESSMENT AND PLAN: A 74-year-old male, status post ground level fall with a comminuted right acetabular fracture involving the posterior column and posterior wall in addition to superior right pubic rami fracture. The patient has several medical comorbidities. Bone quality on imaging looks very poor as well. I had a very long discussion with the patient discussing possible operative intervention versus closed treatment without manipulation and possible total hip arthroplasty in the future. The patient does not want to proceed with any surgical intervention at this time. He is nonweightbearing on his right lower extremity for approximately 8 to 10 weeks. He will be admitted by the Trauma Services. Orthopedics will follow and be on standby. In regard to his nonoperative management, he has concentric reduction of his hip joint and secondary congruence of his comminuted acetabular fracture. Again, given his poor quality of bone and medical comorbidities, I think he would be a poor candidate for surgical intervention at this point. The patient is in agreement with the plan of nonoperative measures at this time allowing the fractures to heal and, if he has pain down the road once the bones heal, go back for a right total hip arthroplasty; however, he would be high risk for right total hip arthroplasty given his medical comorbidities. He did verbalize understanding of this. We will arrange close follow up for Mr. Sepulveda for repeat imaging to ensure he has continued concentric reduction of the right hip joint. Job ID: [id number] [facility]
[2019-11-11] MEDS: Acetaminophen 500 MG TAB PO SCH ×3 (05:17→17:42)
[2019-11-11] MEDS: Ibuprofen 600 MG TAB PO SCH ×3 (05:17→20:08)
[2019-11-11 05:57] LABS: #Basophils 0.1 thou/uL (0.0-0.2); #Eosinphils 0.6 thou/uL (0.0-0.7); #Lymphocytes 2.4 thou/uL (1.20-3.40); #Monocytes 0.9 thou/uL (0.11-0.59); #Neutrophils 7.1 thou/uL (1.40-6.50); %Lymphocytes 21.8 % (21.0-51.0); %Monocytes 8.2 % (0.0-10.0); Hemoglobin 12.1 g/dL (14.0-18.0); Mean Corpuscular HGB CONC 34.1 g/dL (32.0-36.0); Mean Corpuscular Hemoglobin 30.5 pg (27.0-31.0); Mean Corpuscular Volume 89.2 fL (78.0-98.0); Mean Platelet Volume 6.2 fL (7.4-10.4); Platelet Count 288 thou/uL (130-400); RBC Distribution Width 12.1 % (11.5-14.5); Red Blood Cell (RBC) Count 3.96 mill/uL (4.70-6.10); White Blood Cell (WBC) Count 11.1 thou/uL (4.8-10.8)
[2019-11-11 06:16] LABS: Phosphorus 2.9 mg/dL (2.3-4.7)
[2019-11-11 06:18] LABS: Anion Gap 10 mmol/L (10-20); BUN (Urea Nitrogen) 11 mg/dL (8.4-25.7); Calc. Creatinine Clearance 88 mL/min (70-130); Calcium 8.8 mg/dL (7.8-10.44); Carbon Dioxide 25 mmol/L (23-31); Chloride 97 mmol/L (98-107); Estimated GFR-MDRD 86; Glucose 89 mg/dL (83-110); Magnesium 1.6 mg/dL (1.6-2.6); Potassium 4.3 mmol/L (3.5-5.1); Sodium 128 mmol/L (136-145)
[2019-11-11] MEDS: Acetaminophen/Codeine 30-300mg Tablet PO PRN ×2 (06:25→11:56)
[2019-11-11] MEDS: Metoprolol Tartrate 25 MG TAB PO SCH ×2 (08:43→20:08)
[2019-11-11] MEDS: Hydrocortisone 10 mg Tablet PO SCH ×2 (08:43→20:08)
[2019-11-11] MEDS: Losartan 25 MG TAB PO SCH (08:43)
[2019-11-11] MEDS: Cyclobenzaprine 10 MG TAB PO PRN ×2 (08:44→20:08)
[2019-11-11] MEDS: Senokot S 8.6-50 MG TAB PO SCH ×2 (08:45→20:08)
[2019-11-11] MEDS: Carbidopa/Levodopa 25-100 mg Tablet PO SCH ×3 (08:45→20:08)
[2019-11-11] MEDS: Polyethylene Glycol 3350 17 GM Packet PO SCH (08:45)
--- NOTE | 2019-11-11 10:33 | PRG ---
DATE OF SERVICE: 11/11/2019 SUBJECTIVE: The patient was seen and evaluated in the hospital where his pain is well controlled. He has no acute events overnight. OBJECTIVE: VITAL SIGNS: Temperature 98.6, pulse 91, respirations 18, 95% on 2L nasal cannula, blood pressure 164/69. EXTREMITIES: Evaluation of the right lower extremity demonstrates tender to palpation around the right hip. Log rolling was not performed. Range of motion of the right hip was not performed secondary to his known fracture. No tenderness to palpation about the right knee or ankle. No open wounds, lacerations, or abrasions noted. Secondary survey of bilateral upper extremities demonstrates no tenderness to palpation. No pain on passive range of motion of bilateral cervical shoulders, elbows, wrists, or hands. Evaluation of left lower extremity demonstrates no tenderness to palpation. No pain on passive range of motion of left hip, knee, ankle, or foot. LABORATORY DATA: White count 11.1, hemoglobin 12.1, hematocrit 35.3, platelets 288. Sodium 128, potassium 4.3, chloride 97, bicarb 25, creatinine 0.87, magnesium is 1.6. Imaging: Judet view demonstrates a posterior wall, posterior column fracture with involvement of the pubic root, concentric hip reduction. ASSESSMENT AND PLAN: A 74-year-old gentleman, status post ground level fall with a comminuted right acetabular fracture. Given the patient's medical comorbidities and very poor quality of bone, we would likely continue nonoperative measures now the fractures to heal conservatively. If he has persistent pain over the next 3 to 4 months, proceed with total hip arthroplasty. Discussed the case with Dr. Rubi, our pelvis/acetabular colleague, he agrees with our plan. He is going to follow up with Dr. Rubi in the event that he develops protrusio or hip dislocation over the next several weeks, he will be available to address this surgically. Orthopedics will be on standby. Please call with questions [phone]. Job ID: [id number]
--- NOTE | 2019-11-11 13:45 | PRG ---
DATE OF SERVICE: 11/11/2019 SUBJECTIVE: Mr. Sepulveda is a 74-year-old male, status post ground level fall. He sustained right comminuted acetabular fracture. Upon discussion with Orthopedic, the patient decided to have right acetabular fracture, not conservative treatment. The patient also has history of coronary artery disease; adrenal insufficiency; Parkinson; hypertension, unstable, and treated. The patient reports pain is well controlled. Vital signs have been stable. He tolerated with regular diet. He has not yet working with physical therapy today. OBJECTIVE: GENERAL: The patient is lying in bed comfortable with no acute respiratory distress. VITAL SIGNS: Temperature 98.2, heart rate 73, respiratory rate 18, O2 saturation 96% on 2 L, and blood pressure 114/60. LUNGS: Clear bilaterally. HEART: Regular rate and rhythm. ABDOMEN: Soft, nondistended. EXTREMITIES: Neurovascularly intact x4. NEUROLOGIC: No focal neurology deficits. ASSESSMENT: 1. Status post ground level fall. 2. Right acetabular fracture. 3. History of coronary artery disease. 4. Adrenal insufficiency. 5. Parkinson's. 6. Hypertension. 7. Chronic hyponatremia. PLAN: Plan will be, encourage working with physical therapy and occupational therapy. Initiate pharmacological DVT prophylaxis. Continue supportive care. Trauma bowel regimen. Anticipate placement in rehabilitation facility. The patient was seen and evaluated by Dr. Velez on rounds this morning. Job ID: [id number]
[2019-11-11] MEDS: Gabapentin 100 MG CAP PO SCH ×2 (14:29→20:09)
[2019-11-11] MEDS: Enoxaparin Sodium 40 MG/0.4 ML SYRINGE SC SCH (20:09)
[2019-11-12] MEDS: Acetaminophen 500 MG TAB PO SCH ×5 (00:30→23:56)
[2019-11-12] MEDS: Cyclobenzaprine 10 MG TAB PO PRN (06:08)
[2019-11-12] MEDS: Ibuprofen 600 MG TAB PO SCH ×3 (06:08→21:37)
[2019-11-12] MEDS: Losartan 25 MG TAB PO SCH (08:58)
[2019-11-12] MEDS: Senokot S 8.6-50 MG TAB PO SCH ×2 (08:58→21:29)
[2019-11-12] MEDS: Carbidopa/Levodopa 25-100 mg Tablet PO SCH ×3 (08:58→21:29)
[2019-11-12] MEDS: Hydrocortisone 10 mg Tablet PO SCH ×2 (08:58→21:30)
[2019-11-12] MEDS: Gabapentin 100 MG CAP PO SCH ×3 (08:58→21:29)
[2019-11-12] MEDS: Metoprolol Tartrate 25 MG TAB PO SCH ×2 (08:58→21:29)
[2019-11-12] MEDS: Polyethylene Glycol 3350 17 GM Packet PO SCH (08:59)
--- NOTE | 2019-11-12 13:46 | PRG ---
DATE OF SERVICE: 11/12/2019 SUBJECTIVE: The patient remains on the surgical floor. He is status post a fall from his bed onto the floor landing on his right hip. The patient sustained a right acetabular fracture, that is being treated nonoperatively, and he is currently awaiting placement. He is tolerating a diet. His pain is controlled. PHYSICAL EXAMINATION: VITAL SIGNS: Temperature 97.9, heart rate 91, blood pressure 138/70, and oxygen saturation 97% on room air. GENERAL: The patient is resting comfortably at the side of the bed. The therapists were actually working with him when we saw him this morning. He is awake, conversant, and appropriate and cooperative. HEENT: Unremarkable. LUNGS: Respirations appear nonlabored. EXTREMITIES: The patient is moving all 4 extremities. He is cooperating with the therapist. LABORATORY DATA/RADIOGRAPHIC DATA: There are no labs or radiographs to review this morning. ASSESSMENT/PLAN: 1. Status post ground-level fall. 2. Right acetabular fracture, treated conservatively. 3. Deep pain secondary to above, improved. 4. History of coronary artery disease, adrenal insufficiency, Parkinson's, and hypertension. 5. Hyponatremia, likely secondary to Cavalier's, present on admission, chronic. PLAN: Plan will be to continue supportive care. Encourage physical and occupational therapy and await placement determination. Currently, we are looking to have the patient return to [facility] where he came from. The patient was evaluated this morning with Dr. Yates during rounds. Job ID: [id number]
[2019-11-12] MEDS: Pramipexole Di-HCl 0.25 MG TAB PO SCH (21:29)
[2019-11-12] MEDS: Enoxaparin Sodium 40 MG/0.4 ML SYRINGE SC SCH (21:30)
[2019-11-12] MEDS: Acetaminophen/Codeine 30-300mg Tablet PO PRN (21:37)
[2019-11-13] MEDS: Acetaminophen 500 MG TAB PO SCH ×3 (06:41→18:13)
[2019-11-13] MEDS: Ibuprofen 600 MG TAB PO SCH ×3 (06:41→21:30)
[2019-11-13] MEDS: Gabapentin 100 MG CAP PO SCH (08:50)
[2019-11-13] MEDS: Hydrocortisone 10 mg Tablet PO SCH ×2 (08:50→21:30)
[2019-11-13] MEDS: Carbidopa/Levodopa 25-100 mg Tablet PO SCH ×3 (08:50→21:31)
[2019-11-13] MEDS: Polyethylene Glycol 3350 17 GM Packet PO SCH (08:50)
[2019-11-13] MEDS: Losartan 25 MG TAB PO SCH (08:50)
[2019-11-13] MEDS: Metoprolol Tartrate 25 MG TAB PO SCH ×2 (08:50→21:31)
[2019-11-13] MEDS: Senokot S 8.6-50 MG TAB PO SCH ×2 (08:50→21:31)
[2019-11-13 12:02] LABS: #Eosinphils 0.9 thou/uL (0.0-0.7); #Lymphocytes 2.4 thou/uL (1.20-3.40); #Monocytes 1.2 thou/uL (0.11-0.59); #Neutrophils 5.5 thou/uL (1.40-6.50); %Basophils 0.5 % (0.0-1.0); %Lymphocytes 23.9 % (21.0-51.0); %Monocytes 11.9 % (0.0-10.0); %Neutrophils 54.7 % (42.0-75.0); Hemoglobin 11.8 g/dL (14.0-18.0); Mean Corpuscular HGB CONC 32.3 g/dL (32.0-36.0); Mean Corpuscular Hemoglobin 29.3 pg (27.0-31.0); Mean Corpuscular Volume 90.6 fL (78.0-98.0); Mean Platelet Volume 6.4 fL (7.4-10.4); Platelet Count 265 thou/uL (130-400); RBC Distribution Width 12.3 % (11.5-14.5); Red Blood Cell (RBC) Count 4.02 mill/uL (4.70-6.10); White Blood Cell (WBC) Count 10.1 thou/uL (4.8-10.8)
[2019-11-13 12:27] LABS: Anion Gap 12 mmol/L (10-20); BUN (Urea Nitrogen) 19 mg/dL (8.4-25.7); Calc. Creatinine Clearance 73 mL/min (70-130); Calcium 8.3 mg/dL (7.8-10.44); Carbon Dioxide 25 mmol/L (23-31); Chloride 99 mmol/L (98-107); Estimated GFR-MDRD 70; Glucose 76 mg/dL (83-110); Magnesium 2.1 mg/dL (1.6-2.6); Phosphorus 3.4 mg/dL (2.3-4.7); Potassium 3.9 mmol/L (3.5-5.1); Sodium 132 mmol/L (136-145)
--- NOTE | 2019-11-13 16:20 | RAD ---
EXAM: XR Pelvis Minimum 3 Views PROVIDED CLINICAL HISTORY: Right acetabular fracture. Follow-up evaluation. COMPARISON: 11/10/2019 FINDINGS: Again noted is a markedly comminuted fracture involving the right acetabulum which involves the aceta bular roof and medial as well as posterior and anterior carlisle of the acetabulum. There are fractures seen involving the right superior pubic ramus with probable fracture involving the inferior pubic ramus. 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 Extensive vascular calcifications are seen involving the visualized upper abdominal aorta as well as the iliac and visualized femoral arteries. Surgical clips overlie the medial left thigh. IMPRESSION: Complex and markedly comminuted right acetabular fracture with obturator ring involvement.
--- NOTE | 2019-11-13 18:29 | PRG ---
DATE OF SERVICE: 11/13/2019 SUBJECTIVE: The patient was seen this morning and again this afternoon during rounds. On evaluation in the morning times, the patient was asleep and had to be shaken to be aroused; however, he was arousable and answered questions appropriately. The patient had received Tylenol No.3, gabapentin, and Flexeril, subsequently making him very sleepy. He was hemodynamically stable and had no complaints at that time. When he was later re-evaluated in the afternoon, he was arousable to name and was having lunch. OBJECTIVE: VITAL SIGNS: Temperature 97.8, pulse 81, respirations 16, oxygen saturation 95% on room air, blood pressure 146/71. GENERAL: Well-appearing elderly male, lying in bed, asleep, with no signs of acute distress. PULMONARY: Equal chest rise and fall. Clear breath sounds bilaterally. No signs of acute respiratory distress. CARDIAC: Regular rate and rhythm. GI: Abdomen is soft, nontender, nondistended. EXTREMITIES: 2+ pulses in all extremities. Gross motor and sensation are intact. No significant swelling noted. NEURO: GCS is 15 when aroused. Pupils equal, round, and reactive to light bilaterally. The patient has equal strength bilaterally, and there appears to be no stroke symptoms such as facial droop or speech slurring. LABORATORY FINDINGS: White count 10.1, hemoglobin 11.8, hematocrit 36.4, platelets 265. Sodium 132, potassium 3.9, chloride 99, bicarb 25, BUN 19, creatinine 1.04, phosphorus 3.4, magnesium 2.1. DIAGNOSTIC FINDINGS: Pelvic x-ray completed this afternoon demonstrates complex and markedly comminuted right acetabular fracture with obturator ring involvement. ASSESSMENT: 1. Status post fall from bed at nursing facility. 2. Right acetabular fracture, nonoperative. 3. Right pubic rami fracture, nonoperative. 4. History of Parkinson's, [place]'s/adrenal insufficiency, coronary artery disease, hypertension, and chronic hyponatremia. 5. Acute altered mental status, likely due to overmedication. PLAN: Continue current regular diet. We will add Ensure. We will discontinue the patient's Tylenol No.3, Flexeril, and gabapentin at this time. Continue Tylenol and ibuprofen. We will re-evaluate the patient's pain this afternoon and restart pain medications as indicated. The patient is allergic to tramadol, so we will have to consider what medications may work best for him. Orthopedic Surgery ordered x-ray of the pelvis. After the patient worked more aggressively with Physical Therapy and may continue to recommend no surgical intervention and he is ready for discharge. He is pending return to [facility]. He did receive one dose of lactulose today, and we are pending a bowel movement. The patient will likely be able to be discharged home. As long as his pain is well controlled, then his mentation is at baseline. This patient was discussed with Dr. Velez before this dictation. Job ID: [id number]
[2019-11-13] MEDS: Pramipexole Di-HCl 0.25 MG TAB PO SCH (21:30)
[2019-11-13] MEDS: Enoxaparin Sodium 40 MG/0.4 ML SYRINGE SC SCH (21:30)
[2019-11-13 23:57] VITALS: TEMP 97.8
[2019-11-14] MEDS: Acetaminophen 500 MG TAB PO SCH ×3 (00:15→11:15)
[2019-11-14] MEDS: Ibuprofen 600 MG TAB PO SCH (05:37)
[2019-11-14] MEDS: Polyethylene Glycol 3350 17 GM Packet PO SCH (09:58)
[2019-11-14] MEDS: Senokot S 8.6-50 MG TAB PO SCH (09:59)
[2019-11-14] MEDS: Hydrocortisone 10 mg Tablet PO SCH (09:59)
[2019-11-14] MEDS: Metoprolol Tartrate 25 MG TAB PO SCH (09:59)
[2019-11-14] MEDS: Losartan 25 MG TAB PO SCH (09:59)
[2019-11-14] MEDS: Carbidopa/Levodopa 25-100 mg Tablet PO SCH (09:59)
[2019-11-14 11:14] VITALS: BP 152/60
--- NOTE | 2019-11-14 12:48 | DIS ---
DATE OF ADMISSION: 11/10/2019 DATE OF DISCHARGE: 11/14/2019 ADMISSION DIAGNOSES: 1. Status post ground-level fall. 2. Right acetabular fracture, complex, closed. 3. Acute pain secondary to above. 4. History of coronary artery disease, renal insufficiency, Parkinson's, and hypertension. 5. Hyponatremia, chronic, likely related to medicines, present on admission. CONSULTATIONS: Orthopedics, Dr. Mireles and Dr. Rubi. SUMMARY: The patient is a 74-year-old man, who lives at [facility], who reportedly fell out of his bed on the day of admission. He was brought to the emergency department, where he underwent evaluation and examination and was noted to have the above injuries. The case was reviewed by Dr. Mireles and by Dr. Rubi, who both agreed this will be treated nonoperatively with serial followup radiographs and not weightbearing on his affected side. The patient was able to work with Physical Therapy and demonstrated that he was able to non-weight bear. The patient will be discharged back to [facility] and at time of discharge, his pain was controlled, he was tolerating a diet and again, he was working with therapy. He will follow up with Dr. Rubi in his clinic in 3 to 4 weeks or sooner as needed. Job ID: [id number]
--- NOTE | 2019-11-15 07:08 | PQF ---
BETH CADET GARY PA-C [id number] [facility] A 3332 [id number] CLINICAL DOCUMENTATION CLARIFICATION FORM: POST DISCHARGE Addendum to original discharge summary date: ____ Late entry note date: __ DATE: 11/15/2019 ATTN: Jr Davis Please exercise your independent, professional judgment in responding to the clarification form. Clinical indicators are provided on the bottom of this form for your review Please check appropriate box(s): Encephalopathy: Etiology: [ ] Hypertensive [ ] Metabolic [ ] Toxic [X ] Drug induced: ____Gabapentin and Flexeril [ ] Other (please specify) [ ] Unspecified [ X ] Transient Alteration of Awareness [ ] Other diagnosis [ ] Unable to determine In addition, please specify: Present on Admission (POA): [ ] Yes [ ] No [ X ] Unable to determine For continuity of documentation, please document condition throughout progress notes and discharge summary. Thank You. CLINICAL INDICATORS - SIGNS / SYMPTOMS / LABS PN p1 11/13 Norma CLARK On evaluation in the morning times, the pt was asleep and had to be shaken to be aroused; however he was arousable and answered questions appropriately PN p1 2 Norma CLARK The patient had received tylenol No.3, Gabapentin and Flexeril, subsequently making him very sleepy PN p2 2 Norma CLRAK Acute altered mental status likely due to overmedication RISK FACTORS H&P p1 2 74 years-old H&P p1 2 Parkinson Disease H&P p1 2 [place]ek[place]'s crisis/ Adrenal insufficiency H&P p1 2 HTN H&P p2 2 Former Smoker H&P p3 2 s/p ground level fall H&P p3 11/10 Chronic Hyponatremia TREATMENTS: DEC 01 IVF 1L DEC 01 Neurontin 100mg po DEC 02 Sinemet 1 tab po DEC 02 Cortef 10mg po DEC 02 Lactulose 30gm po PN p2 11/13 will discontinue the patient's Tylenol no.3 , Flexeril and gabapentin at this time (This form is maintained as a part of the permanent medical record) 2014 [employer]. All Rights Reserved [email or web address]
== END 2019-11-14 15:12 | disposition home or self-care (01) | DRG 535 ==
LOC: ERS 10:37 → SURG A 17:00
PROVIDERS: ADMIT Orthopaedic Surgery; ATTEND Orthopaedic Surgery
DX: S32.411A Displaced fracture of anterior wall of right acetabulum, initial encounter for closed fracture (principal); G92 Toxic encephalopathy; S32.591A Other specified fracture of right pubis, initial encounter for closed fracture; E87.1 Hypo-osmolality and hyponatremia; E27.1 Primary adrenocortical insufficiency; S32.421A Displaced fracture of posterior wall of right acetabulum, initial encounter for closed fracture; I25.10 Atherosclerotic heart disease of native coronary artery without angina pectoris; G20 Parkinson's disease; I10 Essential (primary) hypertension; T42.6X5A Adverse effect of other antiepileptic and sedative-hypnotic drugs, initial encounter; T48.1X5A Adverse effect of skeletal muscle relaxants [neuromuscular blocking agents], initial encounter; W06.XXXA Fall from bed, initial encounter; Y92.129 Unspecified place in nursing home as the place of occurrence of the external cause; Z79.899 Other long term (current) drug therapy; Z79.82 Long term (current) use of aspirin; Z95.1 Presence of aortocoronary bypass graft
CPT/HCPCS: 36415; 71045; 72190; 72192; 80048; 80053; 83735; 84100; 85025; 85610; 94640; G0390; J0360; J1650; J2270; J7620

== ENCOUNTER 2019-11-24 11:57 | Inpatient (IN) | payer MEDICARE, MEDICAID ==
[2019-11-24 12:45] LABS: Hemoglobin 12.1 g/dL (14.0-18.0); Mean Corpuscular HGB CONC 33.8 g/dL (32.0-36.0); Mean Corpuscular Hemoglobin 30.6 pg (27.0-31.0); Mean Corpuscular Volume 90.5 fL (78.0-98.0); Mean Platelet Volume 6.7 fL (7.4-10.4); Platelet Count 406 thou/uL (130-400); RBC Distribution Width 12.2 % (11.5-14.5); Red Blood Cell (RBC) Count 3.94 mill/uL (4.70-6.10); White Blood Cell (WBC) Count 30.3 thou/uL (4.8-10.8)
[2019-11-24 12:54] LABS: ALT (SGPT) 12 U/L (8-55); AST (SGOT) 32 U/L (5-34); Albumin 4.3 g/dL (3.4-4.8); Alkaline Phosphatase 136 U/L (40-110); Anion Gap 16 mmol/L (10-20); BUN (Urea Nitrogen) 37 mg/dL (8.4-25.7); Bilirubin, Total 1.6 mg/dL (0.2-1.2); Calc. Creatinine Clearance 0 mL/min (70-130); Calcium 9.7 mg/dL (7.8-10.44); Carbon Dioxide 21 mmol/L (23-31); Chloride 95 mmol/L (98-107); Estimated GFR-MDRD 63; Glucose 100 mg/dL (83-110); Potassium 5.5 mmol/L (3.5-5.1); Protein, Total 8.3 g/dL (5.8-8.1); Sodium 126 mmol/L (136-145)
--- NOTE | 2019-11-24 12:54 | CT ---
CT HEAD WITHOUT IV CONTRAST COMPARISON: 04/18/2019 HISTORY: Altered mental status. TECHNIQUE: Axial CT imaging at 5 mm intervals from vertex through skull base without contrast FINDINGS: There is decreased attenuation in the periventricular white matter which is nonspecific but likely re flective of chronic small vessel ischemic changes. Stable low-density areas are again seen in the inferior aspect of each basal ganglia likely due to remote lacunar infarctions. There is mild cerebral volume loss. The ventricular system is normal in size, shape, and position for the degree of sulcal atrophy. There is no evidence of an acute infarction, hemorrhage, mass effect, or midline shift. Visualized paranasal sinuses are clear. Osseous structures appear intact. IMPRESSION: 1. No acute intracranial abnormality demonstrated. 2. Chronic small vessel ischemic changes and cerebral volume loss. 3. Remote lacunar infarctions each basal ganglia.
[2019-11-24 12:59] LABS: Band 11 % (5-11); Large Platelets SLIGHT; Lymphocytes 8 % (21-51); MDiff Complete? YES; Monocytes 8 % (0-10); Neutrophil 73 % (42-75); Platelet Clumps SLIGHT; Platelet Morphology Comment Appears Increased; RBC Morphology Normal; Vacuoles SLIGHT
--- NOTE | 2019-11-24 13:24 | RAD ---
EXAM: Chest one view: HISTORY: Headache slowly respond altered mental status COMPARISON: 11/10/2019 FINDINGS: Stable postoperative midline sternotomy. Heart size: Within normal limits. Lungs: Clear of acute process. No evidence for confluent pneumonia, pleural effusion, acute edema, or pneumothorax, or other signifi cant acute process. IMPRESSION: No significant acute intrathoracic disease. Atherosclerosis of the aorta.
[2019-11-24 13:36] LABS: CKMB 1.6 ng/mL (0-6.6)
[2019-11-24 14:15] LABS: Bacteria/HPF 4+ HPF (None Seen); Bilirubin Negative (Negative); Blood, Urine Trace (Negative); Clarity Turbid (Clear); Glucose, Urine (Dipstick) Normal (Negative); Leukocyte 500 Leu/uL (Negative); Nitrite Negative (Negative); Protein, Urine (Dipstick) 30 mg/dL (Neg-Trace); Squamous Epithelial 0-3 HPF (0-3); Urobilinogen 6 mg/dL (Less than 2); WBC/HPF Greater than 50 HPF (0-3)
[2019-11-24] MEDS ORDERED: Cefepime 2 GM VIAL ONE (14:19)
[2019-11-24] MEDS ORDERED: Sodium Chloride 0.9% 100 ML ONE (14:20)
[2019-11-24 16:13] LABS: Troponin I 0.069 ng/mL (< 0.028)
[2019-11-24] MEDS ORDERED: Acetaminophen 325 MG TAB PO PRN ×2 (18:12→19:12)
[2019-11-24] MEDS ORDERED: Ondansetron ODT 4 MG TAB SL PRN (18:12)
[2019-11-24] MEDS ORDERED: Ondansetron PF 4 MG/2 ML Vial IVP PRN ×2 (18:12→19:12)
[2019-11-24] MEDS ORDERED: Ondansetron ODT 4 MG TAB PO PRN (19:12)
[2019-11-24] MEDS: Famotidine 20 MG TAB PO SCH (21:47)
[2019-11-24] MEDS: cefTRIAXone\\ROCEPHIN 1 GM in Sodium Chloride 0.9% 100 ML IVPB SCH (21:48)
[2019-11-24] MEDS: Hydrocortisone Sod Succ/PF 100 mg/2 ml Vial IVP SCH (21:48)
[2019-11-24] MEDS: Sodium Chloride 0.9% 1,000 ML IV SCH (21:57)
--- NOTE | 2019-11-25 00:13 | HP ---
CHIEF COMPLAINT: He has been slow to respond in the correction. HISTORY OF PRESENT ILLNESS: The history of present illness is taken primarily from the review of the ER records as the patient says he "feels well" and does not know why he is in the hospital. Mr. Sepulveda is a pleasant 74-year-old gentleman, who is a resident of a nursing facility. He recently fell out of the bed and fractured his acetabulum. He was treated in the hospital and released. He said he was getting physical therapy in the nursing facility and says he does not really know why he was brought to the hospital. However, according to the ER records, he was having some slowness to respond and was disoriented originally. He was brought to the ER and lab work revealed that he had hyponatremia, hyperkalemia, [place] [id number] and findings suggestive of urinary tract infection. He is therefore being admitted for UTI with sepsis. He did have a temperature as well and elevated heart rate. Currently, the patient is oriented x3. He knows where he is. He knows the month and the year, and he knows he is at [facility]. REVIEW OF SYSTEMS: All systems were reviewed and are negative except for that mentioned in the history of present illness. PAST MEDICAL HISTORY: Significant for Ramón's disease, coronary artery disease, hypertension, Parkinson disease. PAST SURGICAL HISTORY: He has had inguinal hernia repair, appendectomy and tonsillectomy. ALLERGIES: TO STATINS AND TRAMADOL. SOCIAL HISTORY: He currently resides at a nursing facility. He is a nonsmoker and nondrinker. Code status is full code. FAMILY HISTORY: Significant for cancer in the family. MEDICATIONS: His current medications are taken from the ER records and include: 1. Albuterol nebs p.r.n. 2. Aspirin 81 mg daily. 3. Amlodipine 2.5 mg daily. 4. Artificial Tears. 5. Calcium carbonate and citrate daily. 6. Carbidopa-levodopa 100/25 three times a day. 7. Cymbalta 20 mg daily. 8. Colace 100 mg daily. 9. Gabapentin 100 mg twice a day. 10. Hydrocortisone 10 mg twice a day. 11. Ketoconazole topical. 12. Losartan 25 mg daily. 13. Multivitamins daily. 14. Metoprolol tartrate 25 mg twice daily. 15. Pramipexole 0.5 mg once a day. 16. Vitamin D3 of 2000 units daily. 17. Maalox daily. PHYSICAL EXAMINATION: GENERAL: Again, he is alert and oriented x3. He is well developed and well nourished. VITAL SIGNS: Blood pressure is 117/77, heart rate 94, respiratory rate of 22, temperature was 100.1. HEENT: Pupils are equal, round, and reactive. Extraocular muscles are intact. Sclerae anicteric. Throat, no erythema, no exudates. NECK: No adenopathy. No bruits. LUNGS: Clear to auscultation. There is no wheezing, no rales, no rhonchi. CARDIOVASCULAR: He has a normal S1, S2. I did not appreciate an S3 or S4. No murmurs, clicks, or rubs. ABDOMEN: Soft. It is nontender and nondistended. Positive for bowel sounds. No rebound or guarding. No organomegaly. EXTREMITIES: There is no clubbing or cyanosis. He has trace edema. NEUROLOGICAL: He is able to move all extremities. SKIN AND INTEGUMENT: No skin changes. No rash. LABORATORY RESULTS: Sodium is 126, potassium 5.5, chloride is 95, CO2 is 21, BUN of 37, creatinine 1.14, glucose is 100. White blood cell count 30.3, hemoglobin 12.1, hematocrit is 35.7, and platelet count is 406. Urinalysis, he has 4+ bacteria and positive leukocyte esterase. Urine is turbid. ASSESSMENT: This is a pleasant 74-year-old gentleman, who is being admitted for urinary tract infection with sepsis. He will be admitted to telemetry. Started on IV antibiotics. In review of his records, he does not appear to be at risk for multidrug resistant organisms as he only has one urine culture that was positive for strep agalactiae. Therefore, we will go ahead and start him off on Rocephin pending culture results. 1. Ramón's disease. I will place him on stress dose steroids overnight and then resume hydrocortisone at his usual dose. 2. Hypertension. Currently, his blood pressure is stable. We can likely hold his antihypertensives until the a.m. 3. Parkinson disease. This also appears clinically stable. We will go ahead and reconcile and restart his home medications. 4. The patient will be placed on deep venous thrombosis and gastrointestinal prophylaxis. Job ID: [id number]
[2019-11-25 05:06] LABS: Anion Gap 14 mmol/L (10-20); BUN (Urea Nitrogen) 31 mg/dL (8.4-25.7); Calc. Creatinine Clearance 0 mL/min (70-130); Calcium 9.2 mg/dL (7.8-10.44); Carbon Dioxide 22 mmol/L (23-31); Chloride 98 mmol/L (98-107); Estimated GFR-MDRD 78; Glucose 109 mg/dL (83-110); Potassium 4.7 mmol/L (3.5-5.1); Sodium 129 mmol/L (136-145)
[2019-11-25 05:18] LABS: Band 6 % (5-11); Hemoglobin 11.1 g/dL (14.0-18.0); Lymphocytes 2 % (21-51); MDiff Complete? YES; Mean Corpuscular HGB CONC 32.9 g/dL (32.0-36.0); Mean Corpuscular Hemoglobin 29.5 pg (27.0-31.0); Mean Corpuscular Volume 89.8 fL (78.0-98.0); Mean Platelet Volume 6.5 fL (7.4-10.4); Monocytes 4 % (0-10); Neutrophil 88 % (42-75); Platelet Count 492 thou/uL (130-400); Platelet Morphology Comment Appears Increased; RBC Distribution Width 12.3 % (11.5-14.5); RBC Morphology Normal; Red Blood Cell (RBC) Count 3.74 mill/uL (4.70-6.10); White Blood Cell (WBC) Count 26.3 thou/uL (4.8-10.8)
[2019-11-25] MEDS: Hydrocortisone Sod Succ/PF 100 mg/2 ml Vial IVP SCH ×3 (05:42→23:52)
[2019-11-25] MEDS: Famotidine 20 MG TAB PO SCH ×2 (08:43→20:30)
[2019-11-25] MEDS ORDERED: FLU VACC TS2019-20(65YR UP)/PF 180 MCG/0.5 ML SYRINGE IM ONE (09:00)
[2019-11-25] MEDS ORDERED: REFRESH PLUS (Carboxymethylcellulose 0.5%) Opth Drops EA EYE PRN (10:00)
[2019-11-25] MEDS: Sodium Chloride 0.9% 1,000 ML IV SCH ×2 (10:02→21:44)
[2019-11-25] MEDS: Acetaminophen/Codeine 30-300mg Tablet PO PRN ×2 (11:17→20:33)
[2019-11-25] MEDS: hydrALAZINE 20 MG/ML VIAL SLOW IVP PRN (11:32)
--- NOTE | 2019-11-25 13:46 | PDOC.HOSPP ---
- Subjective Encounter Date: 11/25/19 Encounter Time: 13:44 Subjective: Mr. Sepulveda was seen today in follow-up of UTI with sepsis. He does not have any complaints. He still has a poor appetite. No new complaints. - Objective Vital Signs & Weight: Vital Signs (12 hours) Temp Pulse Resp BP Pulse Ox 11/25/19 11:42 158/76 H 11/25/19 11:23 98.1 F 94 18 194/87 H 97 11/25/19 08:36 97.6 F 84 16 175/85 H 95 11/25/19 04:00 97.5 F L 88 18 165/76 H 92 L Weight Weight 166 lb 8 oz I&O: 11/24/19 11/25/19 11/26/19 06:59 06:59 06:59 Intake Total 696 Output Total 0 Balance 696 Result Diagrams: 11/25/19 04:11 11/25/19 04:11 Hospitalist ROS - Medication Medications: Active Medications Generic Name Dose Route Start Last Admin Trade Name Freq PRN Reason Stop Dose Admin Acetaminophen/Codeine Phosphate 1 tab 11/25/19 10:36 11/25/19 11:17 Tylenol #3 PO 1 tab Q8H PRN Administration MOD-SEV PAIN Famotidine 20 mg 11/24/19 21:00 11/25/19 08:43 Pepcid PO 20 mg BID PASHA Administration Hydralazine HCl 10 mg 11/24/19 19:12 11/25/19 11:32 Apresoline SLOW IVP 10 mg Q4H PRN Administration SBP > 180 and HR < 70 Hydrocortisone Sodium Succinate 50 mg 11/24/19 22:00 11/25/19 05:42 Solu-Cortef IVP 50 mg Q8HR PASHA Administration Ceftriaxone Sodium 1 gm/ 100 mls @ 200 mls/hr 11/24/19 20:00 11/24/19 21:48 Sodium Chloride IVPB 100 mls 2000 PASHA Administration Sodium Chloride 1,000 mls @ 75 mls/hr 11/24/19 19:15 11/25/19 10:02 Normal Saline 0.9% IV 1,000 mls .[id number] PASHA Administration - Exam Eye: PERRL Heart: RRR, no murmur, no gallops, no rubs, normal peripheral pulses Respiratory: CTAB, no wheezes, no rales, no ronchi, normal chest expansion, no tachypnea, normal percussion Gastrointestinal: soft, non-tender, non-distended, normal bowel sounds, no palpable masses, no hepatomegaly Extremities: no cyanosis, 1+ LE edema Hosp A/P (1) UTI (urinary tract infection) Status: Acute (2) Sepsis Code(s): A41.9 - SEPSIS, UNSPECIFIED ORGANISM Status: Acute (3) Physical deconditioning Code(s): R53.81 - OTHER MALAISE Status: Acute (4) CAD (coronary artery disease) Code(s): I25.10 - ATHSCL HEART DISEASE OF [place] CORONARY ARTERY W/O ANG PCTRS Status: Chronic Qualifiers: (5) COPD (chronic obstructive pulmonary disease) Status: Chronic (6) Hypertension Code(s): I10 - ESSENTIAL (PRIMARY) HYPERTENSION Status: Chronic Qualifiers: (7) Addisons disease Code(s): E27.1 - PRIMARY ADRENOCORTICAL INSUFFICIENCY Status: Chronic - Plan * UTI with sepsis- his WBC count is a bit lower, and no fever overnight * Will continue Rocephin. Urine culture is growing presumptive E. coli - awaiting sensitivities * Parkinson's disease- stable * HTN- blood pressure is elevated- will re-start his home medications * COPD- stable- continue home medications and PRN Duonebs * Ramón's disease- stable- will discontinue stress dose steroids, and change to his home dose
[2019-11-25] MEDS: Losartan 25 MG TAB PO SCH (20:29)
[2019-11-25] MEDS: Gabapentin 100 MG CAP PO SCH (20:30)
[2019-11-25] MEDS: Hydrocortisone 10 mg Tablet PO SCH (20:30)
[2019-11-25] MEDS: Metoprolol Tartrate 25 MG TAB PO SCH (20:31)
[2019-11-25] MEDS: Pramipexole Di-HCl 0.25 MG TAB PO SCH (20:32)
[2019-11-25] MEDS: cefTRIAXone\\ROCEPHIN 1 GM in Sodium Chloride 0.9% 100 ML IVPB SCH (20:51)
[2019-11-26] MEDS: Hydrocortisone Sod Succ/PF 100 mg/2 ml Vial IVP SCH ×3 (06:02→22:02)
[2019-11-26] MEDS: Acetaminophen/Codeine 30-300mg Tablet PO PRN ×2 (06:04→22:51)
[2019-11-26] MEDS: Hydrocortisone 10 mg Tablet PO SCH ×2 (07:57→22:01)
[2019-11-26] MEDS: Gabapentin 100 MG CAP PO SCH ×2 (07:58→22:02)
[2019-11-26] MEDS: Metoprolol Tartrate 25 MG TAB PO SCH ×2 (07:58→22:01)
[2019-11-26] MEDS: Famotidine 20 MG TAB PO SCH ×2 (07:58→22:02)
[2019-11-26 08:14] LABS: #Lymphocytes 1.2 thou/uL (1.20-3.40); #Monocytes 0.8 thou/uL (0.11-0.59); #Neutrophils 15.5 thou/uL (1.40-6.50); %Basophils 0.2 % (0.0-1.0); %Eosinophils 0.2 % (0.0-10.0); %Lymphocytes 6.6 % (21.0-51.0); %Monocytes 4.4 % (0.0-10.0); %Neutrophils 88.6 % (42.0-75.0); Hemoglobin 11.4 g/dL (14.0-18.0); Mean Corpuscular HGB CONC 32.8 g/dL (32.0-36.0); Mean Corpuscular Volume 91.4 fL (78.0-98.0); Mean Platelet Volume 6.2 fL (7.4-10.4); Platelet Count 511 thou/uL (130-400); RBC Distribution Width 12.2 % (11.5-14.5); Red Blood Cell (RBC) Count 3.79 mill/uL (4.70-6.10); White Blood Cell (WBC) Count 17.5 thou/uL (4.8-10.8)
[2019-11-26 08:39] LABS: Anion Gap 14 mmol/L (10-20); BUN (Urea Nitrogen) 27 mg/dL (8.4-25.7); Calc. Creatinine Clearance 95 mL/min (70-130); Calcium 8.9 mg/dL (7.8-10.44); Carbon Dioxide 19 mmol/L (23-31); Chloride 105 mmol/L (98-107); Estimated GFR-MDRD Greater than 90; Glucose 113 mg/dL (83-110); Potassium 4.2 mmol/L (3.5-5.1); Sodium 134 mmol/L (136-145)
--- NOTE | 2019-11-26 11:41 | PDOC.HOSPP ---
- Subjective Encounter Date: 11/26/19 Encounter Time: 11:40 Subjective: Mr. Sepulveda was seen today in follow-up of UTI with sepsis. He does not have any complaints. He says his appetite has improved. - Objective Vital Signs & Weight: Vital Signs (12 hours) Temp Pulse Pulse Pulse Resp BP BP 11/26/19 09:50 81 85 179/82 H 182/84 H 11/26/19 07:39 98.0 F 74 18 11/26/19 03:38 97.9 F 70 16 11/26/19 00:00 11/25/19 23:53 98.0 F 81 15 BP Pulse Ox 11/26/19 09:50 11/26/19 07:39 187/88 H 95 11/26/19 03:38 163/76 H 93 L 11/26/19 00:00 91 L 11/25/19 23:53 157/74 H 91 L Weight Weight 166 lb 3.2 oz I&O: 11/25/19 11/26/19 11/27/19 06:59 06:59 06:59 Intake Total 696 1167 Output Total 0 Balance 696 1167 Result Diagrams: 11/26/19 08:01 11/26/19 08:01 Hospitalist ROS - Medication Medications: Active Medications Generic Name Dose Route Start Last Admin Trade Name Freq PRN Reason Stop Dose Admin Acetaminophen/Codeine Phosphate 1 tab 11/25/19 10:36 11/26/19 06:04 Tylenol #3 PO 1 tab Q8H PRN Administration MOD-SEV PAIN Cholecalciferol 2,000 units 11/26/19 09:00 11/26/19 07:58 Vitamin D3 PO 2,000 units DAILY PASHA Administration Duloxetine HCl 20 mg 11/26/19 09:00 11/26/19 07:58 Cymbalta PO 20 mg DAILY PASHA Administration Famotidine 20 mg 11/24/19 21:00 11/26/19 07:58 Pepcid PO 20 mg BID PASHA Administration Gabapentin 100 mg 11/25/19 21:00 11/26/19 07:58 Neurontin PO 100 mg BID PASHA Administration Hydralazine HCl 10 mg 11/24/19 19:12 11/25/19 11:32 Apresoline SLOW IVP 10 mg Q4H PRN Administration SBP > 180 and HR < 70 Hydrocortisone 10 mg 11/25/19 21:00 11/26/19 07:57 Cortef PO 10 mg BID PASHA Administration Hydrocortisone Sodium Succinate 50 mg 11/24/19 22:00 11/26/19 06:02 Solu-Cortef IVP 50 mg Q8HR PASHA Administration Ceftriaxone Sodium 1 gm/ 100 mls @ 200 mls/hr 11/24/19 20:00 11/25/19 20:51 Sodium Chloride IVPB 100 mls 2000 PASHA Administration Losartan Potassium 75 mg 11/25/19 21:00 11/25/19 20:29 Cozaar PO 75 mg HS PASHA Administration Metoprolol Tartrate 25 mg 11/25/19 21:00 11/26/19 07:58 Lopressor PO 25 mg BID PASHA Administration Pramipexole Dihydrochloride 0.5 mg 11/25/19 21:00 11/25/19 20:32 Mirapex PO 0.5 mg HS PASHA Administration - Exam Eye: PERRL Heart: RRR, no murmur, no gallops, no rubs, normal peripheral pulses Respiratory: CTAB, no wheezes, no rales, no ronchi, normal chest expansion, no tachypnea, normal percussion Gastrointestinal: soft, non-tender, non-distended, normal bowel sounds, no palpable masses, no hepatomegaly, no splenomegaly Extremities: no cyanosis, no clubbing, 1+ LE edema Neurological: cranial nerve grossly intact, normal sensation to touch Psychiatric: normal affect, normal behavior, A&O x 3 Hosp A/P (1) UTI (urinary tract infection) Status: Acute (2) Sepsis Code(s): A41.9 - SEPSIS, UNSPECIFIED ORGANISM Status: Acute (3) Physical deconditioning Code(s): R53.81 - OTHER MALAISE Status: Acute (4) CAD (coronary artery disease) Code(s): I25.10 - ATHSCL HEART DISEASE OF [place] CORONARY ARTERY W/O ANG PCTRS Status: Chronic Qualifiers: (5) COPD (chronic obstructive pulmonary disease) Status: Chronic (6) Hypertension Code(s): I10 - ESSENTIAL (PRIMARY) HYPERTENSION Status: Chronic Qualifiers: (7) Addisons disease Code(s): E27.1 - PRIMARY ADRENOCORTICAL INSUFFICIENCY Status: Chronic (8) Hyponatremia Code(s): E87.1 - HYPO-OSMOLALITY AND HYPONATREMIA Status: Acute - Plan * UTI with sepsis- the leukocytosis continues to improve * Will continue Rocephin. Urine culture is growing E. 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
[2019-11-26] MEDS ORDERED: Furosemide 20 MG TAB PO SCH (11:45)
[2019-11-26] MEDS: hydrALAZINE 20 MG/ML VIAL SLOW IVP PRN (16:38)
[2019-11-26] MEDS: cefTRIAXone\\ROCEPHIN 1 GM in Sodium Chloride 0.9% 100 ML IVPB SCH (22:00)
[2019-11-26] MEDS: Pramipexole Di-HCl 0.25 MG TAB PO SCH (22:01)
[2019-11-26] MEDS: Losartan 25 MG TAB PO SCH (22:01)
[2019-11-27 04:31] LABS: #Lymphocytes 1.1 thou/uL (1.20-3.40); #Monocytes 0.9 thou/uL (0.11-0.59); #Neutrophils 11.5 thou/uL (1.40-6.50); %Eosinophils 0.2 % (0.0-10.0); %Lymphocytes 8.1 % (21.0-51.0); %Monocytes 6.9 % (0.0-10.0); %Neutrophils 84.8 % (42.0-75.0); Mean Corpuscular HGB CONC 33.5 g/dL (32.0-36.0); Mean Corpuscular Hemoglobin 30.5 pg (27.0-31.0); Mean Platelet Volume 6.2 fL (7.4-10.4); Platelet Count 566 thou/uL (130-400); RBC Distribution Width 12.3 % (11.5-14.5); Red Blood Cell (RBC) Count 3.61 mill/uL (4.70-6.10); White Blood Cell (WBC) Count 13.5 thou/uL (4.8-10.8)
[2019-11-27 04:50] LABS: Anion Gap 13 mmol/L (10-20); BUN (Urea Nitrogen) 23 mg/dL (8.4-25.7); Calc. Creatinine Clearance 97 mL/min (70-130); Calcium 8.8 mg/dL (7.8-10.44); Carbon Dioxide 22 mmol/L (23-31); Chloride 103 mmol/L (98-107); Estimated GFR-MDRD Greater than 90; Glucose 111 mg/dL (83-110); Potassium 3.6 mmol/L (3.5-5.1); Sodium 134 mmol/L (136-145)
[2019-11-27 05:38] VITALS: BMI 25.9
[2019-11-27] MEDS: Hydrocortisone Sod Succ/PF 100 mg/2 ml Vial IVP SCH (06:14)
[2019-11-27] MEDS: Famotidine 20 MG TAB PO SCH ×2 (08:56→20:38)
[2019-11-27] MEDS: Metoprolol Tartrate 25 MG TAB PO SCH ×2 (08:56→20:39)
[2019-11-27] MEDS: Hydrocortisone 10 mg Tablet PO SCH ×2 (08:56→21:09)
[2019-11-27] MEDS: Gabapentin 100 MG CAP PO SCH ×2 (08:56→20:39)
--- NOTE | 2019-11-27 09:46 | PDOC.HOSPP ---
- Subjective Encounter Date: 11/27/19 Encounter Time: 09:45 Subjective: Mr. Sepulveda was seen today in follow-up of UTI with sepsis. He would like to go back to his nursing facility. He is orineted to person place and time,but will get a little confused intermittently. - Objective Vital Signs & Weight: Vital Signs (12 hours) Temp Pulse Resp BP Pulse Ox 11/27/19 08:53 97.9 F 96 20 186/86 H 93 L 11/27/19 04:00 98.1 F 80 23 H 185/81 H 92 L 11/26/19 23:58 98.6 F 83 23 H 165/69 H 92 L Weight Admit Weight 166 lb 8 oz Weight 165 lb 3.2 oz I&O: 11/26/19 11/27/19 11/28/19 06:59 06:59 06:59 Intake Total 1167 300 Balance 1167 300 Result Diagrams: 11/27/19 04:12 11/27/19 04:12 Additional Labs: Accuchecks 11/27/19 06:42 POC Glucose 118 H Hospitalist ROS - Medication Medications: Active Medications Generic Name Dose Route Start Last Admin Trade Name Freq PRN Reason Stop Dose Admin Acetaminophen/Codeine Phosphate 1 tab 11/25/19 10:36 11/26/19 22:51 Tylenol #3 PO 1 tab Q8H PRN Administration MOD-SEV PAIN Cholecalciferol 2,000 units 11/26/19 09:00 11/27/19 08:56 Vitamin D3 PO 2,000 units DAILY PASHA Administration Duloxetine HCl 20 mg 11/26/19 09:00 11/27/19 08:56 Cymbalta PO 20 mg DAILY PASHA Administration Famotidine 20 mg 11/24/19 21:00 11/27/19 08:56 Pepcid PO 20 mg BID PASHA Administration Gabapentin 100 mg 11/25/19 21:00 11/27/19 08:56 Neurontin PO 100 mg BID PASHA Administration Hydralazine HCl 10 mg 11/24/19 19:12 11/26/19 16:38 Apresoline SLOW IVP 10 mg Q4H PRN Administration SBP > 180 and HR < 70 Hydrocortisone 10 mg 11/25/19 21:00 11/27/19 08:56 Cortef PO 10 mg BID PASHA Administration Hydrocortisone Sodium Succinate 50 mg 11/24/19 22:00 11/27/19 06:14 Solu-Cortef IVP 50 mg Q8HR PASHA Administration Ceftriaxone Sodium 1 gm/ 100 mls @ 200 mls/hr 11/24/19 20:00 11/26/19 22:00 Sodium Chloride IVPB 100 mls 2000 PASHA Administration Losartan Potassium 75 mg 11/25/19 21:00 11/26/19 22:01 Cozaar PO 75 mg HS PASHA Administration Metoprolol Tartrate 25 mg 11/25/19 21:00 11/27/19 08:56 Lopressor PO 25 mg BID PASHA Administration Pramipexole Dihydrochloride 0.5 mg 11/25/19 21:00 11/26/19 22:01 Mirapex PO 0.5 mg HS PASHA Administration - Exam Eye: PERRL, anicteric sclera Heart: RRR, no murmur, no gallops, no rubs, normal peripheral pulses Respiratory: CTAB, no wheezes, no rales, no ronchi, normal chest expansion Gastrointestinal: soft, non-tender, non-distended, normal bowel sounds, no palpable masses, no hepatomegaly, no splenomegaly Extremities: no cyanosis, 1+ LE edema (trace pedal edema in the lower extremities) Hosp A/P (1) UTI (urinary tract infection) Status: Acute (2) Sepsis Code(s): A41.9 - SEPSIS, UNSPECIFIED ORGANISM Status: Acute (3) Physical deconditioning Code(s): R53.81 - OTHER MALAISE Status: Acute (4) CAD (coronary artery disease) Code(s): I25.10 - ATHSCL HEART DISEASE OF [place] CORONARY ARTERY W/O ANG PCTRS Status: Chronic Qualifiers: (5) COPD (chronic obstructive pulmonary disease) Status: Chronic (6) Hypertension Code(s): I10 - ESSENTIAL (PRIMARY) HYPERTENSION Status: Chronic Qualifiers: (7) 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 * Will change to Omnicef * Parkinson's disease- stable * HTN- blood pressure is elevated-continue to observe, and treat with PN medications * Hyponatremia- improved * COPD- stable- continue home medications and PRN Duonebs * [place]'s disease- stable
[2019-11-27] MEDS: hydrALAZINE 20 MG/ML VIAL SLOW IVP PRN (11:13)
--- NOTE | 2019-11-27 13:40 | PQF ---
DATE: 11-27-19 ATTN: DR. BRENDAN GLOVER Please exercise your independent, professional judgment in responding to the clarification form. Clinical indicators are provided on the bottom of this form for your review Please check appropriate box(s): [ X ] Encephalopathy: Type: [ X ] Acute [ ] Subacute [ ] Chronic Etiology: [ X ] Metabolic [ ] Toxic [ ] Hypertensive [ ] Septic [ ] Other (please specify) [ ] Transient Alteration of Awareness [ ] Other diagnosis [ ] Unable to determine In addition, please specify: Present on Admission (POA): [ X ] Yes [ ] No [ ] Unable to determine For continuity of documentation, please document condition throughout progress notes and discharge summary. Thank You. CLINICAL INDICATORS - SIGNS / SYMPTOMS / LABS / RESULTS AND LOCATION IN EMR: ER DX: 11-24-19: UTI, AMS H&P: 11-24-19: HE HAS BEEN SLOW TO RESPOND IN THE NH. SAYS HE "FEELS WELL" AND DOES NOT KNOW WHY HE IS IN THE HOSPITAL. ADMITTED FOR UTI WITH SEPSIS PN DR. GLOVER 11-27-19: MILD CONFUSION- HE MAY HAVE SOME UNDERLYING DEMENTIA, OR SUN-DOWNING- HE WAS MORE CONFUSED LAST NIGHT, AND APPEARS TO BE IMPROVING- WILL MONITOR THE DAY PROGRESSES, AND HE MAY BE D/CD BACK TO THE NH, MAY DO BETTER IN FAMILIAR SURROUNDINGS. RISK FACTORS / RESULTS AND LOCATION IN EMR: H&P: 11-24-19: ADMITTED FOR UTI WITH SEPSIS PN DR. GLOVER 11-27-19: HTN- BP IS ELEVATED-CONTINUE TO OBSERVE, AND TREAT WITH PN MEDICATIONS TREATMENTS / RESULTS AND LOCATION IN EMR: MAR: 11-27-19: OMNICEF PO, 11-24-19: ROCEPHIN IV, 11-24-19: NS IVF PN DR. GLOVER 11-27-19: HTN- BP IS ELEVATED-CONTINUE TO OBSERVE, AND TREAT WITH PN MEDICATIONS (This form is maintained as a part of the permanent medical record) 2014 [employer]. All Rights Reserved MARIANNA [email or web address] Office: [phone] [facility]
[2019-11-27] MEDS: Cefdinir 300 MG CAP PO SCH (20:38)
[2019-11-27] MEDS: Pramipexole Di-HCl 0.25 MG TAB PO SCH (20:38)
[2019-11-27] MEDS: Losartan 25 MG TAB PO SCH (20:39)
[2019-11-28 03:50] LABS: #Eosinphils 0.1 thou/uL (0.0-0.7); #Monocytes 1.5 thou/uL (0.11-0.59); %Basophils 0.3 % (0.0-1.0); %Eosinophils 0.6 % (0.0-10.0); %Lymphocytes 23.9 % (21.0-51.0); %Monocytes 11.9 % (0.0-10.0); %Neutrophils 63.4 % (42.0-75.0); Hemoglobin 11.6 g/dL (14.0-18.0); Mean Corpuscular HGB CONC 34.1 g/dL (32.0-36.0); Mean Corpuscular Hemoglobin 30.9 pg (27.0-31.0); Mean Corpuscular Volume 90.6 fL (78.0-98.0); Mean Platelet Volume 5.9 fL (7.4-10.4); Platelet Count 594 thou/uL (130-400); RBC Distribution Width 12.3 % (11.5-14.5); Red Blood Cell (RBC) Count 3.76 mill/uL (4.70-6.10); White Blood Cell (WBC) Count 12.6 thou/uL (4.8-10.8)
[2019-11-28] MEDS: Metoprolol Tartrate 25 MG TAB PO SCH ×2 (09:35→21:29)
[2019-11-28] MEDS: Hydrocortisone 10 mg Tablet PO SCH ×2 (09:36→21:28)
[2019-11-28] MEDS: Cefdinir 300 MG CAP PO SCH ×2 (09:36→21:28)
[2019-11-28] MEDS: Gabapentin 100 MG CAP PO SCH ×2 (09:36→21:28)
[2019-11-28] MEDS: Famotidine 20 MG TAB PO SCH ×2 (09:37→21:30)
[2019-11-28] MEDS: hydrALAZINE 20 MG/ML VIAL SLOW IVP PRN ×2 (11:51→19:48)
[2019-11-28] MEDS: Acetaminophen/Codeine 30-300mg Tablet PO PRN (13:15)
--- NOTE | 2019-11-28 13:28 | PDOC.HOSPP ---
- Subjective Encounter Date: 11/28/19 Encounter Time: 12:45 Subjective: pt not verbalizing muc. d/w RN and CM. BP quite high. - Objective Vital Signs & Weight: Vital Signs (12 hours) Temp Pulse Resp BP BP Pulse Ox 11/28/19 12:28 91 157/87 H 11/28/19 12:00 97.6 F 68 20 182/82 H 94 L 11/28/19 11:51 68 182/82 H 11/28/19 08:00 98.5 F 68 18 184/82 H 96 11/28/19 03:35 98.2 F 90 16 168/75 H 98 Weight Admit Weight 166 lb 8 oz Weight 166 lb 5.42 oz I&O: 11/27/19 11/28/19 11/29/19 06:59 06:59 06:59 Intake Total 300 240 Output Total 300 Balance 300 -60 Result Diagrams: 11/28/19 03:30 11/27/19 04:12 Hospitalist ROS - Medication Medications: Active Medications Generic Name Dose Route Start Last Admin Trade Name Freq PRN Reason Stop Dose Admin Acetaminophen/Codeine Phosphate 1 tab 11/25/19 10:36 11/28/19 13:15 Tylenol #3 PO 1 tab Q8H PRN Administration MOD-SEV PAIN Cefdinir 300 mg 11/27/19 21:00 11/28/19 09:36 Omnicef PO 300 mg BID PASHA Administration Cholecalciferol 2,000 units 11/26/19 09:00 11/28/19 09:36 Vitamin D3 PO 2,000 units DAILY PASHA Administration Duloxetine HCl 20 mg 11/26/19 09:00 11/28/19 09:35 Cymbalta PO 20 mg DAILY PASHA Administration Famotidine 20 mg 11/24/19 21:00 11/28/19 09:37 Pepcid PO 20 mg BID PASHA Administration Gabapentin 100 mg 11/25/19 21:00 11/28/19 09:36 Neurontin PO 100 mg BID PASHA Administration Hydralazine HCl 10 mg 11/24/19 19:12 11/28/19 11:51 Apresoline SLOW IVP 10 mg Q4H PRN Administration SBP > 180 and HR < 70 Hydrocortisone 10 mg 11/25/19 21:00 11/28/19 09:36 Cortef PO 10 mg BID PASHA Administration Losartan Potassium 75 mg 11/25/19 21:00 11/27/19 20:39 Cozaar PO 75 mg HS PASHA Administration Metoprolol Tartrate 25 mg 11/25/19 21:00 11/28/19 09:35 Lopressor PO 25 mg BID PASHA Administration Pramipexole Dihydrochloride 0.5 mg 11/25/19 21:00 11/27/19 20:38 Mirapex PO 0.5 mg HS PASHA Administration - Exam General Appearance: NAD Eye: PERRL ENT: normocephalic atraumatic Neck: supple Heart: normal peripheral pulses Respiratory: CTAB Gastrointestinal: soft, normal bowel sounds Skin: normal turgor Hosp A/P - Plan Hosp A/P (1) UTI (urinary tract infection) Status: Acute (2) Sepsis Code(s): A41.9 - SEPSIS, UNSPECIFIED ORGANISM Status: Acute (3) Physical deconditioning Code(s): R53.81 - OTHER [place] Status: Acute (4) CAD (coronary artery disease) Code(s): I25.10 - ATHSCL HEART DISEASE OF [place] CORONARY ARTERY W/O ANG PCTRS Status: Chronic Qualifiers: (5) COPD (chronic obstructive pulmonary disease) Status: Chronic (6) Hypertension Code(s): I10 - ESSENTIAL (PRIMARY) HYPERTENSION Status: Chronic Qualifiers: (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 * * Parkinson's disease- stable * HTN- blood pressure is elevated-titrate his meds * Hyponatremia- improved--134 * COPD- stable- continue home medications and PRN Duonebs * [place]'s disease- stable wait untl BP reasonable and Na ok am dc, possible to his snf.
[2019-11-28] MEDS ORDERED: Losartan 25 MG TAB PO SCH (21:00)
[2019-11-28] MEDS: Pramipexole Di-HCl 0.25 MG TAB PO SCH (21:30)
[2019-11-29] MEDS: hydrALAZINE 20 MG/ML VIAL SLOW IVP PRN (08:08)
[2019-11-29] MEDS: Metoprolol Tartrate 25 MG TAB PO SCH (08:10)
[2019-11-29] MEDS: Cefdinir 300 MG CAP PO SCH (08:11)
[2019-11-29] MEDS: Gabapentin 100 MG CAP PO SCH (08:11)
[2019-11-29] MEDS: Famotidine 20 MG TAB PO SCH (08:12)
[2019-11-29] MEDS: Hydrocortisone 10 mg Tablet PO SCH (08:14)
[2019-11-29 12:49] VITALS: BP 136/65; TEMP 98.4
--- NOTE | 2019-11-30 00:30 | DIS ---
DATE OF ADMISSION: 11/24/2019 DATE OF DISCHARGE: 11/29/2019 DISCHARGE DIAGNOSES: 1. Sepsis secondary to urinary tract infection. 2. Physical deconditioning. 3. Stable chronic obstructive pulmonary disease. 4. Hypertension. 5. [place] disease. 6. Chronic hyponatremia. 7. Coronary artery disease. DISCHARGE MEDICATIONS: 1. Omnicef 300 mg twice a day for 5 days. 2. Pramipexole 0.5 mg at bedtime. 3. Senna one tablet twice a day. 4. Mag-Ox as needed. 5. Tylenol with codeine 1 tablet q.8 hours. 6. Metoprolol tartrate 25 mg twice a day. 7. Losartan 75 mg daily. 8. Hydrocortisone 10 mg twice a day. 9. Gabapentin 100 mg twice a day. 10. Cymbalta 20 mg daily. 11. Vitamin D3 2000 units daily. 12. Eye drops. HOSPITAL COURSE: Please see the history and physical and daily progress note for more details. A 74-year-old male, admitted with sepsis secondary to urinary tract infection. His urine culture grew E coli. Blood cultures negative for 48 hours. His urine culture grew E coli and is sensitive to cephalosporin. He has overall physical deconditioning that needs ongoing therapy. The patient also has a history of Parkinson disease and that was stable. COPD was stable during this hospitalization. The patient does take hydrocortisone for his [place] disease. He has stabilized medically and hemodynamically stable to go back to his nursing home facility. DISCHARGE INSTRUCTIONS: 1. Activity with supervision. 2. Regular diet. 3. Follow up with primary care physician in one week. TIME SPENT: Discharge time took 30 minutes. Job ID: [id number] [facility]
== END 2019-11-29 12:49 | DRG 871 ==
LOC: ERS 11:57 → 2NO 18:26 → ONC 11-27 12:54
PROVIDERS: ADMIT Internal Medicine; ATTEND Internal Medicine
DX: A41.9 Sepsis, unspecified organism (principal); G93.41 Metabolic encephalopathy; N39.0 Urinary tract infection, site not specified; E87.1 Hypo-osmolality and hyponatremia; E27.1 Primary adrenocortical insufficiency; Z16.19 Resistance to other specified beta lactam antibiotics; F05 Delirium due to known physiological condition; J44.9 Chronic obstructive pulmonary disease, unspecified; I10 Essential (primary) hypertension; I25.10 Atherosclerotic heart disease of native coronary artery without angina pectoris; B96.20 Unspecified Escherichia coli [E. coli] as the cause of diseases classified elsewhere; G20 Parkinson's disease; R40.2362 Coma scale, best motor response, obeys commands, at arrival to emergency department; R40.2142 Coma scale, eyes open, spontaneous, at arrival to emergency department; R40.2252 Coma scale, best verbal response, oriented, at arrival to emergency department; Z88.5 Allergy status to narcotic agent; E86.0 Dehydration; E87.5 Hyperkalemia; Z91.048 Other nonmedicinal substance allergy status
CPT/HCPCS: 36415; 36416; 51701; 70450; 71045; 80048; 80053; 81003; 81015; 82553; 83605; 84484; 85025; 87040; 87077; 87086; 87186; 93005; 94760; 96365; 96367; J0360; J0692; J0696; J1720; J3370; J3490